=== PATIENT | female | born 1955 | race Caucasian/White ===

== ENCOUNTER → 2018-09-24 09:33 | Outpatient (CLI) | payer OTHER, SELFPAY ==
[2018-09-24 12:47] LABS: Erythrocyte Sedimentation Rate 5 mm/hr (0-30)
[2018-09-24 12:49] LABS: Absolute Lymphocyte Count 2.21 X10^3/ul (0.83-4.51); Absolute Neutrophil Count 3.8 X10^3/uL (2.0-7.7); Basophil# 0.02 X10^3/uL; Basophil% 0.3 % (0-1); Eosinophil# 0.11 X10^3/uL; Eosinophils% 1.7 % (0-5); Hematocrit 45.7 % (37-47); Hemoglobin 14.6 g/dl (12.0-15.0); Lymphocyte # 2.21 X10^3/ul (4.0); Lymphocyte % 33.3 % (19-41); Mean Corp Hgb Conc 31.9 g/gl (32-36); Mean Corpuscular Hgb 29.3 pg (27.0-32.0); Mean Corpuscular Volume 91.8 fL (81-99); Mean Platelet Vol. 10.7 fl (6.2-12.0); Monocyte# 0.47 X10^3/uL; Monocyte% 7.1 % (0-10); Neutrophil % 57.3 % (47-70); Platelet Count 371 K/mm3 (150-450); RBC Distribution Width CV 13.5 % (11.6-14.6); RBC Distribution Width SD 44.6 fl (35.1-43.9); Red Blood Count 4.98 M/mm3 (4.2-5.4); White Blood Count 6.6 K/mm3 (4.4-11.0)
[2018-09-24 12:50] LABS: POSITIVE COUNT NO; POSITIVE DIFFERENTIAL NO; POSITIVE MORPHOLOGY NO
[2018-09-24 13:27] LABS: ALB/GLOB Ratio 1.3 RATIO (0.9-2.4); AST(SGOT) 24 U/L (15-37); Alanine Aminotransfer ALT/SGPT 36 U/L (13-56); Albumin, Serum 4.3 g/dL (3.2-5.0); Alkaline Phosphatase 112 U/L (45-117); Anion Gap 10 (5-15); BUN 17 mg/dL (7-18); BUN/Creat Ratio 25.6 RATIO (10-20); CRP < 2.90 mg/L (0.0-3.0); Calcium,Total 9.1 mg/dL (8.5-10.1); Chloride 106 mmol/L (98-107); Cholesterol 229 mg/dL (200); Creatinine, Serum 0.66 mg/dL (0.55-1.02); EST Glomerular Filtration Rate 96 mL/min (>60); Est Glom Filt Rate - Afr Amer 116 mL/min (>60); Globulin 3.3 g/dL (2.2-4.2); Glucose 77 mg/dL (74-106); High Density Lipoprotein 104 mg/dL; Protein, Total 7.6 g/dL (6.4-8.2); Rheumatoid Factor < 10.0 IU/mL (<15); Sodium Level 143 mmol/L (136-145); Thyroid Stim Hormone (TSH) 2.23 uIU/mL (0.358-3.74); Triglycerides 61 mg/dL; Very Low Density Lipoprotein 12 mg/dL (5-40)
[2018-09-24 13:36] LABS: Vitamin D,25 Hydroxy 12.2 ng/mL (29.95-100.01)
[2018-09-26 08:13] LABS: CCP IgG Antibodies 9 units (0-19)
== END ==
PROVIDERS: Family Provider Nurse Practitioner; PCP Nurse Practitioner; Referring Provider Nurse Practitioner; Visit Provider Nurse Practitioner
DX: M25.549 Pain in joints of unspecified hand (principal); E55.9 Vitamin D deficiency, unspecified; E03.9 Hypothyroidism, unspecified; Z13.220 Encounter for screening for lipoid disorders
CPT/HCPCS: 36415; 80053; 80061; 82306; 84443; 85025; 85652; 86140; 86200; 86431

== ENCOUNTER → 2018-09-29 14:52 | Outpatient (CLI) | payer OTHER, SELFPAY ==
--- NOTE | 2018-09-29 14:54 | RAD_ITS ---
STUDY: X-RAY - LEFT HAND REASON FOR EXAM: Female, 63 years old. Pain. TECHNIQUE: 3 view(s) of the hand. COMPARISON: None. FINDINGS: There is joint space narrowing of the radiocarpal articulation consistent with degenerative arthrosis. Normal distal radioulnar joint. Normal visualized carpal bones. There is degenerative joint disease of the scaphotrapezium / trapezoid articulation. The remainder of the carpal articulations are normal. There is degenerative arthrosis of the carpometacarpal (CMC) articulation of the thumb. Normal second through fifth carpometacarpal joints. Normal metacarpi. Normal metacarpophalangeal joint of the thumb. Normal interphalangeal joint of the thumb. Normal proximal and distal phalanges of the thumb. There is degenerative arthrosis of the metacarpophalangeal (MCP) joints. There is diffuse articular joint space narrowing of the proximal and distal interphalangeal joints of the second through fifth fingers, but without erosive changes or periarticular soft tissue swelling. Normal phalanges of the second through fifth fingers. The soft tissue structures are unremarkable. RAD/Hand Min 3 Views IMPRESSION: Degenerative changes. Electronically Signed: Bryant Acuña, at 10:26 EST , Service support ,
--- NOTE | 2018-09-29 14:54 | RAD_ITS ---
STUDY: X-RAY - RIGHT HAND REASON FOR EXAM: Female, 63 years old. Right hand pain TECHNIQUE: 3 view(s) of the hand. COMPARISON: None. FINDINGS: Degenerative change of the radiocarpal joint. Normal distal radioulnar joint. Normal visualized carpal bones. Normal carpal articulations Moderate degenerative change of the first carpometacarpal and triscaphe the joints. Normal second through fifth carpometacarpal joints. Normal metacarpi. Mild degenerative change of the first metacarpophalangeal joint and interphalangeal joint of the thumb. Normal proximal and distal phalanges of the thumb. Normal metacarpophalangeal joints of the second through fifth fingers. Normal proximal and distal interphalangeal joints of the second through fifth fingers. Normal phalanges of the second through fifth fingers. The soft tissue structures are unremarkable. RAD/Hand Min 3 Views IMPRESSION: Multifocal osteoarthritic change Electronically Signed: Eloy Buckner MD at 0:15 EST Tel , Service support ,
== END ==
PROVIDERS: Family Provider Nurse Practitioner; PCP Nurse Practitioner; Referring Provider Nurse Practitioner; Visit Provider Nurse Practitioner
DX: M25.549 Pain in joints of unspecified hand (principal)
CPT/HCPCS: 73130

== ENCOUNTER → 2018-10-02 13:02 | Outpatient (CLI) | payer OTHER, SELFPAY ==
--- NOTE | 2018-10-02 13:21 | BD_ITS ---
STUDY: DUAL ENERGY X-RAY ABSORPTIOMETRY / DXA REASON FOR EXAM: Female, 63 years old. The patient is postmenopausal. Loss of height. TECHNIQUE: Bone Mineral Density (BMD) measurements of lumbar spine and bilateral hips were obtained. COMPARISON: None. FINDINGS: Lumbar Spine (L1-L4): g/cm2 (0.837) / T-score (-2.9) / Z-score (-1.5) Findings are suggestive of osteoporosis with a high fracture risk. Left Femur Total: g/cm2 (0.773) / T-score (-1.9) / Z-score (-0.8) Left Femoral Neck: g/cm2 (0.776) / T-score (-1.9) / Z-score (-0.5) Right Femur Total: g/cm2 (0.771) / T-score (-1.9) / Z-score (-0.8) Right Femoral Neck: g/cm2 (0.768) / T-score (-1.9) / Z-score (-0.6) BD/Dexa Bone Density Study IMPRESSION: The patient is considered osteoporotic as outlined below according to World Vikram Organization (WHO) criteria with a high fracture risk. Reference Information: The T-score is the number of standard deviations above or below the standard which is normal for young adults at their peak bone mineral density. The World Health Organization (WHO) interprets the T-scores as follows: Above -1 Normal bone density Between -1 and -2.5 Osteopenia Equal to / or below -2.5 Osteoporosis As a practical clinical guideline, osteopenia may be graded as follows: Mild -1 through -1.5 Moderate -1.6 through -2.0 Severe -2.1 through -2.4 The Z-score is the number of standard deviations above or below age-matched controls. A Z-score of less than -1.5 would be considered abnormal. References: 1. NIH Osteoporosis and Related Bone Diseases http://www.osteo.org 2. International Society for Clinical Densitometry http://www.iscd.org 3. National Osteoporosis Foundation http://www.nof.org Electronically Signed: Bryant Acuña, at 11:46 EST , Service support ,
== END ==
PROVIDERS: Family Provider Nurse Practitioner; PCP Nurse Practitioner; Visit Provider Nurse Practitioner
DX: Z13.820 Encounter for screening for osteoporosis (principal)
CPT/HCPCS: 77080

== ENCOUNTER 2018-10-22 23:20 | Emergency (ER) | payer OTHER, SELFPAY ==
[2018-10-22 23:21] VITALS: BP 200/95; PULSE 85; RESP 16; TEMP 37.1; O2SAT 99; BMI 25.7
[2018-10-22 23:33] VITALS: BP 194/85; PULSE 87; RESP 15; O2SAT 97
--- NOTE | 2018-10-22 23:34 | RAD_ITS ---
STUDY: X-RAY CHEST REASON FOR EXAM: Female, 63 years old. Hypertension TECHNIQUE: Frontal and lateral views of the chest. COMPARISON: None. FINDINGS: There is hyperinflation of the lungs consistent with chronic obstructive lung disease (COPD). There is no demonstrated pleural abnormality. Normal size heart. Normal mediastinum and brandt. Normal visualized pulmonary arteries. Normal visualized aortic arch and descending thoracic aorta. There are diffuse degenerative changes of the visualized thoracic spine. Normal visualized ribs, clavicles, and shoulders. There is no demonstrated abnormality of the visualized soft tissue structures of the upper abdomen. RAD/Chest PA and Lateral IMPRESSION: No acute cardiopulmonary disease identified. Findings suggest possible COPD. Electronically Signed: Nathen Borden, at 1:00 EDT Tel , Service support ,
--- NOTE | 2018-10-22 23:34 | EKG12_ITS ---
Test Reason : HYPERTENSION Blood Pressure : / mmHG Vent. Rate : 082 BPM Atrial Rate : 082 BPM P-R Int : 128 ms QRS Dur : 088 ms QT Int : 380 ms P-R-T Axes : 061 026 028 degrees QTc Int : 443 ms Normal sinus rhythm Normal ECG Confirmed by JACI KWONG, SHIRLEY ([id number]), editor in chief newspaper ALBERTO VARNER ([id number]) on 10/23/2018 1:14:39 PM Referred By: Confirmed By:SHIRLEY BEATTY MD
--- NOTE | 2018-10-22 23:39 | ED.DCSUM_ITS ---
- ER Visit Summary Date of Service: 10/22/18 Chief Complaint: Hypertension History of Present Illness: The patient is a 63 F who tells me that 2 weeks ago after a long hiatus she was seen by primary care. Was noted that her blood pressure was around 146 systolic. She is advised to get a blood pressure cuff and monitor her blood pressures at home return in 1 month. She states that tonight she got a blood pressure cuff and took it is in the 176 range. She took it again and it was a little bit more elevated. She states that all day she has felt a little bit off balance. She denies any headache or visual symptoms. No arm or leg weakness or paresthesias. No ringing in the ears or heartbeat in the ear. No neck pain or chest pain. Physical Examination: 194/85 heart rate of 87 respirations are 15 pulse ox 97% room air temperature 97 Gen: Well-nourished well-developed Head: Normocephalic atraumatic Eyes: Perrl EOMI ENT: TMs clear no rhinorrhea moist mucous membranes Neck: Supple no lymphadenopathy no JVD nontender CVS: Regular rate rhythm no murmurs normal S1-S2 Respiratory: No distress clear to auscultation bilaterally chest nontender Abdomen: Soft nontender nondistended normal bowel sounds no masses Back: Nontender Extremity: Nontender no edema Skin: Normal color no rash Neuro: alert orientated ?3 CN II-XII intact normal strength sensation reflexes gait cerebellar (finger to nose and heel to johns normal) NIH 0 Psych: Normal affect normal mood Test Results: BMP shows a normal creatinine. Troponin is negative. EKG is a normal sinus rhythm. Chest x-ray shows a normal mediastinal silhouette. CBC is normal. Head CT is negative. Emergency Department Course and Treatment: Patient's blood pressure has come down on its own to a systolic of 163. I spoke at length with the patient regarding dietary and lifestyle modifications as well as options of beginning treatment versus continued monitoring and following up with primary care. At this point I am going to write 5 mg amlodipine once a day have her continue to monitor pressures and follow-up in the office. Patient and are comfortable with this plan return if worsening or concerns Impression: 1. Primary hypertension This note was generated with FREEjitation software. It may contain incorrect words, spelling, and punctuation that were not noted in review of the chart prior to signing ED Disposition - Plan for ED Patient: Disposition: Home or Assisted Living Instructions: ED Hypertension New Begin Tx Prescriptions: Amlodipine [Norvasc] 5 mg PO DAILY #30 tab Referrals: Connie Billings NP-C [Primary Care Provider] - Keep [facility] appointment
[2018-10-23 00:03] VITALS: BP 170/82
[2018-10-23 00:04] LABS: Absolute Lymphocyte Count 3.11 X10^3/ul (0.83-4.51); Absolute Neutrophil Count 3.5 X10^3/uL (2.0-7.7); Basophil# 0.01 X10^3/uL; Basophil% 0.1 % (0-1); Eosinophils% 1.4 % (0-5); Hematocrit 42.4 % (37-47); Lymphocyte # 3.11 X10^3/ul (4.0); Lymphocyte % 42.2 % (19-41); Mean Corpuscular Hgb 30.2 pg (27.0-32.0); Mean Corpuscular Volume 91.6 fL (81-99); Mean Platelet Vol. 9.8 fl (6.2-12.0); Monocyte# 0.65 X10^3/uL; Monocyte% 8.8 % (0-10); Neutrophil # 3.49 X10^3/uL (2.7-7.7); Neutrophil % 47.4 % (47-70); Platelet Count 357 K/mm3 (150-450); RBC Distribution Width CV 12.9 % (11.6-14.6); RBC Distribution Width SD 42.5 fl (35.1-43.9); Red Blood Count 4.63 M/mm3 (4.2-5.4); White Blood Count 7.4 K/mm3 (4.4-11.0)
[2018-10-23 00:05] LABS: POSITIVE COUNT NO; POSITIVE DIFFERENTIAL NO; POSITIVE MORPHOLOGY NO
[2018-10-23 00:16] LABS: Anion Gap 9 (5-15); BUN 22 mg/dL (7-18); BUN/Creat Ratio 31.3 RATIO (10-20); Calcium,Total 9.1 mg/dL (8.5-10.1); Chloride 106 mmol/L (98-107); EST Glomerular Filtration Rate 90 mL/min (>60); Est Glom Filt Rate - Afr Amer 109 mL/min (>60); Estimated Creatinine Clearance 74.98 ml/min; Glucose 104 mg/dL (74-106); Potassium 3.5 mmol/L (3.5-5.1); Sodium Level 144 mmol/L (136-145)
[2018-10-23 00:56] VITALS: BP 163/86; PULSE 81; RESP 13; O2SAT 96
--- NOTE | 2018-10-23 23:34 | CT_ITS ---
STUDY: CT BRAIN WITHOUT CONTRAST REASON FOR EXAM: Female, 63 years old. Dizziness RADIATION DOSAGE (If Supplied By Facility): CTDIvol = ( 44.99 ) mGy, DLP = ( 762.36 ) mGycm TECHNIQUE: Transaxial CT imaging of the brain was performed without administration of intravenous contrast material. Individualized dose optimization techniques were used for this CT. COMPARISON: No relevant priors. FINDINGS: Normal soft tissue structures. Normal calvarium. Normal size ventricles and extra-axial spaces for the patient's age. Normal white matter tracts of the cerebral hemispheres. Normal basal ganglia and thalami. Normal brainstem. Normal cerebellum. There is no intracranial hemorrhage. There are no findings of an acute ischemic infarction. Normal visualized paranasal sinuses. CT/Brain/Head without Contrast IMPRESSION: Normal unenhanced CT scan of the brain. Electronically Signed: Nathen Borden, at 0:27 EDT Tel , Service support ,
== END 2018-10-23 00:56 | disposition home or self-care (01) ==
PROVIDERS: Emergency Provider Emergency Medicine; Family Provider Nurse Practitioner; PCP Nurse Practitioner
DX: I10 Essential (primary) hypertension (principal); Z79.899 Other long term (current) drug therapy
CPT/HCPCS: 70450; 71046; 80048; 84484; 85025; 93005; 99285

== ENCOUNTER → 2018-10-27 13:31 | Outpatient (CLI) | payer OTHER, SELFPAY ==
[2018-10-22 23:21] VITALS: BMI 25.7
--- NOTE | 2018-10-27 13:32 | BI_ITS ---
MAMMOGRAPHY - BILATERAL SCREENING REASON FOR EXAM: Female, 63 years old. Routine annual screening examination. PERTINENT HISTORY: Non-contributory. Bilateral breast implants. TECHNIQUE: Digital bilateral breast frandy (3D mammographic acquisition) in the CC and MLO projections. 2-D mediolateral oblique (MLO) and craniocaudad (CC) views of both breasts were obtained. CAD: Full Field Digital Mammography with Computer Added Detection was performed. COMPARISON: Comparison is made with prior study dated September 18, 2016 and September 04, 2013. FINDINGS: Breast Composition: The breasts are heterogeneously dense, which may obscure small masses. There are no dominant masses or suspicious calcifications. Stable appearance of the bilateral breast implants. Stable appearance of the bilateral axillary lymph nodes. No other significant abnormalities are identified. There has been no significant change since the prior study. BI/SCREENING MAMM (CAD), BILAT IMPRESSION: Stable bilateral screening mammogram. Yearly follow-up mammogram recommended. (A) ASSESSMENT CATEGORY: BIRADS Category 2: Benign. A letter regarding these results will be sent to the patient by the facility within 30 days. Approximately 10% of breast cancers are not detected by mammography. A normal mammogram should not delay biopsy of a clinically suspicious abnormality. [id number] Electronically Signed: Bryant Acuña, at 15:50 EDT , Service support ,
== END ==
PROVIDERS: Family Provider Nurse Practitioner; PCP Nurse Practitioner; Referring Provider Obstetrics & Gynecology; Visit Provider Obstetrics & Gynecology
DX: Z12.31 Encounter for screening mammogram for malignant neoplasm of breast (principal)
CPT/HCPCS: 77063; 77067

== ENCOUNTER → 2020-02-02 | Outpatient (CLI) | payer OTHER, SELFPAY ==
[2020-02-02 16:44] LABS: Hematocrit 39.8 % (37-47); Hemoglobin 13.3 g/dL (12.0-15.0); Mean Corp Hgb Conc 33.4 g/dL (32-36); Mean Corpuscular Hgb 31.5 pg (27.0-32.0); Mean Corpuscular Volume 94.3 fL (81-99); Mean Platelet Vol. 11.5 fl (6.2-12.0); Platelet Count 215 K/mm3 (150-450); RBC Distribution Width CV 13.9 % (11.6-14.6); RBC Distribution Width SD 47.2 fl (35.1-43.9); Red Blood Count 4.22 M/mm3 (4.2-5.4); White Blood Count 8.1 K/mm3 (4.4-11.0)
[2020-02-02 17:19] LABS: ALB/GLOB Ratio 1.3 RATIO (0.9-2.4); AST(SGOT) 17 U/L (15-37); Alanine Aminotransfer ALT/SGPT 23 U/L (13-56); Albumin, Serum 4.3 g/dL (3.2-5.0); Alkaline Phosphatase 63 U/L (45-117); Anion Gap 7 (5-15); BUN 26 mg/dL (7-18); BUN/Creat Ratio 40.3 RATIO (10-20); Chloride 110 mmol/L (98-107); Creatinine, Serum 0.64 mg/dL (0.55-1.02); EST Glomerular Filtration Rate 99 mL/min (>60); Est Glom Filt Rate - Afr Amer 119 mL/min (>60); Globulin 3.2 g/dL (2.2-4.2); Glucose 107 mg/dL (74-106); Potassium 4.1 mmol/L (3.5-5.1); Protein, Total 7.5 g/dL (6.4-8.2); Sodium Level 146 mmol/L (136-145); Thyroid Stim Hormone (TSH) 0.95 uIU/mL (0.358-3.74)
== END | disposition home or self-care (01) ==
LOC: LABSPEC 15:05
PROVIDERS: PCP Nurse Practitioner; Referring Provider Nurse Practitioner; Visit Provider Nurse Practitioner
DX: E03.9 Hypothyroidism, unspecified (principal); N20.0 Calculus of kidney
CPT/HCPCS: 80053; 84443; 85027

== ENCOUNTER → 2020-11-15 10:13 | Outpatient (CLI) | payer OTHER, SELFPAY ==
--- NOTE | 2020-11-15 10:16 | BI_ITS ---
MAMMOGRAPHY - BILATERAL SCREENING REASON FOR EXAM: Female, 65 years old. Routine annual screening examination. PERTINENT HISTORY: Non-contributory. Bilateral breast implants. TECHNIQUE: Digital bilateral breast mamta (3D mammographic acquisition) in the CC and MLO projections. 2-D mediolateral oblique (MLO) and craniocaudad (CC) views of both breasts were obtained. CAD: Full Field Digital Mammography with Computer Added Detection was performed. COMPARISON: Comparison is made with prior study dated 10/27/2018 and 09/18/2016. FINDINGS: Breast Composition: The breasts are heterogeneously dense, which may obscure small masses. There are no dominant masses or suspicious calcifications. Stable appearance of the bilateral breast implants as well as the benign appearing axillary lymph nodes. No other significant abnormalities are identified. There has been no significant change since the prior study. BI/SCRN MAMM (CAD)W/MAMTA BILAT IMPRESSION: Stable bilateral screening mammogram. Yearly follow-up mammogram recommended. (A) ASSESSMENT CATEGORY: BIRADS Category 2: Benign. A letter regarding these results will be sent to the patient by the facility within 30 days. Approximately 10% of breast cancers are not detected by mammography. A normal mammogram should not delay biopsy of a clinically suspicious abnormality. [id number] Electronically Signed: Bryant Acuña MD at 13:07 EDT , Service support ,
--- NOTE | 2020-11-15 10:18 | BD_ITS ---
STUDY: DUAL ENERGY X-RAY ABSORPTIOMETRY / DXA REASON FOR EXAM: Female, 65 years old. Z780. The patient is postmenopausal. Loss of height. TECHNIQUE: Bone Mineral Density (BMD) measurements of lumbar spine and bilateral hips were obtained. COMPARISON: Comparison is made with prior study dated 10/02/2018. FINDINGS: Lumbar Spine (L1-L4): g/cm2 (0.840) / T-score (-2.8) / Z-score (-1.3) Findings are suggestive of osteoporosis with a high fracture risk. Left Femur Total: g/cm2 (0.770) / T-score (-1.9) / Z-score (-0.7) Left Femoral Neck: g/cm2 (0.761) / T-score (-2.0) / Z-score (-0.6) Right Femur Total: g/cm2 (0.804) / T-score (-1.6) / Z-score (-0.5) Right Femoral Neck: g/cm2 (0.777) / T-score (-1.9) / Z-score (-0.4) The T-Scores on the most recent prior examination were: Lumbar Spine (L1-L4): There has been improvement of bone density since the previous examination. Left Femur Total: which represents a worsening of 0.4%. Right Femur Total: which represents an improvement of 4.3%. BD/Dexa Bone Density Study IMPRESSION: The patient is considered osteoporotic as outlined below according to World Vikram Organization (WHO) criteria with a high fracture risk. There has been improvement of bone density since the previous examination. Reference Information: The T-score is the number of standard deviations above or below the standard which is normal for young adults at their peak bone mineral density. The World Health Organization (WHO) interprets the T-scores as follows: Above -1 Normal bone density Between -1 and -2.5 Osteopenia Equal to / or below -2.5 Osteoporosis As a practical clinical guideline, osteopenia may be graded as follows: Mild -1 through -1.5 Moderate -1.6 through -2.0 Severe -2.1 through -2.4 The Z-score is the number of standard deviations above or below age-matched controls. A Z-score of less than -1.5 would be considered abnormal. References: 1. NIH Osteoporosis and Related Bone Diseases www osteo.org 2. International Society for Clinical Densitometry www iscd.org 3. National Osteoporosis Foundation www nof.org Electronically Signed: Bryant Acuña MD at 14:25 EDT , Service support ,
== END ==
PROVIDERS: PCP Nurse Practitioner; Referring Provider Nurse Practitioner; Visit Provider Nurse Practitioner
DX: Z12.31 Encounter for screening mammogram for malignant neoplasm of breast (principal); Z78.0 Asymptomatic menopausal state
CPT/HCPCS: 77063; 77067; 77080

== ENCOUNTER → 2022-11-20 | Outpatient (CLI) | payer MEDICARE, OTHER, SELFPAY ==
--- NOTE | 2022-11-20 09:11 | BI_ITS ---
MAMMOGRAPHY - BILATERAL SCREENING REASON FOR EXAM: Female, 67 years old. Routine annual screening examination. PERTINENT HISTORY: Non-contributory. Bilateral breast implants. TECHNIQUE: Digital bilateral breast mamta (3D mammographic acquisition) in the CC and MLO projections. 2-D mediolateral oblique (MLO) and craniocaudad (CC) views of both breasts were obtained. CAD: Full Field Digital Mammography with Computer Added Detection was performed. COMPARISON: Comparison is made with prior study November 15, 2020 and October 27, 2018. FINDINGS: Breast Composition: The breasts are heterogeneously dense, which may obscure small masses. There are no dominant masses or suspicious calcifications. Stable appearance of the bilateral breast implants. Stable small benign-appearing bilateral axillary lymph nodes. No other significant abnormalities are identified. There has been no significant change since the prior study. BI/SCRN MAMM (CAD)W/MAMTA BILAT IMPRESSION: Stable bilateral screening mammogram. Yearly follow-up mammogram recommended. (A) ASSESSMENT CATEGORY: BIRADS Category 2: Benign. A letter regarding these results will be sent to the patient by the facility within 30 days. Approximately 10% of breast cancers are not detected by mammography. A normal mammogram should not delay biopsy of a clinically suspicious abnormality. [id number] Electronically Signed: Bryant Acuña MD at 10:32 EDT ,
--- NOTE | 2022-11-20 09:19 | BD_ITS ---
STUDY: DUAL ENERGY X-RAY ABSORPTIOMETRY / DXA REASON FOR EXAM: Female, 67 years old. Z780 TECHNIQUE: Bone Mineral Density (BMD) measurements of lumbar spine and bilateral hips were obtained. COMPARISON: Comparison is made with prior study November 15, 2020. FINDINGS: Lumbar Spine (L1-L4): g/cm2 (0.722) / T-score (-3.0) / Z-score (-1.1) Findings are suggestive of osteoporosis with a high fracture risk. Left Femur Total: g/cm2 (0.735) / T-score (-1.7) / Z-score (-0.4) Left Femoral Neck: g/cm2 (0.637) / T-score (-1.9) / Z-score (-0.3) Right Femur Total: g/cm2 (0.717) / T-score (-1.8) / Z-score (-0.5) Right Femoral Neck: g/cm2 (0.635) / T-score (-1.9) / Z-score (-0.3) The T-Scores on the most recent prior examination were: Lumbar Spine (L1-L4): There has been worsening of bone density since the previous examination. Left Femur Total: which represents an improvement of 3.5%. Right Femur Total: which represents a worsening of 3.7%. BD/Dexa Bone Density Study IMPRESSION: The patient is considered osteoporotic as outlined below according to World Vikram Organization (WHO) criteria with a high fracture risk. There has been worsening of bone density since the previous examination. Reference Information: The T-score is the number of standard deviations above or below the standard which is normal for young adults at their peak bone mineral density. The World Health Organization (WHO) interprets the T-scores as follows: Above -1 Normal bone density Between -1 and -2.5 Osteopenia Equal to / or below -2.5 Osteoporosis As a practical clinical guideline, osteopenia may be graded as follows: Mild -1 through -1.5 Moderate -1.6 through -2.0 Severe -2.1 through -2.4 The Z-score is the number of standard deviations above or below age-matched controls. A Z-score of less than -1.5 would be considered abnormal. References: 1. NIH Osteoporosis and Related Bone Diseases www osteo.org 2. International Society for Clinical Densitometry www iscd.org 3. National Osteoporosis Foundation www nof.org Electronically Signed: Bryant Acuña MD at 9:14 EDT ,
== END | disposition home or self-care (01) ==
LOC: OPBD 09:09
PROVIDERS: PCP Nurse Practitioner; Referring Provider Nurse Practitioner Family; Visit Provider Nurse Practitioner Family
DX: Z12.31 Encounter for screening mammogram for malignant neoplasm of breast (principal); Z78.0 Asymptomatic menopausal state
CPT/HCPCS: 77063; 77067; 77080

== ENCOUNTER → 2023-10-17 | Outpatient (CLI) | payer MEDICARE, OTHER, SELFPAY ==
--- NOTE | 2023-10-17 10:29 | MRI_ITS ---
STUDY: BILATERAL BREAST MR WITHOUT AND WITH CONTRAST REASON FOR EXAM: Female, 68 years old. Right breast pain. Displacement of implant. TECHNIQUE: Multi-sequence multi-echo imaging of both breasts was performed with a dedicated breast coil. T1-weighted and T2-weighted images were performed before the administration of contrast. T1-weighted images were also performed after the intravenous administration of 14 cc of Clariscan contrast. COMPARISON: Mammograms dated 11/20/2022 and 11/15/2020 FINDINGS: RIGHT BREAST: Scattered fibroglandular densities with no significant background enhancement. Subpectoral breast implant in normal position and likely is a dual lumen implant. No complications noted. No abnormal enhancing masses or areas of non-mass enhancement in the right breast. LEFT BREAST: Scattered fibroglandular densities with no significant background enhancement. Left subpectoral silicone implant in normal position without complications. No abnormal enhancing masses or areas of non-mass enhancement in the left breast. No enlarged or abnormal lymph nodes. No abnormality in the visualized regions of the chest or liver. MRI/Breast Bilateral W/O and W IMPRESSION: Right subpectoral implant in normal position and likely a dual lumen implant. No complications noted. Left subpectoral silicone implant in normal position. No other abnormality. CATEGORY: BIRADS Category 2: Benign. A letter regarding these results will be sent to the patient by the facility within 30 days. Electronically Signed: Ran Anderson MD at 12:55 EDT ,
[2023-10-17 10:53] LABS: CREATININE FINGERSTICK < 1.0 mg/dL (0.55-1.02); EGFR FINGERSTICK > 60.0000 mL/min (>60)
== END | disposition home or self-care (01) ==
PROVIDERS: PCP Nurse Practitioner Family; Referring Provider Nurse Practitioner Family; Visit Provider Nurse Practitioner Family
DX: T85.848A Pain due to other internal prosthetic devices, implants and grafts, initial encounter (principal); T85.42XA Displacement of breast prosthesis and implant, initial encounter
CPT/HCPCS: 77049; A9575; A4216; C8908

== ENCOUNTER → 2025-05-11 | Outpatient (CLI) | payer MEDICARE, OTHER, SELFPAY ==
--- NOTE | 2025-05-11 14:46 | ART_ITS ---
Reason For Study Reason For Study: Leg Pain Procedure A bilateral lower extremity continuous wave Doppler with analog waveform analysis and ankle brachial indexes. Left Segmental Pressures Left brachial= 145mmHg. Left posterior tibial artery = 159mmHg. Left dorsalis pedis artery = 148mmHg. Left digit = 103 mmHg. The left dorsalis pedis waveforms are triphasic. The left posterior tibial artery waveforms are triphasic. Right Segmental Pressures Right brachial= 146mmHg. Right posterior tibial artery = 176mmHg. Right dorsalis pedis artery = 160mmHg. Right digit = 123 mmHg. The right dorsalis pedis waveforms are triphasic. The right posterior tibial artery waveforms are triphasic. Indices The right ankle brachial index by the dorsalis pedis is 1.01. The right ankle brachial index by the posterior tibial artery is 1.09. The right digital-brachial index is 0.71. The left ankle brachial index by the dorsalis pedis is 1.10. The left ankle brachial index by the posterior tibial artery is 1.21. The left digital-brachial index is 0.84. VL/Ankle Brachial Index Interpretation Summary Right MIRIAM 1.21, normal. TBI and Doppler/PVR waveforms of the right ankle normal at rest. Left MIRIAM 1.09, normal. Doppler/PVR waveforms of the left ankle normal at rest. TBI diminished, pedal/digit disease vs spasm. Ordering Physician: Peng Campbell Referring Physician: PENG CAMPBELL TILE SETTER APPRENTICE Performed By: GERMAN DEL VALLE RVLewis
== END | disposition home or self-care (01) ==
LOC: CVS 14:42
PROVIDERS: PCP Nurse Practitioner Family; Referring Provider Nurse Practitioner Family; Visit Provider Nurse Practitioner Family
DX: M79.606 Pain in leg, unspecified (principal); I99.9 Unspecified disorder of circulatory system
CPT/HCPCS: 93922

== ENCOUNTER → 2025-05-18 | Outpatient (CLI) | payer MEDICARE, OTHER, SELFPAY ==
--- NOTE | 2025-05-18 07:01 | BI_ITS ---
EXAM: SCRN MAMM (CAD)W/MAMTA BILAT DATE: 05/18/2025 CLINICAL HISTORY: F, Age 70 y/o , SCREENING No family history. Bilateral breast implants. TECHNIQUE: Procedure Code: [id number] Modality: MG Procedure: SCRN MAMM (CAD)W/MAMTA BILAT COMPARISON: Prior exam(s) dated November 20, 2022.. FINDINGS: TISSUE DENSITY: The breasts are heterogeneously dense, which may obscure small masses. Bilateral Breast Mammographic Findings: No significant masses, calcifications or other abnormalities are identified. Stable appearance of the bilateral breast implants. No suspicious masses, areas of developing architectural distortion, or suspicious calcifications. There has been no significant interval change. BI/SCRN MAMM (CAD)W/MAMTA BILAT IMPRESSION: Stable bilateral screening mammogram. OVERALL FINAL ASSESSMENT BI-RADS 2: BENIGN RECOMMENDATION: Routine annual follow-up in 1 Year Additional Recommendation none A letter with findings and recommendations will be mailed to the patient. Reading Location: [place] [id number]
--- NOTE | 2025-05-18 07:04 | BD_ITS ---
PROCEDURE: DEXA BONE DENSITY STUDY 05/18/2025 REASON FOR EXAM: F, age 70 y/o . Postmenopausal. TECHNIQUE: Procedure Code: BDDBD Modality: DX Procedure: DEXA BONE DENSITY STUDY COMPARISON: Prior study dated November 20, 2022. FINDINGS: BMD and T-SCORES Lumbar spine: 0.673 g/cm2, T-score -3.5 Levels: L1 through L4 Change from prior: Loss of 4.7%. Left femoral neck: 0.622 g/cm2, T-score -2.0 Femoral neck comparison data not recommended for monitoring change. Left total hip: 0.731 g/cm2, T-score -1.7 Change from prior: Loss of 0.6%. Right femoral neck: 0.637 g/cm2, T-score -1.9 Femoral neck comparison data not recommended for monitoring change. Right total hip: 0.743 g/cm2, T-score -1.6 Change from prior: Improvement of 3.7%. The World Health Organization has defined the following categories based on bone density: Normal bone density: T-score equal to or greater than -1.0 Osteopenia: T-score between -1.0 and -2.5 Osteoporosis: T-score equal to or less than -2.5 FRAX (or Comparable) Fracture Risk Assessment: 10 Year Probability of Fracture: Major Osteoporotic Fracture: 12th% Hip Fracture: 2.2% (Note: FRAX is not to be reported in setting of normal range bone density, osteoporosis on DEXA, known history of osteoporosis, prior osteoporotic hip or vertebral fracture, or for any patient undergoing pharmacological treatment for bone loss.) The National Osteoporosis Foundation (NOF) recommends pharmacological treatment for patients with a FRAX 10-year risk of 3% or higher for a hip fracture, or 20% or higher for a major osteoporotic fracture, to prevent osteoporosis and reduce fracture risk. The patient does meet the pharmacological treatment recommendations for prevention of osteoporosis. BD/Dexa Bone Density Study IMPRESSION: OSTEOPOROSIS. Recommend follow-up as clinically warranted. Reading Location: [place] [id number]
--- OUTSIDE RECORDS SUMMARY | 2025-05-18 07:04 | XMS RPT_ITS | CCD ---
Author Organization [facility] CliniSywy Care Team Providers Care Street Sweeper Name Role Phone Connie Billings Unavailable Pito Dominguez Unavailable Fast, Maryan A Unavailable Charmaine Enamorado Unavailable Unavailable Unavailable Unavailable Sabrina Luevano Unavailable Unavailable Lu Arvizu Unavailable Jamey Montalvo Unavailable Unavailable Sylvia Montesinos Unavailable Unavailable Abimael Jameson Unavailable Jamey Montalvo Unavailable Unavailable Kathy Go Unavailable Unavailable Unavailable Unavailable Jamey Enamorado Unavailable Unavailable Pito Dominguez Unavailable Connie Billings CNP Unavailable Lu Arvizu Unavailable Pito Dominguez MD Unavailable Fast DO, Maryan A Unavailable Abimael Jameson MD Unavailable Jamey Enamorado LPN Unavailable Unavailable Unavailable Unavailable Connie Billings Unavailable Fast DO, Maryan A Unavailable Slarb Meghan QUIROS Unavailable Unavailable Peng Guzman CNP Attending Unavailable Peng Guzman CNP Referring Unavailable Peng Guzman CNP Consulting Unavailable Peng Guzman CNP Unavailable Peng Guzman CNP Unavailable Marta FLIPPING MACHINE OPERATOR, Kyung Unavailable Unavailable Serenity Camargo MA Unavailable Unavailable Poly DO, Michelle Unavailable CHATA Guzman Primary Care Provider CHATA Guzman Referring Provider Dr. Emilia Concepcion Attending Provider Peng Guzman Primary Care Unavailable Ger Larson Attending Unavailable Peng Guzman Primary Care Unavailable Brennan Robertson Attending Unavailable Peng Guzman Primary Care Unavailable Peng Guzman Attending Unavailable Peng Guzman Referring Unavailable Peng Guzman Attending Unavailable Peng Guzman Referring Unavailable Peng Guzman Primary Care Unavailable Medications Current Medications Medication Drug Class(es) Dates Sig (Normalized) Sig (Original) Black Cohosh (1 source) Start: 10-22-2018 take 540 mg by mouth once daily Black Cohosh Active 540 MG PO DAILY October 22, 2018 12:00am Vitamin D3-Vitamin K2 (Mk4) (K2 Plus D3 Tablet) 1 EACH tablet (1 source) Start: 10-22-2018 Vitamin D3-Vitamin K2 (Mk4) (K2 Plus D3 Tablet) 1 EACH tablet Active 1 EACH PO DAILY October 22, 2018 12:00am Completed/Discontinued Medications Medication Drug Class(es) Dates Sig (Normalized) Sig (Original) alendronic acid 70 mg oral tablet (20 sources) Bisphosphonate Start: 10-06-2019 End: 02-09-2020 Alendronate Sodium 70 MG Oral Tablet 1 (one) Tablet q week for 90 days Quantity: 12 {Tablet} Refills: 3 Ordered: 09-Feb-2020 Connie Billings Start : 09-Feb-2020 End : 09-Feb-2020 Discontinued Comments: Take with wter 30min before first food/drink/med avoid lying down x 30 min Treatment is 3-5 yearswill discontinue on 02-08-due to heartburn Start: 06-09-2019 Alendronate So dium 70 MG Oral Tablet 1 (one) Tablet q week for 0 days Quantity: 4 {Tablet} Refills: 3 Ordered: 09-Jun-2019 Connie Billings CNP, CNP, Mary E Start : 09-Jun-2019 Active Comments: Take with wter 30min before first food/drink/med avoid lying down x 30 min Treatment is 3-5 years Comment on above: Take with wter 30min before first food/drink/med avoid lying down x 30 min Treatment is 3-5 years Take with wter 30min before first food/drink/med avoid lying down x 30 min Treatment is 3-5 yearswill discontinue on 02-08-due to heartburn amLODIPine 10 mg oral tablet (20 sources) Dihydropyridine Calcium Channel Keely Start: 3 take 1 tablet by mouth once daily amLODIPine 10 mg oral tablet 1 (one) Tablet daily for 0 days Quantity: 90 {Tablet} Refills: 3 Ordered: 24-Sep-2022 Peng Guzman CNP Start : 24-Sep-2022 Active Start: 06-29-2022 take 1 tablet by nuha th once daily amLODIPine 10 mg oral tablet 1 (one) Tablet daily for 0 days Quantity: 90 {Tablet} Refills: 3 Ordered: 29-Jun-2022 Peng Guzman CNP Start : 29-Jun-2022 Active Start: 09-06-2021 take 1 tablet by nuha th once daily amLODIPine Besylate 5 MG Oral Tablet 1 (one) Tablet daily for 0 days Quantity: 90 {Tablet} Refills: 3 Ordered: 06-Sep-2021 Poly VERDE Michelle Start : 06-Sep-2021 Active Start: 08-16-2020 take 1 tablet by nuha th once daily amLODIPine Besylate 5 MG Oral Tablet 1 (one) Tablet daily for 0 days Quantity: 90 {Tablet} Refills: 3 Ordered: 16-Aug-2020 Jamey Enamorado LPN Start : 16-Aug-2020 Active Start: 01-26-2019 take 1 tablet by nuha th once daily amLODIPine Besylate 5 MG Oral Tablet 1 (one) Tablet daily for 0 days Quantity: 90 {Tablet} Refills: 3 Ordered: 09-Feb-2020 Connie Billings CNP, CNP, Mary E Start : 09-Feb-2020 Active Start: 11-18-2018 take 1 tablet by nuha th once daily Norvasc 5 MG Oral Tablet 1 (one) Tablet daily for 0 days Quantity: 30 {Tablet} Refills: 3 Ordered: 18-Nov-2018 Connie Billings CNP, CNP, Mary E Start : 18-Nov-2018 Active Start: 10-23-2018 take 1 tablet by nuha th once daily Norvasc 5 MG Oral Tablet 1 (one) Tablet daily for 0 days Quantity: 30 {Tablet} Refills: 3 Ordered: 29-Oct-2018 Awa RACHEL, Huong Awa RACHEL, Connie Hughes Start : 29-Oct-2018 Active amoxicillin 875 mg / clavulanate 125 mg oral tablet (20 sources) Penicillin-class Antibacterial Start: 10-11-2022 End: 12-28-2022 take 1 tablet by mouth twice daily amoxicillin-pot clavulanate 875-125 mg oral tablet 1 (one) Tablet bid for 0 days Quantity: 20 {Tablet} Refills: 0 Ordered: 28-Dec-2022 Meghan Fontaine LPN Start : 11-Oct-2022 End : 28-Dec-2022 Inactive Start: 10-19-2013 End: 02-28-2015 take 1 tablet by mouth twice daily AMOXICILLIN-POT CLAVULANATE, 875-125MG (Oral Tablet) 1 (one) Tablet bid for 0 days Quantity: 28 {Tablet} Refills: 0 Ordered: 28-Feb-2015 Annia Holt Start : 19-Oct-2013 End : 28-Feb-2015 Discontinued aspirin 81 mg delayed release oral tablet (20 sources) Platelet Aggregation Inhibitor, Nonsteroidal Anti-inflammatory Drug take 1 tablet by mouth at bedtime Aspirin 81 MG Oral Tablet Delayed Release one tablet HS (81 MG) Inactive benzonatate 100 mg oral capsule (17 sources) Non-narcotic Antitussive Start: 03-23-20 End: 08-16-19 21 take 1 capsule by mouth three times daily as needed for cough Tessalon Perles 100 MG Oral Capsule 1 (one) Capsule tid prn cough for 0 days Quantity: 30 {Capsule} Refills: 1 Ordered: 16-Aug-2020 Jamey Enamorado LPN Start : 23-Mar-2020 End : 16-Aug-2020 Inactive Calcium Citrate (20 sources) take 2 tablets by mouth once daily Calcium Citrate 2 tablet PO daily Inactive take 2 tablets by mouth once roseanna ly Calcium Citrate 2 tablet PO daily Active cetirizine hydrochloride 10 mg oral capsule (17 sources) Histamine-1 Receptor Antagonist Start: 06-29-2022 take 1 capsule by mouth once daily as needed ZyrTEC 10 mg oral capsule 1 (one) Capsule daily as needed for 0 days Quantity: 30 {Capsule} Refills: 0 Ordered: 29-Jun-2022 Peng Guzman CNP Start : 29-Jun-2022 Active Comments: Medication taken as needed. Start: 08-16-2020 take 1 capsule by mo uth once daily ZyrTEC Allergy 10 MG Oral Capsule 1 (one) Capsule daily for 0 days Quantity: 30 {Capsule} Refills: 0 Ordered: 16-Aug-2020 Connie Billings Mary Start : 16-Aug-2020 Active Start: 03-23-2020 take 1 capsule by mo uth once daily ZyrTEC Allergy 10 MG Oral Capsule 1 (one) Capsule daily for 0 days Quantity: 30 {Capsule} Refills: 0 Ordered: 23-Mar-2020 Connie Billings CNP, CNP, Mary E Start : 23-Mar-2020 Active Comment on above: Medication taken as needed. cholecalciferol 0.125 mg oral capsule (20 sources) Vitamin D Start: take 1 capsule by mouth once daily Vitamin D3 Maximum Strength 5000 UNIT Oral Capsule 1 (one) Capsule Capsule daily for 0 days Quantity: 30 {Capsule} Refills: 0 Ordered: 26-Jan-2019 Connie Billings Start : 26-Jan-2019 Active Start: 10-08-2018 take 1 capsule by mo uth once daily Vitamin D3 Maximum Strength 5000 UNIT Oral Capsule 1 (one) Capsule Capsule daily for 0 days Quantity: 30 {Capsule} Refills: 0 Ordered: 29-Oct-2018 Jamey Montalvo Start : 08-Oct-2018 Active 24 hr clarithromycin 500 mg extended release oral tablet (20 sources) Macrolide Antimicrobial Start: 09-24-2006 End: 02-28-2015 take 2 tablets by mouth every twenty-four hours, then take 1 tablet by mouth every twenty-four hours BIAXIN XL PAC, 500MG (Oral Tablet Extended Release 24 Hour) 2 (two) Tablet ER 24HR Tablet ER 24HR as directed for 0 days Quantity: 1 {Package(s)} Refills: 0 Ordered: 28-Feb-2015 Annia Holt Start : 24-Sep-2006 End : 28-Feb-2015 Discontinued Start: 09-24-2006 End: 02-28-2015 take 2 tablets by mouth every twenty-four hours, then take 1 tablet by mouth every twenty-four hours BIAXIN XL PAC, 500MG (Oral Tablet Extended Release 24 Hour) 2 (two) Tablet ER 24HR Tablet ER 24HR as directed for 0 days Quantity: 1 {Package(s)} Refills: 0 Ordered: 28-Feb-2015 Annia Holt Start : 24-Sep-2006 End : 28-Feb-2015 Discontinued estradiol 0.5 mg oral tablet (20 sources) Estrogen End: 07-05-2017 take 2 tablets by mouth once daily Estradiol 0.5 MG Oral Tablet daily (0.5 MG) End : 05-Jul-2017 Discontinued PREMPRO, 0.3-1.5MG (Oral Tablet) (20 sources) Progestin, Estrogen take 1 tablet by mouth once daily PREMPRO, 0.3-1.5MG (Oral Tablet) 1 tab daily (0.3-1.5 MG) Inactive 12 hr fexofenadine hydrochloride 60 mg / pseudoephedrine hydrochloride 120 mg extended release oral tablet (20 sources) alpha-Adrenergic Agonist, Histamine-1 Receptor Antagonist Start: 09-24-2006 End: 02-28-2015 ELMIRA-D 12 HOUR, 60-120MG (Oral Tablet Extended Release 12 Hour) Tablet ER 12HR Tablet ER 12HR BID for 0 days Quantity: 30 {Tablet_ER_12HR} Refills: 0 Ordered: 24-Sep-2006 Annia Holt Start : 24-Sep-2006 End : 28-Feb-2015 Discontinued Comments: This order discontinued per [facility]. Comment on above: This order discontin ued per [facility]. 12 hr guaiFENesin 600 mg / pseudoephedrine hydrochloride 60 mg extended release oral tablet (17 sources) alpha-Adrenergic Agonist Start: 03-23-2020 End: 08-16-2020 Mucinex D 60-600 MG Oral Tablet Extended Release 12 Hour 1 (one) Tablet bid for 0 days Quantity: 30 {Tablet} Refills: 0 Ordered: 16-Aug-2020 Jamey Enamorado LPN Start : 23-Mar-2020 End : 16-Aug-2020 Inactive levothyroxine sodium 0.05 mg oral tablet (20 sources) l-Thyroxine Start: 09-24-2022 take 1 tablet by mouth once daily Synthroid 50 mcg oral tablet 1 (one) Tablet daily for 0 days Quantity: 90 {Tablet} Refills: 3 Ordered: 24-Sep-2022 Peng Guzman CNP Start : 24-Sep-2022 Active Start: 08-16-2020 take 1 tablet by nuha th once daily Synthroid 50 MCG Oral Tablet 1 (one) Tablet daily for 0 days Quantity: 90 {Tablet} Refills: 3 Ordered: 06-Sep-2021 Connie Billings Start : 06-Sep-2021 Active Start: 09-24-2018 End: 02-09-2020 take 1 tablet by mouth once daily Levothyroxine Sodium 50 MCG Oral Tablet 1 (one) Tablet daily for 90 days Quantity: 90 {Tablet} Refills: 3 Ordered: 09-Feb-2020 Connie Billings Start : 09-Feb-2020 End : 09-Feb-2020 Inactive Start: 07-05-2017 take 1 tablet by nuha th once daily Levothyroxine Sodium 50 MCG Oral Tablet 1 (one) Tablet daily for 30 days Quantity: 30 {Tablet} Refills: 11 Ordered: 05-Jul-2017 Connie Billings CNP, CNP Huong Start : 05-Jul-2017 Active medroxyPROGESTERone acetate 2.5 mg oral tablet (20 sources) Progestin End: 07-05-2017 take 1 mg by mouth once daily MedroxyPROGESTERone Acetate 2.5 MG Oral Tablet daily (2.5 MG) End : 05-Jul-2017 Discontinued meloxicam 15 mg oral tablet (20 sources) Nonsteroidal Anti-inflammator y Drug Start: 10-04-2020 End: 11-20-2021 take 1 tablet by mouth once daily Meloxicam 15 MG Oral Tablet 1 (one) Tablet daily for 0 days Quantity: 30 {Tablet} Refills: 1 Ordered: 20-Nov-2021 Meghan Fontaine LPN Start : 04-Oct-2020 End : 20-Nov-2021 Inactive Meloxicam 15mg d aily Inactive Comments: Rx by Dr. Miller Meloxicam 15mg d aily Active Comments: Rx by Dr. Miller Comment on above: Rx by Dr. Angela BARTON, 80mcg (Subcutaneous Injectable) (Free Text) (3 sources) Start: 9 TYMLOS, 80mcg (Subcutaneous Injectable) (Free Text) as directed for 0 days Quantity: 30 {Pre-filled_Pen_Syringe } Refills: 3 Ordered: 09-Jun-2019 Awa RAMOS HuongSaul Billings CNP Huong Start : 09-Jun-2019 Active vitamin b12 2.5 mg sublingual tablet (14 sources) Vitamin B12 Start: End: 3 take 1 tablet under the tongue once daily cyanocobalamin (vit B-12) 2,500 mcg sublingual tablet 1 (one) Tablet daily for 0 days Quantity: 30 {Tablet} Refills: 0 Ordered: 28-Dec-2022 Meghan Fontaine LPN Start : 18-Aug-2020 End : 28-Dec-2022 Inactive Start: 08-18-2020 take 1 tablet under the tongue once daily Cyanocobalamin 2500 MCG Sublingual Tablet Sublingual 1 (one) Tablet daily for 0 days Quantity: 30 {Tablet} Refills: 0 Ordered: 04-Oct-2020 Jamey Enamorado LPN Start : 18-Aug-2020 Active Problems Active Problems Problem Classification Problem Date Documented Date Episodic/Chronic Calculus of urinary tract (20 sources) Calcium renal calculus ; Translations: [Calcium nephrolithiasis] 07-05-2017 Episodic Complication of device; implant or graft (2 sources) Capsular breast contracture of breast implant; Translations: [Capsular contracture of breast implant, initial encounter] 10-15-2023 Episodic Conditions associated with dizziness or vertigo (17 sources) Benign paroxysmal positional vertigo; Translations: [Benign positional vertigo] 11-27-2021 Episodic Comment on above: gave her vertigo exe rcises to do tid - and gave her stroke warning symptoms to watch for- if not improving let us know send to ent Disorders of lipid metabolism (20 sources) Hyperlipidemia; Translations: [Hyperlipidemia] 06-29-2022 Chronic Comment on above: stable, no meds. enc ouraged ongoing lifestyle modifications. Esophageal disorders (11 sources) Esophageal disorders Essential hypertension (20 sources) Hypertensive disorder; Translations: [Hypertension] 10-29-2018 Chronic Comment on above: controlled on 5mg no rvasc uncontrolled, on 5mg [id number] today was high last visit, increased norvasc to 10mg qd stable, no changes t odaywas high last visit, increased norvasc to 10mg qd Genitourinary symptoms and ill-defined conditions (4 sources) Increased frequency of urination; Translations: [Urinary frequency] 12-28-2022 Episodic Comment on above: she is going to [facility] tablish with CEREAL MILLER as wellurine ok. no infection. send for micro to make sure Influenza (11 sources) Influenza Melanomas of skin (20 sources) Malignant melanoma of skin; Translations: [Malignant melanoma] 10-08-2018 Chronic Comment on above: Has had melanoma, se eing Derm at [facility] Neoplasms of unspecified nature or uncertain behavior (3 sources) Thrombocytosis Chronic Neoplasms of unspecified nature or uncertain behavior (20 sources) Thrombocytosis; Translations: [Thrombocytosis] 07-05-2017 Episodic Comment on above: possibly d/t arthrit is? no prior workup. repeat the cbcd and get peripheral smear, send to hematology remainsintermittent over last several years. plt >500 now. Nonmalignant breast conditions (2 sources) Breasts asymmetrical; Translations: [Other specified disorders of breast] 10-15-2023 Episodic Nutritional deficiencies (20 sources) Vitamin D deficiency; Translations: [Vitamin D deficiency] 09-24-2018 Chronic Comment on above: on 5000units with K from standard process and taking calcium citrate with 500iu bid Total Di is 6000 unitscalcium 800mg Nutritional deficiencies (20 sources) Vitamin B12 deficiency (non anemic); Translations: [Cobalamin deficiency] 08-23-2020 Episodic Comment on above: (start B12 weekly x 2 weeks then start OTC Sublingual B12 daily continue otc B12 Osteoarthritis (20 sources) Primary osteoarthritis, unspecified hand; Translations: [Osteoarthritis] 10-08-2018 Chronic Comment on above: multiple sites Seeing Flaquita wiggins, on meloxicam and helpful Osteoporosis (20 sources) Osteoporosis; Translations: [Osteoporosis] 10-08-2018 Chronic Comment on above: history of kidney st ones and osteoporosis , has low Vit D now supplementing, and adding check parathyroid hormone history of kidney st ones and osteoporosis , has low Vit D now supplementing, and adding check parathyroid [id number] taking 6000 of D3 with K, and 800mg calcitrate with D total D is 6000 dailyHas had normal PTH and TSH within range on thyroid hormone history of kidney st ones and osteoporosis , has low Vit D now supplementing, and adding check parathyroid [id number] taking 6000 of D3 with K, and 800mg calcitrate with D total D is 6000 dailyHas had normal PTH and TSH within range on thyroid hormoneShe will try [facility] for [facility] Other circulatory disease (20 sources) Elevated blood-pressure reading without diagnosis of hypertension; Translations: [Elevated blood pressure (not hypertension)] Resolved: 7 08-26-2018 Episodic Comment on above: reevaluate in 3 jarrett hs Other circulatory disease (1 source) Other specified symptoms and signs involving the circulatory and respiratory systems; Translations: [Other specified symptoms and signs involving the circulatory and respiratory systems] Onset: 5 Episodic Other lower respiratory disease (20 sources) Cough; Translations: [Cough] Resolved: 6 04-05-2016 Episodic Comment on above: no signs and symptom s rightr now of bacterial infection. told could progress to worsen bacterial infection. will call if worsen or fever next week Other nervous system disorders (20 sources) Paresthesia of foot ; Translations: [Paresthesia of foot] 08-16-2020 Episodic Comment on above: both feet, will get labs consider nerve conduction if problem still exists Other non-traumatic joint disorders (3 sources) Inflammation of joint of both hands Chronic Other non-traumatic joint disorders (20 sources) Joint pain; Translations: [Pain in unspecified joint] Resolved: 7 08-26-2018 Episodic Other non-traumatic joint disorders (20 sources) Hand joint pain; Translations: [Hand joint pain] 09-24-2018 Episodic Other nutritional; endocrine; and metabolic disorders (20 sources) Body mass index 25-29 - overweight; Translations: [BMI 27.0-27.9,adult] 09-24-2018 Chronic Other nutritional; endocrine; and metabolic disorders (18 sources) Body mass index 25-29 - overweight; Translations: [BMI 25.0-25.9,adult] 10-04-2020 Episodic Other nutritional; endocrine; and metabolic disorders (20 sources) Overweight in adulthood with body mass index of 25 or more but less than 30; Translations: [BMI 25.0-25.9,adult] 03-23-2020 Episodic Other screening for suspected conditions (not mental disorders or infectious disease) (20 sources) Breast neoplasm screening status; Translations: [Patient encounter status] Onset: 5 10-29-2018 Episodic Other skin disorders (20 sources) Sebaceous cyst; Translations: [Cyst of neck] 07-05-2017 Episodic Other upper respiratory disease (20 sources) Allergic rhinitis; Translations: [Allergic rhinitis] 03-23-2020 Chronic Other upper respiratory infections (10 sources) Bacterial sinusitis; Translations: [Bacterial sinusitis] 10-11-2022 Chronic Other upper respiratory infections (20 sources) Acute sinusitis, unspecified; Translations: [Acute sinusitis] Resolved: 5 05-03-2015 Episodic Residual codes; unclassified (1 source) Breast prosthesis in situ; Translations: [Breast implant status] 10-15-2023 Chronic Residual codes; unclassified (1 source) Breast implant status; Translations: [Breast replacement] 10-15-2023 Chronic Residual codes; unclassified (20 sources) Postmenopausal state; Translations: [Post-menopausal] 07-05-2017 Episodic Comment on above: inquiring about Charmaine Nayely Residual codes; unclassified (20 sources) Body Mass Index between 19-24, adult; Translations: [Finding of body mass index] 07-05-2017 Episodic Residual codes; unclassified (20 sources) Non-smoker; Translations: [Nonsmoker] 10-04-2020 Episodic Residual codes; unclassified (1 source) Asymptomatic menopausal state; Translations: [Asymptomatic menopausal state] Onset: Episodic Thyroid disorders (20 sources) Hypothyroidism; Translations: [Hypothyroidism] 07-05-2017 Chronic Comment on above: controlled at 50mcg stable, continue syn throid 50mcg (as of 11/2022) Unclassified (20 sources) Post-menopausal Unclassified (20 sources) Cyst of neck Unclassified (20 sources) Screening status; Translations: [Encounter for screening for malignant neoplasm of colon (Renamed from Special screening for malignant neoplasms, colon)] 07-05-2017 Unclassified (20 sources) Patient encounter status; Translations: [Encounter for screening mammogram for breast cancer (Renamed from Encounter for screening mammogram for malignant neoplasm of breast)] 07-05-2017 Unclassified (20 sources) Unclassified (20 sources) Non-smoker; Translations: [Nonsmoker] 07-05-2017 Unclassified (20 sources) BMI between 19-24,adult; Translations: [Finding of body mass index] 01-26-2019 Unclassified (20 sources) Calcium nephrolithiasis Unclassified (20 sources) Elevated blood pressure (not hypertension) Unclassified (20 sources) BMI 27.0-27.9,adult Unclassified (20 sources) Encounter for screening for lipid disorder Unclassified (20 sources) BMI 26.0-26.9,adult Unclassified (16 sources) Arthritis of both hands Unclassified (20 sources) BMI 25.0-25.9,adult Past or Other Problems Problem Classification Problem Date Documented Date Episodic/Chronic Conditions associated with dizziness or vertigo (1 source) Conditions associated with dizziness or vertigo Osteoarthritis (20 sources) Degenerative joint disease of thumb; Translations: [Osteoarthritis, hand] 01-26-2019 Comment on above: multiple sites Other non-traumatic joint disorders (16 sources) Inflammation of joint of both hands; Translations: [Arthritis of both hands] 06-09-2019 Other skin disorders (20 sources) Cyst of neck; Translations: [Cyst of neck] 01-26-2019 Unclassified (20 sources) Deliveries (Parity); Translations: [Deliveries (Parity)] 07-05-2017 Comment on above: 2. Unclassified (20 sources) Pregnancies (); Translations: [Pregnancies ()] 07-05-2017 Comment on above: 2. Unclassified (20 sources) ARTHRALGIAS 719.40 Unclassified (20 sources) screening Resolved: 03-15-2015 03-15-2015 Unclassified (20 sources) Nephrolithiasis (274.11) Unclassified (20 sources) Osteoarthritis, hand NEGATED: Highlighted row has been ruled out!Unclassified (20 sources) Problem Onset: 02-28-2015 05-05-2015 Results Test Name Value Interpretation Reference Range Facility Ankle Brachial Indexon 05-11 Ankle Brachial Index [facility] [address] [place] [address] Ankle Brachial Index 05/11/25 1453 MR#: [id number] Acct: [id number] Name: MANAS LYNN Rep #: [id number] : [id number] From: Brennan Robertson MD Attending Dr: Peng Guzman ROLL LINE OPERATOR-C Status: REG CLI Ordering Dr: Peng Guzman ROLL LINE OPERATOR-C Date: 05/11/25 Location: [facility] Sex: F C Admitted: Reason For Study Reason For Study: Leg Pain Procedure A bilateral lower extremity continuous wave Doppler with analog waveform analysis and ankle brachial indexes. Left Segmental Pressures Left brachial= 145mmHg. Left posterior tibial artery = 159mmHg. Left dorsalis pedis artery = 148mmHg. Left digit = 103 mmHg. The left dorsalis pedis waveforms are triphasic. The left posterior tibial artery waveforms are triphasic. Right Segmental Pressures Right brachial= 146mmHg. Right posterior tibial artery = 176mmHg. Right dorsalis pedis artery = 160mmHg. Right digit = 123 mmHg. The right dorsalis pedis waveforms are triphasic. The right posterior tibial artery waveforms are triphasic. Indices The right ankle brachial index by the dorsalis pedis is 1.01. The right ankle brachial index by the posterior tibial artery is 1.09. The right digital-brachial index is 0.71. The left ankle brachial index by the dorsalis pedis is 1.10. The left ankle brachial index by the posterior tibial artery is 1.21. The left digital-brachial index is 0.84. VL/Ankle Brachial Index Interpretation Summary Right MIRIAM 1.21, normal. TBI and Doppler/PVR waveforms of the right ankle normal at rest. Left MIRIAM 1.09, normal. Doppler/PVR waveforms of the left ankle normal at rest. TBI diminished, pedal/digit disease vs spasm. Ordering Physician: Peng Guzman Referring Physician: PENG GUZMAN ROLL LINE OPERATOR Performed By: GERMAN DEL VALLE RVT 05/12/25 1022 Date Brennan Robertson MD CC: CHATA Guzman Date Dictated: 05/11/25 1453 Date Transcribed: 05/12/25 1022 Supervisor Reclamation: Signed Normal [facility] Ankle min 3 Viewson 06-16-20 Ankle min [address] [facility] Radiology [address] [place] [address] Ankle min 3 Views MR#: [id number] Acct: [id number] Name: MANAS LYNN Rep #: [id number] : [id number] F [id number] From: Manjinder Morillo MD PCP: CHATA Mcwilliams Status: DEP AMB Study: Ankle min 3 Views Date of Exam: 06/16/24 Exam# [id number] Ordering Dr: Peng Guzman [id number] STUDY: X-RAY - LEFT ANKLE REASON FOR EXAM: Female, 69 years old. ANKLE PAIN TECHNIQUE: 3 views of the left ankle. COMPARISON: None. FINDINGS: Normal visualized distal tibia and fibula. Normal medial and lateral malleoli. Normal tibiotalar articulation and ankle mortise. Normal visualized talus and calcaneus. The visualized subtalar, talonavicular, calcaneocuboid and tarsal articulations are normal. There is no demonstrated fracture. There is mild soft tissue swelling overlying the lateral malleolus. RAD/Ankle min 3 Views IMPRESSION: Mild soft tissue swelling overlying the lateral malleolus. No demonstrated fracture. Electronically Signed: Manjinder Morillo MD at 9:55 EST , CC: CHATA Gumzan Supervisor Reclamation: Signed Normal [facility] Basophil percentageOrdered B y: Peng Guzman on 10-17-2023 Basophil percentage < 1.0 mg/dL 0.55-1.02 [facility] No Panel InformationOrdered By: Peng Guzman on 10-17-2023 Bedside Estimated GFR (eGFR) > 60.0000 mL/min >60 [facility] Urinalysis, Office ([id number])Or dered By: Meghan Fontaine on 12-28-2022 Bilirubin Ql (U) Negative Normal Comprehe nsive Internal Medicine; [facility] Work Phone: Glucose Test strip (U) [Mass/Vol] Negative Normal [facility]; [facility] Work Phone: Hemoglobin Ql (U) Negative Normal Compreh ensive Internal Medicine; [facility] Work Phone: Ketones Ql (U) Negative Normal Comprehens arlyn Internal Medicine; [facility] Work Phone: Leukocyte esterase Test strip Ql (U) Trace Normal [facility]; [facility] Work Phone: Nitrite Ql (U) Negative Normal Comprehens arlyn [facility]; [facility] Work Phone: pH (U) 6.0 [pH] Normal [facility]; [facility] Work Phone: Protein Ql (U) Negative Normal Comprehens arlyn [facility]; [facility] Work Phone: Specific gravity (U) [Rel density] 1.025 1 Normal [facility]; [facility] Work Phone: Urobilinogen (24H U) [Mass/Time] Normal Normal [facility]; [facility] Work Phone: CBC, PLATELETS & AUT DIFF (3 1473)Ordered By: Rail Walker on 12-25-2022 Basophils (Bld) [#/Vol] 0.0 10*3/uL Normal 0.0-0.2 [facility]; [facility] Work Phone: Comment on above: PATIENT WAS FASTINGP ERFORMED BY: LUIS DANIEL [employer]70 ResearchGateUNC Health Nash [id number] Basophils/100 WBC (Bld) 0 % Normal [facility]; [facility] Work Phone: Comment on above: PATIENT WAS FASTINGP ERFORMED BY: LUIS DANIEL Mirna TherapeuticsUNC Health Nash [id number] Eosinophils (Bld) [#/Vol] 0.2 10*3/uL Normal 0.0-0.4 [facility]; [facility] Work Phone: Comment on above: PATIENT WAS FASTINGP ERFORMED BY: LUIS DANIEL Catalinanova Sxcyhh1324 Mag[address]on RoadCarteret Health Carein [place] [id number] Eosinophils/100 WBC (Bld) 2 % Normal [facility]; [facility] Work Phone: Comment on above: PATIENT WAS FASTINGP ERFORMED BY: LUIS DANIEL Catalinacox south Vfewhi5434 [address] [facility] [id number] Erythrocyte distribution width (RBC) [Ratio] 13.1 % Normal 11.7-15.4 [facility]; [facility] Work Phone: Comment on above: PATIENT WAS FASTINGP ERFORMED BY: LUIS DANIEL [place] Xghmew2378 [facility] [id number] Hematocrit (Bld) [Volume fraction] 42.5 % Normal 34.0-46.6 [facility]; [facility] Work Phone: Comment on above: PATIENT WAS FASTINGP ERFORMED BY: LUIS DANIEL Catalinac[address] south Pxtvha6435 [address] [facility] [id number] Hemoglobin (Bld) [Mass/Vol] 13.8 g/dL Normal 11.1-15.9 [facility]; [facility] Work Phone: Comment on above: PATIENT WAS FASTINGP ERFORMED BY: LabHarbor Oaks Hospital6370 [address] [facility] [id number] Immature granulocytes (Bld) [#/Vol] 0.0 10*3/uL Normal 0.0-0.1 [facility]; [facility] Work Phone: Comment on above: PATIENT WAS FASTINGP ERFORMED BY: LUIS DANIEL Labcox south Bvmhik2146 [address] [facility] [id number] Immature granulocytes/100 WBC (Bld) 0 % Normal [facility]; [facility] Work Phone: Comment on above: PATIENT WAS FASTINGP ERFORMED BY: [facility] [facility] [place] [id number] Lymphocytes (Bld) [#/Vol] 2.5 10*3/uL Normal 0.7-3.1 [facility]; [facility] Work Phone: Comment on above: PATIENT WAS FASTINGP ERFORMED BY: LabHarbor Oaks Hospital6370 [address] [facility] [id number] Lymphocytes/100 WBC (Bld) 30 % Normal [facility]; [facility] Work Phone: Comment on above: PATIENT WAS FASTINGP ERFORMED BY: LabHarbor Oaks Hospital6[address] [facility] [id number] MCH (RBC) [Entitic mass] 28.9 pg Normal 26.6-33.0 [facility]; [facility] Work Phone: Comment on above: PATIENT WAS FASTINGP ERFORMED BY: [place] 1897970 [facility] [id number] MCHC (RBC) [Mass/Vol] 32.5 g/dL Normal 31.5-35.7 [facility] prehensive Internal Medicine; [facility] Work Phone: Comment on above: PATIENT WAS FASTINGP ERFORMED BY: CatalinaHarbor Oaks Hospital6370 [facility] [id number] MCV (RBC) [Entitic vol] 89 fL Normal 79-97 [facility]; [facility] Work Phone: Comment on above: PATIENT WAS FASTINGP ERFORMED BY: [facility]6370 [facility] [id number] Monocytes (Bld) [#/Vol] 0.7 10*3/uL Normal 0.1-0.9 [facility]; [facility] Work Phone: Comment on above: PATIENT WAS FASTINGP ERFORMED BY: LabHarbor [facility]aks Hospital[address] [facility] [place] [id number] Monocytes/100 WBC (Bld) 8 % Normal [facility]; [facility] Work Phone: Comment on above: PATIENT WAS FASTINGP ERFORMED BY: CB [facility] Jimaus9447 Mag[address]on RoadDublin [place] [id number] Neutrophils (Bld) [#/Vol] 4.9 10*3/uL Normal 1.4-7.0 [facility]; [facility] Internal Medicine Work Phone: Comment on above: PATIENT WAS FASTINGP ERFORMED BY: CB [facility] Wndulw6239 [address] RoadDublin [place] [id number] Neutrophils/100 WBC (Bld) 60 % Normal [facility]; [facility] Internal Medicine Work Phone: Comment on above: PATIENT WAS FASTINGP ERFORMED BY: CB [facility] Xirgya8810 [address] RoadDublin [place] [id number] Platelets (Bld) [#/Vol] 508 10*3/uL Abnormal 150-450 [facility]; [facility] Internal Medicine Work Phone: Comment on above: PATIENT WAS FASTINGP ERFORMED BY: CB [facility] Cpvvhj4096 [address] RoadDublin [place] [id number] RBC (Bld) [#/Vol] 4.77 10*6/uL Normal 3.77-5.28 [facility] Internal Medicine; [facility] Internal Medicine Work Phone: Comment on above: PATIENT WAS FASTINGP ERFORMED BY: CB [facility] Gdrxbp3632 [address] RoadDublin [place] [id number] WBC (Bld) [#/Vol] 8.3 10*3/uL Normal 3.4-10.[address] [facility] Internal Medicine; [facility] Internal Medicine Work Phone: Comment on above: PATIENT WAS FASTINGP ERFORMED BY: CB [facility] Hwtlpz8506 [address] RoadDublin [place] [id number] METABOLIC PANEL, COMPREHENSI VE (51124)Ordered By: Rail Walker on 12-25-2022 Albumin [Mass/Vol] 4.7 g/dL Normal 3.8-4.[address] [facility] Internal Medicine; [facility] Work Phone: Comment on above: PATIENT WAS FASTINGP ERFORMED BY: CB [facility] Tmwhnu0918 [address] RoadDublin [place] [id number] Albumin/Globulin [Mass ratio] 1.8 {ratio} Normal 1.2-2.2 [facility]; [facility] Work Phone: Comment on above: PATIENT WAS FASTINGP ERFORMED BY: LUIS DANIEL Estrella6370 [address] RoadDublin [place] [id number] ALP [Catalytic activity/Vol] 118 U/L Normal 44-121 [facility]; [facility] Work Phone: Comment on above: PATIENT WAS FASTINGP ERFORMED BY: [facility] Dtoxqa8213 [address] RoadDublin [place] [id number] ALT [Catalytic activity/Vol] 17 U/L Normal 0-32 [facility]; [facility] Work Phone: Comment on above: PATIENT WAS FASTINGP ERFORMED BY: Labcox south Ytiubo3451 [address] RoadDublin [place] [id number] AST [Catalytic activity/Vol] 20 U/L Normal 0-40 [facility]; [facility] Work Phone: Comment on above: PATIENT WAS FASTINGP ERFORMED BY: LabMissouri Southern HealthcareAtqhsp1567 Magallon RoadDublin [place] [id number] Bilirubin [Mass/Vol] 0.6 mg/dL Normal 0.0-1.2 [facility] Centerensive Internal [facility]; [facility] Work Phone: Comment on above: PATIENT WAS FASTINGP ERFORMED BY: Labcox south Pbnebh7730 [address] RoadDublin [place] [id number] Calcium [Mass/Vol] 9.6 mg/dL Normal 8.7-10.[address] [facility] Internal Medicine; [facility] Work Phone: Comment on above: PATIENT WAS FASTINGP ERFORMED BY: [facility] Jwinfq1475 [address] RoadDublin [place] [id number] Chloride [Moles/Vol] 103 mmol/L Normal 96-106 [facility] Centerensive Internal Medicine; [facility] Work Phone: Comment on above: PATIENT WAS FASTINGP ERFORMED BY: Labcox south Ufivgj4834 [address] RoadDublin [place] [id number] CO2 [Moles/Vol] 25 mmol/L Normal 20-29 Comprehen sive Internal Medicine; [facility] Work Phone: Comment on above: PATIENT WAS FASTINGP ERFORMED BY: LUIS DANIEL Estrella6370 [facility] [id number] Creatinine [Mass/Vol] 0.61 mg/dL Normal 0.57-1.00 [facility] prehensive Internal Medicine; [facility] Work Phone: Comment on above: PATIENT WAS FASTINGP ERFORMED BY: Labcox south Zhktow3296 [facility] [id number] GFR/1.73 sq M.predicted among non-blacks MDRD (S/P/Bld) [Vol rate/Area] 99 mL/min/{1.73_m2} Normal Comprehensiv e Internal Medicine; [facility] Work Phone: Comment on above: PATIENT WAS FASTINGP ERFORMED BY: Catalinacox south Uombkg5979 [facility] [id number] Globulin (S) [Mass/Vol] 2.6 g/dL Normal 1.5-4.5 [facility]; [facility] Work Phone: Comment on above: PATIENT WAS FASTINGP ERFORMED BY: Helen Kicxqu9615 [facility] [id number] Glucose [Mass/Vol] 86 mg/dL Normal 70-99 [facility]ale dorothea dix hospitalive [facility]; [facility] Work Phone: Comment on above: PATIENT WAS FASTINGP ERFORMED BY: Labcox south Plbefu0555 [facility] [id number] Potassium [Moles/Vol] 4.4 mmol/L Normal 3.5-5.2 [facility] prehensive Internal Medicine; [facility] Work Phone: Comment on above: PATIENT WAS FASTINGP ERFORMED BY: Labco Ngewxw7228 [facility] [id number] Protein [Mass/Vol] 7.3 g/dL Normal 6.0-8.5 [facility] Hospitale hensive Internal Medicine; [facility] Work Phone: Comment on above: PATIENT WAS FASTINGP ERFORMED BY: LUIS DANIEL [facility] Qcofoz[address] [facility]in [place] [id number] Sodium [Moles/Vol] 143 mmol/L Normal 134-[address] [facility] Internal Medicine; [facility] Work Phone: Comment on above: PATIENT WAS FASTINGP ERFORMED BY: [facility] Tdppta3321 [address] [facility] [id number] Urea nitrogen [Mass/Vol] 13 mg/dL Normal 8-27 [facility]; [facility] Work Phone: Comment on above: PATIENT WAS FASTINGP ERFORMED BY: [facility] Puqayf5167 [address] [facility] [id number] Urea nitrogen/Creatinine [Mass ratio] 21 mg/mg Normal 12-28 [facility]; [facility] Work Phone: Comment on above: PATIENT WAS FASTINGP ERFORMED BY: [facility] Hklmvl2825 [facility] [id number] TSH (THYROID STIMULATING HOR JONAH) ([id number])Ordered By: Rail Walker on 12-25-2022 TSH Qn 2.260 {uIU/mL} Normal 0.450-4.500 [facility] Internal Medicine; [facility] Work Phone: Comment on above: PATIENT WAS FASTINGP ERFORMED BY: [facility] Iyqpwy1797 [address] [facility] [id number] VITAMIN B12 AND FOLATES (826 07)Ordered By: Rail Walker on 12-25-2022 Cobalamin (Vitamin B12) [Mass/Vol] 635 pg/mL Normal 232-1245 [facility]; [facility] Work Phone: Comment on above: PATIENT WAS FASTINGP ERFORMED BY: [facility] Uibeis[address] [facility]bl[facility] [place] [id number] Folate [Mass/Vol] 10.9 ng/mL Normal Compreh ensive Internal Medicine; [facility] Work Phone: Comment on above: A serum folate jay ntration of less than 3.1 ng/mL isconsidered to represent clinical deficiency. PATIENT WAS FASTINGP ERFORMED BY: Labcox south Eupjfl0427 [facility] [id number] CBC, PLATELETS & AUT DIFF ([id number])Ordered By: Rail Walker on 06-29-2022 Basophils (Bld) [#/Vol] 0.0 10*3/uL Normal 0.0-0.2 [facility]; [facility] Work Phone: Comment on above: PATIENT WAS FASTINGP ERFORMED BY: LabOcular TherapeutixRobert Wood Johnson [facility] Hospital SomersetRbvdsu7995 [facility] [id number] BY: [address] [id number] Basophils/100 WBC (Bld) 0 % Normal [facility]; [facility] Work Phone: Comment on above: PATIENT WAS FASTINGP ERFORMED BY: RevenewRobert Wood Johnson [facility] Hospital SomersetZmicvb8331 [facility] [id number] BY: [address] [id number] Eosinophils (Bld) [#/Vol] 0.1 10*3/uL Normal 0.0-0.4 [facility]; [facility] Work Phone: Comment on above: PATIENT WAS FASTINGP ERFORMED BY: RevenewRobert Wood Johnson [facility] Hospital SomersetAwtzqv1558 [facility] [id number] BY: [address] [id number] Eosinophils/100 WBC (Bld) 1 % Normal [facility]; [facility] Work Phone: Comment on above: PATIENT WAS FASTINGP ERFORMED BY: LabOcular TherapeutixRobert Wood [facility] SomersetUvilaq8282 [facility] [id number] BY: [address] [id number] Erythrocyte distribution width (RBC) [Ratio] 12.8 % Normal 11.7-15.4 [facility]; [facility] Work Phone: Comment on above: PATIENT WAS FASTINGP ERFORMED BY: Lab[facility] Qljili4807 [facility] [id number] BY: [address] [id number] Hematocrit (Bld) [Volume fraction] 42.6 % Normal 34.0-46.6 [facility]; [facility] Work Phone: Comment on above: PATIENT WAS FASTINGP ERFORMED BY: [facility] Uzqbfw2421 [facility] [id number] BY: [address] [id number] Hemoglobin (Bld) [Mass/Vol] 14.3 g/dL Normal 11.1-15.9 [facility]; [facility] Work Phone: Comment on above: PATIENT WAS FASTINGP ERFORMED BY: [facility] Syqlmb6565 [facility] [id number] BY: [address] [id number] Immature granulocytes (Bld) [#/Vol] 0.0 10*3/uL Normal 0.0-0.1 [facility]; [facility] Work Phone: Comment on above: PATIENT WAS FASTINGP ERFORMED BY: [facility] Xikead0972 [facility] [id number] BY: [address] [id number] Immature granulocytes/100 WBC (Bld) 0 % Normal [facility]; [facility] Work Phone: Comment on above: PATIENT WAS FASTINGP ERFORMED BY: [facility] Jtllxy6526 [facility] [id number] BY: [address] [id number] Lymphocytes (Bld) [#/Vol] 1.0 10*3/uL Normal 0.7-3.1 [facility]; [facility] Work Phone: Comment on above: PATIENT WAS FASTINGP ERFORMED BY: [facility] Fjeikz1881 [facility] [id number] BY: [address] [id number] Lymphocytes/100 WBC (Bld) 15 % Normal [facility]; [facility] Work Phone: Comment on above: PATIENT WAS FASTINGP ERFORMED BY: [facility] Astsgw3818 [facility] [id number] BY: [address] [id number] MCH (RBC) [Entitic mass] 30.3 pg Normal 26.6-33.0 [facility]; [facility] Work Phone: Comment on above: PATIENT WAS FASTINGP ERFORMED BY: [facility] Xqjcbg3954 [facility] [id number] BY: Lab[address] [id number] MCHC (RBC) [Mass/Vol] 33.6 g/dL Normal 31.5-35.7 [facility] prehensive Internal Medicine; [facility] Work Phone: Comment on above: PATIENT WAS FASTINGP ERFORMED BY: [facility] Eiqywk7199 [facility] [id number] BY: [address] [id number] MCV (RBC) [Entitic vol] 90 fL Normal 79-97 [facility]; [facility] Work Phone: Comment on above: PATIENT WAS FASTINGP ERFORMED BY: [facility] Vkjtmc2586 [facility] [id number] BY: [address] [id number] Monocytes (Bld) [#/Vol] 0.9 10*3/uL Normal 0.1-0.9 [facility]; [facility] Work Phone: Comment on above: PATIENT WAS FASTINGP ERFORMED BY: LUIS DANIEL [facility] Wmgowh4248 [address] [facility] [id number] BY: BN [facility] [address] [id number] Monocytes/100 WBC (Bld) 15 % Normal [facility]; [facility] Work Phone: Comment on above: PATIENT WAS FASTINGP ERFORMED BY: LUIS DANIEL [facility] Hscxce5690 [address] [facility] [id number] BY: BN [facility] [address] [id number] Neutrophils (Bld) [#/Vol] 4.3 10*3/uL Normal 1.4-7.0 [facility]; [facility] Work Phone: Comment on above: PATIENT WAS FASTINGP ERFORMED BY: LUIS DANIEL [facility] Qqgnvm6410 [address] [facility] [id number] BY: [facility] [address] [id number] Neutrophils/100 WBC (Bld) 69 % Normal [facility]; [facility] Work Phone: Comment on above: PATIENT WAS FASTINGP ERFORMED BY: LUIS DANIEL Labalexarp Ohbimz0474 [address] [facility] [id number] BY: TEDDY [facility] [address] [id number] Platelets (Bld) [#/Vol] 334 10*3/uL Normal 150-450 [facility]; [facility] Work Phone: Comment on above: PATIENT WAS FASTINGP ERFORMED BY: LUIS DANIEL [facility] Bqkhph2142 [address] [facility] [id number] BY: [facility] [address] [id number] RBC (Bld) [#/Vol] 4.72 10*6/uL Normal 3.77-5.28 [facility] Internal Medicine; [facility] Work Phone: Comment on above: PATIENT WAS FASTINGP ERFORMED BY: LUIS DANIEL [facility] Avimwu5983 [facility] [id number] BY: [address] [id number] WBC (Bld) [#/Vol] 6.3 10*3/uL Normal 3.4-10.8 [facility] Internal Medicine; [facility] Work Phone: Comment on above: PATIENT WAS FASTINGP ERFORMED BY: LUIS DANIEL [facility] Drbbms4152 [facility] [id number] BY: Lab[address] [id number] LIPID PANEL (43058)Ordered B y: Rail Walker on 06-29-2022 Cholesterol [Mass/Vol] 203 mg/dL Abnormal 100-199 [facility]; [facility] Work Phone: Comment on above: fasting; PATIENT WAS FASTINGPERFORMED BY: LUIS DANIEL LabOcular TherapeutixRobert Wood [facility] Hospital SomersetMperxf2812 [facility] [id number] BY: Lab[address] [id number] Cholesterol in HDL [Mass/Vol] 82 mg/dL Normal [facility]; [facility] Work Phone: Comment on above: fasting; PATIENT WAS FASTINGPERFORMED BY: LUIS DANIEL [facility] Rrkigr0462 [facility] [id number] BY: Lab[address] [id number] Triglyceride [Mass/Vol] 63 mg/dL Normal 0-149 [facility]; [facility] Work Phone: Comment on above: fasting; PATIENT WAS FASTINGPERFORMED BY: LUIS DANIEL [facility] Typaaj2473 [facility] [id number] BY: Lab[address] [id number] LIPID PANEL (87837) 11 mg/dL Normal 5-40 [facility]; [facility] Work Phone: Comment on above: fasting; PATIENT WAS FASTINGPERFORMED BY: [facility] Ddvsoy3106 [facility] [id number] BY: [employer] [id number] LIPID PANEL (75578) 110 mg/dL Abnormal 0-99 [facility]; [facility] Work Phone: Comment on above: fasting; PATIENT WAS FASTINGPERFORMED BY: [facility] Bzisok5351 [facility] [id number] BY: Lab[address] [id number] LIPID PANEL (66054) 1.3 {ratio} Normal 0.0-3.2 [facility] Internal Medicine; [facility] Work Phone: Comment on above: LDL/HDL Ratio Men Wo men 1/2 Avg.Risk 1.0 1.5 Avg.Risk 3.6 3.2 2X Avg.Risk 6.2 5.0 3X Avg.Risk 8.0 6.1 fasting; PATIENT WAS FASTINGPERFORMED BY: [employer] [employer] Opxrlv0237 [facility] [id number] BY: [employer] [id number] METABOLIC PANEL, COMPREHENSI VE (86041)Ordered By: Rail Walker on 06-29-2022 Albumin [Mass/Vol] 4.8 g/dL Normal 3.8-4.[address] [facility] Internal Medicine; [facility] Work Phone: Comment on above: PATIENT WAS FASTINGP ERFORMED BY: [facility] Efxhwd0998 [facility] [id number] BY: [employer] [id number] Albumin/Globulin [Mass ratio] 1.8 {ratio} Normal 1.2-2.2 [facility]; [facility] Work Phone: Comment on above: PATIENT WAS FASTINGP ERFORMED BY: [facility] Igfefp3062 [facility] [id number] BY: Labco05 [address] [id number] ALP [Catalytic activity/Vol] 115 U/L Normal 44-121 [facility]; [facility] Work Phone: Comment on above: PATIENT WAS FASTINGP ERFORMED BY: LUIS DANIEL [facility] Rlamhu0834 [place] [facility] [id number] BY: Lab[address] [id number] ALT [Catalytic activity/Vol] 14 U/L Normal 0-32 [facility]; [facility] Work Phone: Comment on above: PATIENT WAS FASTINGP ERFORMED BY: LUIS DANIEL [facility] Wkavmz4969 [address] [facility] [id number] BY: [address] [id number] AST [Catalytic activity/Vol] 26 U/L Normal 0-40 [facility]; [facility] Work Phone: Comment on above: PATIENT WAS FASTINGP ERFORMED BY: [facility] Amcbvb8396 [address] [facility] [id number] BY: [address] [id number] Bilirubin [Mass/Vol] 0.4 mg/dL Normal 0.0-1.2 [facility]; [facility] Work Phone: Comment on above: PATIENT WAS FASTINGP ERFORMED BY: CB [facility] Jwqglt1910 [place] [facility] [id number] BY: [address] [id number] Calcium [Mass/Vol] 9.5 mg/dL Normal 8.7-10.3 [facility]; [facility] Work Phone: Comment on above: PATIENT WAS FASTINGP ERFORMED BY: CB [facility] Uhqiha2855 [address] [facility] [id number] BY: [address]co[address] [id number] Chloride [Moles/Vol] 101 mmol/L Normal 96-106 [facility] rehensive Internal Medicine; [facility] Work Phone: Comment on above: PATIENT WAS FASTINGP ERFORMED BY: [facility] Akeccs2221 [place] [facility] [place] [id number] BY: [address] [id number] CO2 [Moles/Vol] 24 mmol/L Normal 20-29 [facility]hen [facility]; [facility] Work Phone: Comment on above: PATIENT WAS FASTINGP ERFORMED BY: CB [facility] Xeqeiy7841 [address] [facility] [id number] BY: [address] [id number] Creatinine [Mass/Vol] 0.72 mg/dL Normal 0.57-1.00 [facility]; [facility] Work Phone: Comment on above: PATIENT WAS FASTINGP ERFORMED BY: [facility] Wuyrsu2553 [facility] [id number] BY: [address] [id number] GFR/1.73 sq M.predicted among non-blacks MDRD (S/P/Bld) [Vol rate/Area] 92 mL/min/{1.73_m2} Normal Comprehensiv e Internal Medicine; [facility] Work Phone: Comment on above: PATIENT WAS FASTINGP ERFORMED BY: CB [facility] Xfbapy3862 [facility] [id number] BY: [address] [id number] Globulin (S) [Mass/Vol] 2.7 g/dL Normal 1.5-4.5 [facility]; [facility] Work Phone: Comment on above: PATIENT WAS FASTINGP ERFORMED BY: CB [facility] Ieqbgk8768 [address] [facility] [id number] BY: [address] [id number] Glucose [Mass/Vol] 84 mg/dL Normal 70-[address] [facility] Internal Medicine; [facility] Work Phone: Comment on above: PATIENT WAS FASTINGP ERFORMED BY: LUIS DANIEL [facility] Lvztnt6105 [address] [facility] [id number] BY: [address] [id number] Potassium [Moles/Vol] 4.2 mmol/L Normal 3.5-5.2 [facility] prehensive Internal Medicine; [facility] Work Phone: Comment on above: PATIENT WAS FASTINGP ERFORMED BY: LUIS DANIEL [facility] Ndzaaq2210 [facility] [id number] BY: [address]co[address] [id number] Protein [Mass/Vol] 7.5 g/dL Normal 6.0-8.[address] [facility] Internal Medicine; [facility] Work Phone: Comment on above: PATIENT WAS FASTINGP ERFORMED BY: LUIS DANIEL [facility] Xrunqc5785 [facility] [id number] BY: [address] [id number] Sodium [Moles/Vol] 141 mmol/L Normal 134-[address] [facility] Internal Medicine; [facility] Work Phone: Comment on above: PATIENT WAS FASTINGP ERFORMED BY: LUIS DANIEL [facility] Dsdnfu3702 [facility] [id number] BY: [address] [id number] Urea nitrogen [Mass/Vol] 13 mg/dL Normal 8-27 [facility]; [facility] Work Phone: Comment on above: PATIENT WAS FASTINGP ERFORMED BY: LUIS DANIEL [facility] Wtbdss4377 [facility] [id number] BY: [employer] [address] [id number] Urea nitrogen/Creatinine [Mass ratio] 18 mg/mg Normal - [facility]; [facility] Work Phone: Comment on above: PATIENT WAS FASTINGP ERFORMED BY: Proximus70 [facility] [id number] BY: [employer] [address] [id number] TSH (THYROID STIMULATING HOR JONAH) (19158)Ordered By: Rail Walker on 06-29-2022 TSH Qn 0.545 {uIU/mL} Normal 0.450-4.500 [facility] Internal [facility]; [facility] Work Phone: Comment on above: PATIENT WAS FASTINGP ERFORMED BY: Proximus70 [facility] [id number] BY: [employer] [address] [id number] VITAMIN B12 AND FOLATES (826 07)Ordered By: Rail Walker on 06-29-2022 Cobalamin (Vitamin B12) [Mass/Vol] 1268 pg/mL Abnormal 232-1245 [facility]; [facility] Work Phone: Comment on above: PATIENT WAS FASTINGP ERFORMED BY: Proximus70 [facility] [id number] BY: Cloud[employer] [address] [id number] Folate [Mass/Vol] 14.5 ng/mL Normal Compreh ensive Internal Medicine; [facility] Work Phone: Comment on above: A serum folate jay ntration of less than 3.1 ng/mL isconsidered to represent clinical deficiency. PATIENT WAS FASTINGP ERFORMED BY: Proximus70 [facility] [id number] BY: Revenew[address] [id number] VITAMIN D, 1, 25-DIHYDROXY ( 25800)Ordered By: Rail Walker on 06-29-2022 1,25-dihydroxyvitamin D3 [Mass/Vol] 71.2 pg/mL Normal 24.8-81.5 [facility]; [facility] Work Phone: Comment on above: PATIENT WAS FASTINGP ERFORMED BY: Proximus70 [facility] hospital [id number] BY: [employer] [address] [id number] PHYLLIS (ANTINUCLEAR ANTIBODY) ( 25832)Ordered By: Rail Walker on 08-16-2020 Nuclear Ab Ql (S) Negative Normal Compreh ensive Internal Medicine; [facility] Work Phone: Comment on above: Test(s) 655183-Lfnri ic, Blood; 451036-Znzqooo, Blood; 568388-Evfpsbi, Bloodwas developed and its performance characteristics determinedby ethology. It has not been cleared or approved by the Foodand Drug Administration.PATIENT WAS FASTINGPERFORMED BY: Playblazer[address] [id number] BY: Remitly70 [facility] [id number] Nuclear Ab Ql (S) Negative Normal Compreh ensive Internal Medicine; [facility] Work Phone: Comment on above: Test(s) 446725-Cohmm ic, Blood; 551512-Jrtpaon, Blood; 285564-Azjykag, Bloodwas developed and its performance characteristics determinedby ethology. It has not been cleared or approved by the Foodand Drug Administration.PATIENT WAS FASTINGPERFORMED BY: LYYN [address] [id number] BY: Remitly70 [facility] [id number] HEAVY METAL SCREEN (40463)Or dered By: Rail Walker on 08-16-2020 Arsenic (Bld) [Mass/Vol] 5 ug/L Normal 2-23 [facility]; [facility] Work Phone: Comment on above: Detection Limit = 1 Test(s) 413677-Cklta ic, Blood; 355788-Ngbhjud, Blood; 489784-Jtknjrc, Bloodwas developed and its performance characteristics determinedby ethology. It has not been cleared or approved by the Foodand Drug Administration.PATIENT WAS FASTINGPERFORMED BY: WellApps[address] [id number] BY: [address] [id number] Cadmium (Bld) [Mass/Vol] <0.5 Normal 0.0-1.2 [facility]; [facility] Work Phone: Comment on above: Environmental Exposu re: Nonsmokers 0.3 - 1.2 Smokers 0.6 - 3.9 Occupational Exposure: OSHA Cadmium Std 5.0 PIPER 5.0 . Detection Limit = 0.5 Test(s) 612406-Virvc ic, Blood; 397313-Gyelfac, Blood; 225484-Heydlfu, Bloodwas developed and its performance characteristics determinedby ethology. It has not been cleared or approved by the Foodand Drug Administration.PATIENT WAS FASTINGPERFORMED BY: ethology [address] [id number] BY: WellApps[address] [id number] Lead (Bld) [Mass/Vol] ug/dL Normal 0-4 [facility] prehensive Internal Medicine; [facility] Work Phone: Comment on above: Testing performed by Inductively coupled plasma/Mass Spectrometry. Environmental Exposure: WHO Recommendation <20 Occupational Exposure: OSHA Lead Std 40 PIPER 30 . Detection Limit = 1 . This test was developed and its performance characteristics determined by ethology. It has not been cleared or approved by the Food and Drug Administration. Test(s) 787289-Odzbj ic, Blood; 570231-Zobuoto, Blood; 116552-Vaaudcu, Bloodwas developed and its performance characteristics determinedby ethology. It has not been cleared or approved by the Foodand Drug Administration.PATIENT WAS FASTINGPERFORMED BY: WellApps[address] [id number] BY: Lab77 [address] StreetDublin [place] [id number] Lead (Bld) [Mass/Vol] ug/dL Normal 0-4 Com prehensive Internal Medicine; [facility] Work Phone: Comment on above: Testing performed by Inductively coupled plasma/Mass Spectrometry. Environmental Exposure: WHO Recommendation <20 Occupational Exposure: OSHA Lead Std 40 PIPER 30 . Detection Limit = 1 . This test was developed and its performance characteristics determined by ethology. It has not been cleared or approved by the Food and Drug Administration. Test(s) 714107-Rhtpw ic, Blood; 565319-Ngjmmzt, Blood; 691792-Wbqmquk, Bloodwas developed and its performance characteristics determinedby ethology. It has not been cleared or approved by the Foodand Drug Administration.PATIENT WAS FASTINGPERFORMED BY: LYYN [address] [id number] BY: Spectrum Bridge6370 [facility]panelCritical access hospital [id number] Mercury (Bld) [Mass/Vol] <1.0 Normal 0.0-14.9 [facility]; [facility] Work Phone: Comment on above: Environmental Exposu re: <15.0 Occupational Exposure: PIPER - Inorganic Mercury: 15.0 . Detection Limit = 1.0 Test(s) 295462-Mjbmu ic, Blood; 314143-Ntexqzp, Blood; 582204-Hocgbjz, Bloodwas developed and its performance characteristics determinedby ethology. It has not been cleared or approved by the Foodand Drug Administration.PATIENT WAS FASTINGPERFORMED BY: ethology [address] [id number] BY: WellAppsRobert Wood Johnson University Hospital SomersetFutujh4950 [facility] [id number] HGB A1C (39029)Ordered By: Scarlett ystem Field Sales Specialist on 08-16-2020 HbA1c (Bld) [Mass fraction] 5.6 % Normal 4.8-5.6 [facility]; [facility] Work Phone: Comment on above: . Prediabetes: 5.7 - 6.4 Diabetes: >6.4 Glycemic control for adults with diabetes: <7.0 Test(s) 157938-Akmlv ic, Blood; 311894-Ymrrvqt, Blood; 554462-Rmurxrk, Bloodwas developed and its performance characteristics determinedby ethology. It has not been cleared or approved by the Foodand Drug Administration.PATIENT WAS FASTINGPERFORMED BY: LYYN [address] [id number] BY: Remitly70 [facility]panelCritical access hospital [id number] HIV-1 ANTIBODY (43888)Ordere d By: Rail Walker on 08-16-2020 HIV 1+2 Ab+HIV1 p24 Ag IA Ql Non Reactive Normal [facility]; [facility] Work Phone: Comment on above: Test(s) 688103-Jgkll ic, Blood; 493190-Gwpfswb, Blood; 685782-Mqkkrqm, Bloodwas developed and its performance characteristics determinedby ethology. It has not been cleared or approved by the Foodand Drug Administration.PATIENT WAS FASTINGPERFORMED BY: LYYN [address] [id number] BY: Remitly70 [facility]panelCritical access hospital [id number] HIV 1+2 Ab+HIV1 p24 Ag IA Ql Non-Reactive Normal [facility]; [facility] Work Phone: Comment on above: Test(s) 212569-Japdt ic, Blood; 610815-Xqxruui, Blood; 804938-Kzdqswy, Bloodwas developed and its performance characteristics determinedby ethology. It has not been cleared or approved by the Foodand Drug Administration.PATIENT WAS FASTINGPERFORMED BY: LYYN [address] [id number] BY: Remitly70 [facility]GateUNC Health Nash [id number] Serum Protein Electrophoresi s (SPEP) (04077)Ordered By: Rail Walker on 08-16-2020 Albumin [Mass/Vol] 4.0 g/dL Normal 2.9-4.4 [facility] Internal Medicine; [facility] Work Phone: Comment on above: Test(s) 858500-Pqqlq ic, Blood; 141552-Zbsweae, Blood; 605497-Ergirjr, Bloodwas developed and its performance characteristics determinedby ethology. It has not been cleared or approved by the Foodand Drug Administration.PATIENT WAS FASTINGPERFORMED BY: ethology [address] [id number] BY: Zouxiu70 [facility]panelCritical access hospital [id number] Albumin/Globulin [Mass ratio] 1.3 {ratio} Normal 0.7-1.7 [facility]; [facility] Work Phone: Comment on above: Test(s) 810925-Wocgw ic, Blood; 141696-Ixhjugd, Blood; 394162-Nvqlptx, Bloodwas developed and its performance characteristics determinedby ethology. It has not been cleared or approved by the Foodand Drug Administration.PATIENT WAS FASTINGPERFORMED BY: LYYN [address] [id number] BY: Zouxiu70 [facility]panelCritical access hospital [id number] Alpha 1 globulin Elph [Mass/Vol] 0.2 g/dL Normal 0.0-0.4 [facility]; [facility] Work Phone: Comment on above: Test(s) 563639-Jtfko ic, Blood; 071311-Qfhpeqi, Blood; 814899-Camicyh, Bloodwas developed and its performance characteristics determinedby ethology. It has not been cleared or approved by the Foodand Drug Administration.PATIENT WAS FASTINGPERFORMED BY: LYYN [address] [id number] BY: WellApps Blhyhy2919 [address] [facility]UNC [facility] Nash [id number] Alpha 2 globulin Elph [Mass/Vol] 0.7 g/dL Normal 0.4-1.0 [facility]; [facility] Work Phone: Comment on above: Test(s) 863409-Iszxq ic, Blood; 122295-Oldsajs, Blood; 966724-Cloaluq, Bloodwas developed and its performance characteristics determinedby [employer] It has not been cleared or approved by the Foodand Drug Administration.PATIENT WAS FASTINGPERFORMED BY: WellApps[address] [id number] BY: WellAppsRobert Wood Johnson University Hospital SomersetHqpehq4013 [facility] [id number] Beta globulin Elph [Mass/Vol] 1.2 g/dL Normal 0.7-1.3 [facility]; [facility] Work Phone: Comment on above: Test(s) 035151-Acqaf ic, Blood; 954420-Fquxnqm, Blood; 418743-Ubeanbo, Bloodwas developed and its performance characteristics determinedby ethology. It has not been cleared or approved by the Foodand Drug Administration.PATIENT WAS FASTINGPERFORMED BY: WellApps[address] [id number] BY: WellAppsJeff [place] 4115070 [facility] [id number] Gamma globulin Elph [Mass/Vol] 1.1 g/dL Normal 0.4-1.8 [facility]; [facility] Work Phone: Comment on above: Test(s) 913724-Badgb ic, Blood; 558100-Tyygpaa, Blood; 528522-Aldufxt, Bloodwas developed and its performance characteristics determinedby ethology. It has not been cleared or approved by the Foodand Drug Administration.PATIENT WAS FASTINGPERFORMED BY: WellApps[address] [id number] BY: WellAppsRobert Wood Johnson University Hospital SomersetUsowfk6138 [facility] [id number] Globulin (S) [Mass/Vol] 3.1 g/dL Normal 2.2-3.9 [facility]; [facility] Work Phone: Comment on above: Test(s) 551215-Tsnud ic, Blood; 332115-Tgxigfj, Blood; 008654-Sxrdoqq, Bloodwas developed and its performance characteristics determinedby [employer] It has not been cleared or approved by the Foodand Drug Administration.PATIENT WAS FASTINGPERFORMED BY: Digerati[address] [id number] BY: LabCo Cpedyi3773 [address] VivakorCritical access hospital [id number] Laboratory comment Román (Report) RUST Normal [facility]; [facility] Work Phone: Comment on above: Protein electrophore sis scan will follow via computer, mail, orcourier delivery. Test(s) 647748-Wyzuv ic, Blood; 140101-Rvvhxry, Blood; 307641-Uuqpdmy, Bloodwas developed and its performance characteristics determinedby [employer] It has not been cleared or approved by the Foodand Drug Administration.PATIENT WAS FASTINGPERFORMED BY: LYYN [address] [id number] BY: WellApp[employer] Uipcpk0980 [place] VivakorCritical access hospital [id number] Laboratory report . Normal Compreh [facility] center[facility] Internal [facility]; [facility] Work Phone: Comment on above: Test(s) 436245-Tgncb ic, Blood; 349454-Bzalrdp, Blood; 513822-Xspmbxy, Bloodwas developed and its performance characteristics determinedby ethology. It has not been cleared or approved by the Foodand Drug Administration.PATIENT WAS FASTINGPERFORMED BY: LYYN [address] [id number] BY: LabReferMe Bryfxo6844 [place] VivakorCritical access hospital [id number] Protein [Mass/Vol] 7.1 g/dL Normal 6.0-8.5 Compre [facility] Internal Medicine; [facility] Work Phone: Comment on above: Test(s) 561963-Gbckj ic, Blood; 507603-Mplfusr, Blood; 833967-Honefqy, Bloodwas developed and its performance characteristics determinedby ethology. It has not been cleared or approved by the Foodand Drug Administration.PATIENT WAS FASTINGPERFORMED BY: Digerati[address] [id number] BY: Well[employer] Lvesgw5943 [facility] [id number] Protein.monoclonal Elph [Mass/Vol] Not Observed Normal [facility]; [facility] Work Phone: Comment on above: Test(s) 589400-Smpjn ic, Blood; 523248-Ouezjmn, Blood; 041843-Elitzdj, Bloodwas developed and its performance characteristics determinedby ethology. It has not been cleared or approved by the Foodand Drug Administration.PATIENT WAS FASTINGPERFORMED BY: Playblazer[address] [id number] BY: Kuaiyonglin6370 [facility] InstituteNumberPictureCritical access hospital [id number] VITAMIN B-12 (CYANOCOBALAMIN ) (22847)Ordered By: Rail Walker on 08-16-2020 Cobalamin (Vitamin B12) [Mass/Vol] 318 pg/mL Normal 232-1245 [facility]; [facility] Work Phone: Comment on above: Test(s) 402467-Yblqd ic, Blood; 644233-Xdulfli, Blood; 592496-Xgoyjmg, Bloodwas developed and its performance characteristics determinedby ethology. It has not been cleared or approved by the Foodand Drug Administration.PATIENT WAS FASTINGPERFORMED BY: LYYN [address] [id number] BY: BagThat Edxslo1245 [facility] [id number] CALCIFEDIOL (07221)Ordered B y: Rail Walker on 08-09-2020 25-Hydroxyvitamin D2+25-Hydroxyvitamin D3 [Mass/Vol] 43.7 ng/mL Normal 30.0-100.0 [facility]; [facility] Work Phone: Comment on above: Vitamin D deficiency has been defined by the [place] ofMedicine and an Endocrine Society practice guideline as alevel of serum 25-OH vitamin D less than 20 ng/mL (1,2).The Endocrine Society went on to further define vitamin Dinsufficiency as a level between 21 and 29 ng/mL (2).1. IOM ([place] of Medicine). 2010. Dietary reference intakes for calcium and D. [place]: The National Academies Press.2. Trina MF, Toshia NC, Mony CAMPBELL, et al. Evaluation, treatment, and prevention of vitamin D deficiency: an Endocrine Society clinical practice guideline. JCEM. 2010; 96(7):1911-30. 07-17; PATIENT WAS F ASTINGPERFORMED BY: CB [facility] Irisgt8477 [address]on RoadDublin [place] [id number] Metabolic Panel, Comprehensi ve (15945)Ordered By: Rail Walker on 08-09-2020 Albumin [Mass/Vol] 4.6 g/dL Normal 3.8-4.[address] [facility] Internal Medicine; [facility] Work Phone: Comment on above: ; PATIENT WAS FASTINGPERFORMED BY: CB [facility] Gdubqa3348 [address] RoadDublin [place] [id number] Albumin/Globulin [Mass ratio] 1.8 {ratio} Normal 1.2-2.2 [facility]; [facility] Work Phone: Comment on above: ; PATIENT WAS FASTINGPERFORMED BY: CB [facility] Thwccn8490 [address] RoadDublin [place] [id number] ALP [Catalytic activity/Vol] 83 [iU]/L Normal 39-117 [facility]; [facility] Work Phone: Comment on above: ; PATIENT WAS FASTINGPERFORMED BY: CB [facility] Czyeae0303 [address] RoadDublin [place] [id number] ALP [Catalytic activity/Vol] 83 U/L Normal 39-117 [facility]; [facility] Work Phone: Comment on above: ; PATIENT WAS FASTINGPERFORMED BY: CB [facility] Rdhuzx7993 [address] RoadDublin [place] [id number] ALT [Catalytic activity/Vol] 20 [iU]/L Normal 0-32 [facility]; [facility] Work Phone: Comment on above: ; PATIENT WAS FASTINGPERFORMED BY: CB [facility] Rxkkjp8044 [address] RoadDublin [place] [id number] ALT [Catalytic activity/Vol] 20 U/L Normal 0-32 [facility]; [facility] Work Phone: Comment on above: ; PATIENT WAS FASTINGPERFORMED BY: CB [facility] Ubuqja2581 [address] RoadDublin [place] [id number] AST [Catalytic activity/Vol] 18 [iU]/L Normal 0-40 [facility]; [facility] Work Phone: Comment on above: ; PATIENT WAS FASTINGPERFORMED BY: CB [facility] Wvkmnx0297 [address] RoadDublin [place] [id number] AST [Catalytic activity/Vol] 18 U/L Normal 0-40 [facility]; [facility] Work Phone: Comment on above: ; PATIENT WAS FASTINGPERFORMED BY: CB [facility] Qqjllw5519 [address] RoadDublin [place] [id number] Bilirubin [Mass/Vol] 0.4 mg/dL Normal 0.0-1.2 Comp rehensive Internal Medicine; [facility] Work Phone: Comment on above: ; PATIENT WAS FASTINGPERFORMED BY: CB [facility] Ucavwb3595 [address] RoadDublin [place] [id number] Calcium [Mass/Vol] 9.5 mg/dL Normal 8.7-10.[address] [facility] Internal Medicine; [facility] Work Phone: Comment on above: ; PATIENT WAS FASTINGPERFORMED BY: CB [facility] Cmrocy0521 [address] RoadDublin [place] [id number] Chloride [Moles/Vol] 103 mmol/L Normal 96-106 Comp rehensive Internal Medicine; [facility] Work Phone: Comment on above: ; PATIENT WAS FASTINGPERFORMED BY: CB [facility] Licoiu5853 [address] RoadDublin [place] [id number] CO2 [Moles/Vol] 26 mmol/L Normal 20-29 [facility] Internal Medicine; [facility] Work Phone: Comment on above: ; PATIENT WAS FASTINGPERFORMED BY: CB [facility] Roqwsf6246 [address] RoadDublin [place] [id number] Creatinine [Mass/Vol] 0.68 mg/dL Normal 0.57-1.00 [facility] prehensive Internal Medicine; [facility] Work Phone: Comment on above: ; PATIENT WAS FASTINGPERFORMED BY: CB [facility] Qjfoyu1131 [address] RoadDublin [place] [id number] GFR/1.73 sq M predicted among blacks CKD-EPI (S/P/Bld) [Vol rate/Area] 107 mL/min/1.73 Normal [facility]; [facility] Work Phone: Comment on above: ; PATIENT WAS FASTINGPERFORMED BY: CB [facility] Qissur6892 [address] RoadDublin [place] [id number] GFR/1.73 sq M predicted among non-blacks CKD-EPI (S/P/Bld) [Vol rate/Area] 93 mL/min/1.73 Normal [facility]; [facility] Work Phone: Comment on above: ; PATIENT WAS FASTINGPERFORMED BY: CB [facility] Cwgdzz4343 [address] RoadDublin [place] [id number] Globulin (S) [Mass/Vol] 2.6 g/dL Normal 1.5-4.5 [facility] Internal Medicine; [facility] Work Phone: Comment on above: ; PATIENT WAS FASTINGPERFORMED BY: CB [facility] Nontzn7423 [address] RoadDublin [place] [id number] Glucose [Mass/Vol] 88 mg/dL Normal 65-[address] [facility] Internal Medicine; [facility] Work Phone: Comment on above: ; PATIENT WAS FASTINGPERFORMED BY: CB [facility] Fhsift5983 [address] RoadDublin [place] [id number] Potassium [Moles/Vol] 4.4 mmol/L Normal 3.5-5.2 [facility] Internal Medicine; [facility] Work Phone: Comment on above: ; PATIENT WAS FASTINGPERFORMED BY: CB [facility] Gaaxga0479 [address] RoadDublin [place] [id number] Protein [Mass/Vol] 7.2 g/dL Normal 6.0-8.[address] [facility] Internal Medicine; [facility] Work Phone: Comment on above: ; PATIENT WAS FASTINGPERFORMED BY: LUIS DANIEL [facility] Jcbiii0917 [address] RoadDublin [place] [id number] Sodium [Moles/Vol] 144 mmol/L Normal 134-[address] [facility] Internal Medicine; [facility] Work Phone: Comment on above: ; PATIENT WAS FASTINGPERFORMED BY: CB [facility] Fscsyx6330 [address] RoadDublin [place] [id number] Urea nitrogen [Mass/Vol] 18 mg/dL Normal 8- [facility]; [facility] Work Phone: Comment on above: ; PATIENT WAS FASTINGPERFORMED BY: LUIS DANIEL [facility] Kwqovo8108 [address] RoadDublin [place] [id number] Urea nitrogen/Creatinine [Mass ratio] 26 mg/mg Normal 12- [facility]; [facility] Work Phone: Comment on above: ; PATIENT WAS FASTINGPERFORMED BY: LUIS DANIEL [facility] Tuwggv4162 [address] RoadDublin [place] [id number] TSH ([id number])Ordered By: [place] Illuminatione m Field Sales Specialist on 08-09-2020 TSH Qn 1.420 {uIU/mL} Normal 0.450-4.500 [facility] Internal Medicine; [facility] Work Phone: Comment on above: ; PATIENT WAS FASTINGPERFORMED BY: CB [facility] Qfmxvu6804 [address] RoadDublin [place] [id number] CBC, Platelets & Auto Diff ( [id number])Ordered By: Rail Walker on 06-02-2019 Basophils (Bld) [#/Vol] 0.0 {x10E3/uL} Normal 0.0-0.2 [facility] Work Phone: Comment on above: PATIENT WAS FASTINGP ERFORMED BY: LUIS DANIEL [facility] Mznbhm9583 [address] RoadDublin [place] [id number] Basophils (Bld) [#/Vol] 0.0 10*3/uL Normal 0.0-0.2 [facility]; [facility] Work Phone: Comment on above: PATIENT WAS FASTINGP ERFORMED BY: [facility] Krtswh5127 [address] RoadDublin [place] [id number] Basophils/100 WBC (Bld) 0 % Normal [facility] Work Phone: Comment on above: PATIENT WAS FASTINGP ERFORMED BY: [facility] Jvvijn4569 [address] RoadDublin [place] [id number] Eosinophils (Bld) [#/Vol] 0.1 {x10E3/uL} Normal 0.0-0.4 [facility] Work Phone: Comment on above: PATIENT WAS FASTINGP ERFORMED BY: LabSaint [facility] CenterAhyvbc[address] [facility] [id number] Eosinophils (Bld) [#/Vol] 0.1 10*3/uL Normal 0.0-0.4 [facility]; [facility] Work Phone: Comment on above: PATIENT WAS FASTINGP ERFORMED BY: [facility] [facility]in [place] [id number] Eosinophils/100 WBC (Bld) 2 % Normal [facility] Work Phone: Comment on above: PATIENT WAS FASTINGP ERFORMED BY: LabSaint Francis [facility] CenterBqkljm[address] [facility] [id number] Erythrocyte distribution width (RBC) [Ratio] 13.8 % Normal 12.3-15.4 [facility] Work Phone: Comment on above: PATIENT WAS FASTINGP ERFORMED BY: [facility] Uxilod[address] [facility]blin [place] [id number] Hematocrit (Bld) [Volume fraction] 40.8 % Normal 34.0-46.6 [facility] Work Phone: Comment on above: PATIENT WAS FASTINGP ERFORMED BY: [facility] Jkrkny[address] [facility]in [place] [id number] Hemoglobin (Bld) [Mass/Vol] 13.6 g/dL Normal 11.1-15.9 [facility] Work Phone: Comment on above: PATIENT WAS FASTINGP ERFORMED BY: LUIS DANIEL LabAlexa Cqmefr1390 [address] RoadDublin [place] [id number] Immature granulocytes (Bld) [#/Vol] 0.0 {x10E3/uL} Normal 0.0-0.1 [facility] Work Phone: Comment on above: PATIENT WAS FASTINGP ERFORMED BY: LabSaint [facility] Medical CenterNuianf3194 [address] RoadDublin [place] [id number] Immature granulocytes (Bld) [#/Vol] 0.0 10*3/uL Normal 0.0-0.1 [facility]; [facility] Work Phone: Comment on above: PATIENT WAS FASTINGP ERFORMED BY: LUIS DANIEL [facility] Eswjpk7657 [address] RoadCarteret Health Carein [place] [id number] Immature granulocytes/100 WBC (Bld) 0 % Normal [facility] Work Phone: Comment on above: PATIENT WAS FASTINGP ERFORMED BY: LUIS DANIEL [facility] Yilycb[address] [facility]in [place] [id number] Lymphocytes (Bld) [#/Vol] 2.7 {x10E3/uL} Normal 0.7-3.1 [facility] Work Phone: Comment on above: PATIENT WAS FASTINGP ERFORMED BY: Lab[facility] [facility] Hospitalblin [place] [id number] Lymphocytes (Bld) [#/Vol] 2.7 10*3/uL Normal 0.7-3.1 [facility]; [facility] Work Phone: Comment on above: PATIENT WAS FASTINGP ERFORMED BY: [facility] Xcwydx[address] [facility] RegionDublin [place] [id number] Lymphocytes/100 WBC (Bld) 42 % Normal [facility] Work Phone: Comment on above: PATIENT WAS FASTINGP ERFORMED BY: [facility] Iauxiy[address] [facility] RegionDublin [place] [id number] MCH (RBC) [Entitic mass] 30.4 pg Normal 26.6-33.0 [facility] Work Phone: Comment on above: PATIENT WAS FASTINGP ERFORMED BY: LUIS DANIEL LabCojose RussXerrwk0054 [address] RoadDublin [place] [id number] MCHC (RBC) [Mass/Vol] 33.3 g/dL Normal 31.5-35.7 [facility] prehensive Internal Medicine Work Phone: Comment on above: PATIENT WAS FASTINGP ERFORMED BY: LUIS DANIEL [facility] [address]zuynd[address] [facility] Hospitalblin [place] [id number] MCV (RBC) [Entitic vol] 91 fL Normal 79-97 [facility] Work Phone: Comment on above: PATIENT WAS FASTINGP ERFORMED BY: LUIS DANIEL LabNova RussHxhqdr9995 [address] RoadUNC Health Nash [id number] Monocytes (Bld) [#/Vol] 0.5 {x10E3/uL} Normal 0.1-0.9 [facility] Work Phone: Comment on above: PATIENT WAS FASTINGP ERFORMED BY: LUSI DANIEL [facility] Uyttkz5565 [address] RoadDublin [place] [id number] Monocytes (Bld) [#/Vol] 0.5 10*3/uL Normal 0.1-0.9 [facility] Internal Medicine; [facility] Work Phone: Comment on above: PATIENT WAS FASTINGP ERFORMED BY: LUIS DANIEL [facility] Wyrpik9[address] RoadUNC Health Nash [id number] Monocytes/100 WBC (Bld) 8 % Normal [facility] Work Phone: Comment on above: PATIENT WAS FASTINGP ERFORMED BY: LUIS DANIEL [facility] Bzbdej4320 [address] RoadDublin [place] [id number] Neutrophils (Bld) [#/Vol] 3.0 {x10E3/uL} Normal 1.4-7.0 [facility] Work Phone: Comment on above: PATIENT WAS FASTINGP ERFORMED BY: [facility] Gmkrla3698 [address] RoadDublin [place] [id number] Neutrophils (Bld) [#/Vol] 3.0 10*3/uL Normal 1.4-7.0 [facility]; [facility] Work Phone: Comment on above: PATIENT WAS FASTINGP ERFORMED BY: LUIS DANIEL LabCojose Avufti2727 [address] RoadDublin [place] [id number] Neutrophils/100 WBC (Bld) 48 % Normal [facility] Work Phone: Comment on above: PATIENT WAS FASTINGP ERFORMED BY: CB [facility] Rovqqt0116 [address] RoadDublin [place] [id number] Platelets (Bld) [#/Vol] 364 {x10E3/uL} Normal 150-450 [facility] Work Phone: Comment on above: PATIENT WAS FASTINGP ERFORMED BY: LUIS DANIEL [facility] Vqnbxj3880 [address] RoadDublin [place] [id number] Platelets (Bld) [#/Vol] 364 10*3/uL Normal 150-450 [facility]; [facility] Work Phone: Comment on above: PATIENT WAS FASTINGP ERFORMED BY: LUIS DANIEL [facility] Kffdhc6671 [address] RoadDublin [place] [id number] RBC (Bld) [#/Vol] 4.47 {x10E6/uL} Normal 3.77-5.28 [facility] Internal Medicine Work Phone: Comment on above: PATIENT WAS FASTINGP ERFORMED BY: CB [facility] Ypzgue6547 [address] RoadDublin [place] [id number] RBC (Bld) [#/Vol] 4.47 10*6/uL Normal 3.77-5.28 [facility] Internal Medicine; [facility] Work Phone: Comment on above: PATIENT WAS FASTINGP ERFORMED BY: CB [facility] Nkhnky80[address] RoadDublin [place] [id number] WBC (Bld) [#/Vol] 6.4 {x10E3/uL} Normal 3.4-10.8 [facility] Internal Medicine Work Phone: Comment on above: PATIENT WAS FASTINGP ERFORMED BY: [facility] Zcvpjo9365 [address] RoadDublin [place] [id number] WBC (Bld) [#/Vol] 6.4 10*3/uL Normal 3.4-10.[address] [facility] Internal Medicine; [facility] Internal Medicine Work Phone: Comment on above: PATIENT WAS FASTINGP ERFORMED BY: [facility] Fkcplk5420 [address] RoadDublin [place] [id number] Metabolic Panel, Comprehensi ve ([id number])Ordered By: Rail Walker on 06-02-2019 Albumin [Mass/Vol] 4.6 g/dL Normal 3.6-4.[address] [facility] Internal Medicine Work Phone: Comment on above: PATIENT WAS FASTINGP ERFORMED BY: [facility] Iojmfu5860 [address] RoadDublin [place] [id number] Albumin/Globulin [Mass ratio] 2.1 {ratio} Normal 1.2-2.2 [facility] Work Phone: Comment on above: PATIENT WAS FASTINGP ERFORMED BY: [facility] Ovegur8501 [address] RoadDublin [place] [id number] ALP [Catalytic activity/Vol] 103 [iU]/L Normal 39-117 [facility] Work Phone: Comment on above: PATIENT WAS FASTINGP ERFORMED BY: [facility] Johfmb8338 [address] RoadDublin [place] [id number] ALP [Catalytic activity/Vol] 103 U/L Normal 39-117 [facility]; [facility] Internal Medicine Work Phone: Comment on above: PATIENT WAS FASTINGP ERFORMED BY: [facility] Mmdmhd1931 [address] RoadDublin [place] [id number] ALT [Catalytic activity/Vol] 15 [iU]/L Normal 0-32 [facility] Work Phone: Comment on above: PATIENT WAS FASTINGP ERFORMED BY: [facility] Lmhbip4202 [address] RoadDublin [place] [id number] ALT [Catalytic activity/Vol] 15 U/L Normal 0-32 [facility]; [facility] Work Phone: Comment on above: PATIENT WAS FASTINGP ERFORMED BY: LUIS DANIEL [facility] Twyqfs1044 [address] RoadDublin [place] [id number] AST [Catalytic activity/Vol] 15 [iU]/L Normal 0-40 [facility] Internal Medicine Work Phone: Comment on above: PATIENT WAS FASTINGP ERFORMED BY: LUIS DANIEL [facility] Gdkmbc1745 [address] RoadDublin [place] [id number] AST [Catalytic activity/Vol] 15 U/L Normal 0-40 [facility]; [facility] Internal Medicine Work Phone: Comment on above: PATIENT WAS FASTINGP ERFORMED BY: LUIS DANIEL [facility] Mrotqr0946 [address] RoadDublin [place] [id number] Bilirubin [Mass/Vol] 0.6 mg/dL Normal 0.0-1.2 [facility] Work Phone: Comment on above: PATIENT WAS FASTINGP ERFORMED BY: LUIS DANIEL [facility] Xvaett5642 [address] RoadDuin [place] [id number] Calcium [Mass/Vol] 9.7 mg/dL Normal 8.7-10.[address] [facility] Internal Medicine Work Phone: Comment on above: PATIENT WAS FASTINGP ERFORMED BY: LUIS DANIEL [facility] Xtfmwe9882 [address] Roadblin [place] [id number] Chloride [Moles/Vol] 105 mmol/L Normal 96-106 [facility]erens[facility] Internal Medicine Work Phone: Comment on above: PATIENT WAS FASTINGP ERFORMED BY: [facility] Ujqiri7834 [address] RoadDublin [place] [id number] CO2 [Moles/Vol] 24 mmol/L Normal 20-29 [facility] Internal Medicine Work Phone: Comment on above: PATIENT WAS FASTINGP ERFORMED BY: LUIS DANIEL [facility] Djxgee1850 [address] RoadDublin [place] [id number] Creatinine [Mass/Vol] 0.67 mg/dL Normal 0.57-1.00 [facility] Internal Medicine Work Phone: Comment on above: PATIENT WAS FASTINGP ERFORMED BY: [facility] Yehjhh4477 [address] RoadDublin [place] [id number] GFR/1.73 sq M predicted among blacks CKD-EPI (S/P/Bld) [Vol rate/Area] 108 mL/min/1.73 Normal [facility] Work Phone: Comment on above: PATIENT WAS FASTINGP ERFORMED BY: [facility] Lkxlaa2530 [address] RoadDublin [place] [id number] GFR/1.73 sq M predicted among non-blacks CKD-EPI (S/P/Bld) [Vol rate/Area] 94 mL/min/1.73 Normal [facility] Work Phone: Comment on above: PATIENT WAS FASTINGP ERFORMED BY: LabSaint Francis Medical CenterWwbcbj2455 [address] RoadCarteret Health Carein [place] [id number] Globulin (S) [Mass/Vol] 2.2 g/dL Normal 1.5-4.5 [facility] Internal Medicine Work Phone: Comment on above: PATIENT WAS FASTINGP ERFORMED BY: LabSaint Francis Medical CenterLkboqu5[address] [facility]in [place] [id number] Glucose [Mass/Vol] 83 mg/dL Normal 65-[address] [facility] Internal Medicine Work Phone: Comment on above: PATIENT WAS FASTINGP ERFORMED BY: LabCoAdvanced Care Hospital of Southern New MexicoCnjkgw5842 [address] [facility]in [place] [id number] Potassium [Moles/Vol] 4.6 mmol/L Normal 3.5-5.2 [facility]ensive Internal [facility] Work Phone: Comment on above: PATIENT WAS FASTINGP ERFORMED BY: [facility] Wtbqqo[address] [facility] Hospitalblin [place] [id number] Protein [Mass/Vol] 6.8 g/dL Normal 6.0-8.[address] [facility] Internal Medicine Work Phone: Comment on above: PATIENT WAS FASTINGP ERFORMED BY: [facility] Eeygar8565 [address] RoadDublin [place] [id number] Sodium [Moles/Vol] 146 mmol/L Abnormal 134-[address] [facility] Internal Medicine Work Phone: Comment on above: PATIENT WAS FASTINGP ERFORMED BY: LUIS DANIEL [facility] Houokh0992 [address] RoadDublin [place] [id number] Urea nitrogen [Mass/Vol] 17 mg/dL Normal 8-27 [facility] Work Phone: Comment on above: PATIENT WAS FASTINGP ERFORMED BY: LUIS DANIEL [facility] Pnwvbn5175 [address] RoadDublin [place] [id number] Urea nitrogen/Creatinine [Mass ratio] 25 mg/mg Normal 12- [facility] Work Phone: Comment on above: PATIENT WAS FASTINGP ERFORMED BY: LUIS DANIEL [facility] Xsysas8289 [address] Roadblin [place] [id number] TSH ([id number])Ordered By: Ora wiggins Field Sales Specialist on 06-02-2019 TSH Qn 1.380 {uIU/mL} Normal 0.450-4.500 [facility] Internal Medicine Work Phone: Comment on above: PATIENT WAS FASTINGP ERFORMED BY: LUIS DANIEL [facility] Bvjbym1517 [address] Roadblin [place] [id number] URINE CALCIUM HIPOLITO TIMED 24 Hour ([id number])Ordered By: Rail Walker on 01-27-2019 Calcium (24H U) [Mass/Time] 195.5 {mg/24_hr} Normal 100.0-300.0 [facility] Work Phone: Comment on above: PATIENT NOT FASTINGP ERFORMED BY: LUIS DANIEL [facility] Wcdhun[address] [facility]in [place] [id number] Information: START 01/27/19@630AM Calcium (24H U) [Mass/Vol] 23.0 mg/dL Normal [facility] Work Phone: Comment on above: PATIENT NOT FASTINGP ERFORMED BY: [facility] Lovtuj[address] [facility] Hospitalblin [place] [id number] Information: START 01/27/19@630AM CALCIFEDIOL ([id number])Ordered B y: Rail Walker on 01-26-2019 25-Hydroxyvitamin D2+25-Hydroxyvitamin D3 [Mass/Vol] 56.4 ng/mL Normal 30.0-100.0 [facility] Work Phone: Comment on above: Vitamin D deficiency has been defined by the [place] ofMedicine and an Endocrine Society practice guideline as alevel of serum 25-OH vitamin D less than 20 ng/mL (1,2).The Endocrine Society went on to further define vitamin Dinsufficiency as a level between 21 and 29 ng/mL (2).1. IOM ([place] of Medicine). 2010. Dietary reference intakes for calcium and D. [place]: The National Academies Press.2. Trina MF, Toshia SOUZA, Mony CAMPBELL, et al. Evaluation, treatment, and prevention of vitamin D deficiency: an Endocrine Society clinical practice guideline. JCEM. 2010; 96(7):1911-30. PATIENT NOT FASTINGP ERFORMED BY: CB [facility] Bnbclb6807 [address] RoadDublin [place] [id number] Metabolic Panel, Willii jeannette ([id number])Ordered By: Rail Walker on 01-26-2019 Albumin [Mass/Vol] 4.6 g/dL Normal 3.6-4.[address] [facility] Internal Medicine Work Phone: Comment on above: PATIENT NOT FASTINGP ERFORMED BY: CB [facility] Amiqpa3387 [address] RoadDublin [place] [id number] Albumin/Globulin [Mass ratio] 1.8 {ratio} Normal 1.2-2.2 [facility] Work Phone: Comment on above: PATIENT NOT FASTINGP ERFORMED BY: CB [facility] Ebglqu8721 [address] RoadDublin [place] [id number] ALP [Catalytic activity/Vol] 95 [iU]/L Normal 39-117 [facility] Work Phone: Comment on above: PATIENT NOT FASTINGP ERFORMED BY: CB [facility] Rikewy6042 [address] RoadDublin [place] [id number] ALP [Catalytic activity/Vol] 95 U/L Normal 39-117 [facility]; [facility] Work Phone: Comment on above: PATIENT NOT FASTINGP ERFORMED BY: CB [facility] Kiuozs4489 [address] RoadDublin [place] [id number] ALT [Catalytic activity/Vol] 13 [iU]/L Normal 0-32 [facility] Work Phone: Comment on above: PATIENT NOT FASTINGP ERFORMED BY: CB [facility] Zmrxfy8063 [address] RoadDublin [place] [id number] ALT [Catalytic activity/Vol] 13 U/L Normal 0-32 [facility]; [facility] Work Phone: Comment on above: PATIENT NOT FASTINGP ERFORMED BY: CB [facility] Sslazv5288 [address] RoadDublin [place] [id number] AST [Catalytic activity/Vol] 15 [iU]/L Normal 0-40 [facility] Work Phone: Comment on above: PATIENT NOT FASTINGP ERFORMED BY: CB [facility] Cstfoy5244 [address] RoadDublin [place] [id number] AST [Catalytic activity/Vol] 15 U/L Normal 0-40 [facility]; [facility] Work Phone: Comment on above: PATIENT NOT FASTINGP ERFORMED BY: CB [facility] Hmsigw4368 [address] RoadDublin [place] [id number] Bilirubin [Mass/Vol] 0.5 mg/dL Normal 0.0-1.2 Comp [facility]ensive Internal [facility] Work Phone: Comment on above: PATIENT NOT FASTINGP ERFORMED BY: CB [facility] Evxgrk1057 [address] RoadDublin [place] [id number] Calcium [Mass/Vol] 9.6 mg/dL Normal 8.7-10.[address] [facility] Internal Medicine Work Phone: Comment on above: PATIENT NOT FASTINGP ERFORMED BY: CB [facility] Lwcpeb8757 [address] RoadDublin [place] [id number] Chloride [Moles/Vol] 102 mmol/L Normal 96-106 Comp [facility]ensive Internal Medicine Work Phone: Comment on above: PATIENT NOT FASTINGP ERFORMED BY: CB [facility] Wydino0730 [address] RoadDublin [place] [id number] CO2 [Moles/Vol] 25 mmol/L Normal 20-29 Comprehen [facility] Internal Medicine Work Phone: Comment on above: PATIENT NOT FASTINGP ERFORMED BY: CB [facility] Cyhswd1021 [address] RoadDublin [place] [id number] Creatinine [Mass/Vol] 0.66 mg/dL Normal 0.57-1.00 [facility] Internal Medicine Work Phone: Comment on above: PATIENT NOT FASTINGP ERFORMED BY: CB [facility] Psgdyb8198 [address] RoadDublin [place] [id number] GFR/1.73 sq M predicted among blacks CKD-EPI (S/P/Bld) [Vol rate/Area] 109 mL/min/1.73 Normal [facility] Work Phone: Comment on above: PATIENT NOT FASTINGP ERFORMED BY: CB [facility] Cffyrm5746 [address] RoadDublin [place] [id number] GFR/1.73 sq M predicted among non-blacks CKD-EPI (S/P/Bld) [Vol rate/Area] 95 mL/min/1.73 Normal [facility] Internal Medicine Work Phone: Comment on above: PATIENT NOT FASTINGP ERFORMED BY: CB [facility] Dxrojt2780 [address] RoadDublin [place] [id number] Globulin (S) [Mass/Vol] 2.5 g/dL Normal 1.5-4.5 [facility] Internal Medicine Work Phone: Comment on above: PATIENT NOT FASTINGP ERFORMED BY: CB [facility] Jwttzx6604 [address] RoadDublin [place] [id number] Glucose [Mass/Vol] 82 mg/dL Normal 65-[address] [facility] Internal Medicine Work Phone: Comment on above: PATIENT NOT FASTINGP ERFORMED BY: CB [facility] Vnydco2153 [address] RoadDublin [place] [id number] Potassium [Moles/Vol] 4.1 mmol/L Normal 3.5-5.2 [facility] Internal Medicine Work Phone: Comment on above: PATIENT NOT FASTINGP ERFORMED BY: CB [facility] Jwbkbj1947 [address] RoadDublin [place] [id number] Protein [Mass/Vol] 7.1 g/dL Normal 6.0-8.[address] [facility] Internal Medicine Work Phone: Comment on above: PATIENT NOT FASTINGP ERFORMED BY: LUIS DANIEL LabNova RussBxrmva[address] [facility]in [place] [id number] Sodium [Moles/Vol] 145 mmol/L Abnormal 134-[address] [facility] Internal Medicine Work Phone: Comment on above: PATIENT NOT FASTINGP ERFORMED BY: LUIS DANIEL [facility] Qgfawo[address] [facility] [id number] Urea nitrogen [Mass/Vol] 11 mg/dL Normal 8-27 [facility] Work Phone: Comment on above: PATIENT NOT FASTINGP ERFORMED BY: LUIS DANIEL Russlin[address] [facility] [id number] Urea nitrogen/Creatinine [Mass ratio] 17 mg/mg Normal 12-28 [facility] Work Phone: Comment on above: PATIENT NOT FASTINGP ERFORMED BY: LUIS DANIEL LabAlexa Wfepcl[address] [facility]in [place] [id number] PHOSPHORUS ([id number])Ordered By : Rail Walker on 01-26-2019 Phosphate [Mass/Vol] 4.0 mg/dL Normal 2.5-4.5 [facility] Internal Medicine Work Phone: Comment on above: PATIENT NOT FASTINGP ERFORMED BY: [facility] Wytwps[address] [facility]in [place] [id number] SED RATE ERYTHROCYTE ([id number]) Ordered By: Rail Walker on 01-26-2019 ESR (Bld) [Velocity] 4 mm/h Normal 0-40 [facility] Work Phone: Comment on above: PATIENT NOT FASTINGP ERFORMED BY: [facility] Fznzst[address] [facility]bl[facility] [place] [id number] SPEP ([id number])Ordered By: Syst em Field Sales Specialist on 01-26-2019 Albumin [Mass/Vol] 4.3 g/dL Normal 2.9-4.[address] [facility] Internal Medicine Work Phone: Comment on above: PATIENT NOT FASTINGP ERFORMED BY: CB [facility] Etkdmk9566 Magallon RoadCarteret Health Carein [place] [id number] Albumin/Globulin [Mass ratio] 1.5 {ratio} Normal 0.7-1.7 [facility] Work Phone: Comment on above: PATIENT NOT FASTINGP ERFORMED BY: CB [facility] Bfccop6321 Magallon RoadCarteret Health Carein [place] [id number] Alpha 1 globulin Elph [Mass/Vol] 0.1 g/dL Normal 0.0-0.4 [facility] Work Phone: Comment on above: PATIENT NOT FASTINGP ERFORMED BY: CB [facility] Xvzcgf5121 [address]on RoadCarteret Health Carein [place] [id number] Alpha 2 globulin Elph [Mass/Vol] 0.6 g/dL Normal 0.4-1.0 [facility] Work Phone: Comment on above: PATIENT NOT FASTINGP ERFORMED BY: CB [facility] [id number] [address] [facility] [id number] Beta globulin Elph [Mass/Vol] 1.1 g/dL Normal 0.7-1.3 [facility] Work Phone: Comment on above: PATIENT NOT FASTINGP ERFORMED BY: CB [facility] Nulify2020 [address] [facility] [place] [id number] Gamma globulin Elph [Mass/Vol] 1.0 g/dL Normal 0.4-1.8 [facility] Work Phone: Comment on above: PATIENT NOT FASTINGP ERFORMED BY: CB [facility] Glmckl4366 [address] [facility] [place] [id number] Globulin (S) [Mass/Vol] 2.8 g/dL Normal 2.2-3.9 [facility] Work Phone: Comment on above: PATIENT NOT FASTINGP ERFORMED BY: CB [facility] Y[address]agr[address] [facility] [place] [id number] Laboratory comment Román (Report) SPRCS Normal [facility] Work Phone: Comment on above: Protein electrophore sis scan will follow via computer, mail, orcourier delivery. PATIENT NOT FASTINGP ERFORMED BY: LUIS DANIEL [facility] Lhzuor7299 Mag[address]on RoadDublin [place] [id number] Laboratory report . Normal Compreh ensive Internal Medicine Work Phone: Comment on above: PATIENT NOT FASTINGP ERFORMED BY: LUIS DANIEL [facility] Hwfwff[address] [facility] [place] [id number] Protein.monoclonal Elph [Mass/Vol] Not Observed Normal [facility] Work Phone: Comment on above: PATIENT NOT FASTINGP ERFORMED BY: LUIS DANIEL [facility] Qxbylg1635 [address] [facility] [place] [id number] UPEP ([id number])Ordered By: Syst em Field Sales Specialist on 01-26-2019 Albumin Elph (U) [Mass fraction] 30.5 % Normal [facility] Work Phone: Comment on above: PATIENT NOT FASTINGP ERFORMED BY: LUIS DANIEL [facility] Wraqdc0436 [address] [facility] [id number] Alpha 1 globulin Elph (U) [Mass fraction] 1.9 % Normal Comprehensiv e Internal Medicine Work Phone: Comment on above: PATIENT NOT FASTINGP ERFORMED BY: [facility] Venwhf7715 [address] [facility] [id number] Alpha 2 globulin Elph (U) [Mass fraction] 15.6 % Normal Comprehensiv e [facility] Work Phone: Comment on above: PATIENT NOT FASTINGP ERFORMED BY: [facility] Dsgqts3686 [address] RoadCarteret Health Carein [place] [id number] Beta globulin Elph (U) [Mass fraction] 32.0 % Normal Comprehensiv e [facility] Work Phone: Comment on above: PATIENT NOT FASTINGP ERFORMED BY: [facility] Sshqjy9066 [address] [facility] [id number] Gamma globulin Elph (U) [Mass fraction] 20.0 % Normal Comprehensiv e [facility] Work Phone: Comment on above: PATIENT NOT FASTINGP ERFORMED BY: [facility] Gdezxe2902 [facility] [id number] Protein (U) [Mass/Vol] 19.5 mg/dL Normal [facility] Work Phone: Comment on above: PATIENT NOT FASTINGP ERFORMED BY: [facility] Hkohex5974 [facility] [id number] Protein.monoclonal Elph (U) [Mass fraction] Not Observed Normal [facility] Work Phone: Comment on above: PATIENT NOT FASTINGP ERFORMED BY: [facility] Adhwic6964 [facility] [id number] PARATHORMONE ([id number])Ordered By: Rail Walker on 10-29-2018 Parathyrin.intact [Mass/Vol] 34 pg/mL Normal 15-65 [facility] Work Phone: Comment on above: PATIENT NOT FASTINGP ERFORMED BY: [facility] MexicoJrchct4655 [facility] [id number] Basic Metabolic Profile (BMP )Ordered By: Rail Walker on 10-22-2018 Basic metabolic 2000 panel 109 mL/min Normal [facility] Work Phone: Comment on above: GFR Calc [facility] [address] [place], [address] Basic metabolic 2000 panel 90 mL/min Normal [facility] Work Phone: Comment on above: Non- GFR Calc [facility] [address] [place], [place], [address] Basic metabolic 2000 panel 0.70 mg/dL Normal 0.55-1.02 [facility] Work Phone: Comment on above: The validity of the calculated GFR AND GFRAA in patients over70 years has not been determined. Clinical correlation isessential. [facility] [address] [place], [place], [address] Basic metabolic 2000 panel 22 mg/dL Abnormal 7-18 [facility] Work Phone: Comment on above: [facility] [address] [place], [place], [address] Basic metabolic 2000 panel 104 mg/dL Normal 74-106 [facility] Work Phone: Comment on above: Fasting Glucose resu lt from 100 to 125 mg/dLsuggests IMPAIRED HOMEOSTASIS per A.D.A. criteria.Please note revised GLUCOSE reference range [id number]/02/2018. [facility] [address] [place], [place], [address] Basic metabolic 2000 panel 29.0 mmol/L Normal 21.0-32.0 [facility] Work Phone: Comment on above: [facility] [address] [place], [place], [address] Basic metabolic 2000 panel 9 1 Normal 5-15 [facility] Work Phone: Comment on above: [facility] [address] [place], [address] Basic metabolic 2000 panel 106 mmol/L Normal 98-107 [facility] Work Phone: Comment on above: [facility] [address] [place], [place], [address] Basic metabolic 2000 panel 3.5 mmol/L Normal 3.5-5.1 [facility] Work Phone: Comment on above: [facility] [address] [place], [address] Basic metabolic 2000 panel 144 mmol/L Normal 136-145 [facility] Work Phone: Comment on above: [facility] [address] [place], [place], [address] Basic metabolic 2000 panel 9.1 mg/dL Normal 8.5-10.1 [facility] Work Phone: Comment on above: [facility] [address] [place], [place], [address] Basic metabolic 2000 panel 31.3 {RATIO} Abnormal 10-20 [facility] Work Phone: Comment on above: [facility] [address] [place], [place], [address] Basic metabolic 2000 panel 74.98 ml/min Normal [facility] Work Phone: Comment on above: [facility] [address] [place], [place], [address] CBC W/Diff, AutomatedOrdered By: Rail Walker on 10-22-2018 Absolute Neut 3.5 {X10_3/uL} Normal 2.0-7.7 Compreh ensive Internal Medicine Work Phone: Comment on above: [facility] [address] [place], [place], [address] Basophils/100 WBC (Bld) 0.1 % Normal 0-1 [facility] Work Phone: Comment on above: [facility] [address] [place], [place], [address] Eosinophils/100 WBC (Bld) 1.4 % Normal 0-5 [facility] Work Phone: Comment on above: [facility] [address] [place], [place], [address] Erythrocyte distribution width Ratio (RBC) 12.9 % Normal 11.6-14.6 [facility] Work Phone: Comment on above: [facility] [address] [place], [place], [address] Hematocrit Volume Fraction (Bld) 42.4 % Normal 37-47 [facility] Work Phone: Comment on above: [facility] [address] [place], [place], [address] Hemoglobin mass conc (Bld) 14.0 g/dL Normal 12.0-15.0 [facility] Work Phone: Comment on above: [facility] [address] [place], [address] IM GRAN % 0.100 % Normal 0.0-0.9 [facility] Work Phone: Comment on above: IG% - Immature Granu locytes (promyelocytes, myelocytes andmetamyelocytes) > 1% indicates that a LEFT SHIFT is Present. [facility] [address] [place], [place], [phone] Lymphocytes #/vol (Bld) 3.11 {X10_3/ul} Normal 0.83-4.51 [facility] Work Phone: Comment on above: [facility] [address] [place], [address] Lymphocytes/100 WBC (Bld) 42.2 % Abnormal 19-41 [facility] Work Phone: Comment on above: [facility] [address] [place], [address] MCH Entitic mass (RBC) 30.2 pg Normal 27.0-32.0 [facility] Work Phone: Comment on above: [facility] [address] [place], [address] MCHC mass conc (RBC) 33.0 {g/gl} Normal 32-36 Com prehensive Internal Medicine Work Phone: Comment on above: [facility] [address] [place], [address] MCV Entitic volume (RBC) 91.6 fL Normal 81-99 [facility] Work Phone: Comment on above: [facility] [address] [place], [address] Monocytes/100 WBC (Bld) 8.8 % Normal 0-10 [facility] Work Phone: Comment on above: [facility] [address] [place], [address] Neutrophils/100 WBC (Bld) 47.4 % Normal 47-70 [facility] Work Phone: Comment on above: [facility] [address] [place], [address] Platelet mean volume Entitic volume (Bld) 9.8 fL Normal 6.2-12.0 Comprehensi ve Internal Medicine Work Phone: Comment on above: [facility] [address] [place], [place], [address] Platelets #/vol (Bld) 357 10*3/uL Normal 150-450 Co mprehensive [facility] Work Phone: Comment on above: [facility] [address] [place], [place], [address] RBC #/vol (Bld) 4.63 {M/mm3} Normal 4.2-5.4 Compreh ensive Internal Medicine Work Phone: Comment on above: [facility] [address] [place], [place], [address] RDW SD 42.5 fL Normal 35.1-43.9 [facility] Work Phone: Comment on above: [facility] [address] [place], [address] WBC #/vol (Bld) 7.4 10*3/uL Normal 4.4-11.0 Comprehe nsive Internal Medicine Work Phone: Comment on above: [facility] [address] [place], [address] Troponin-IOrdered By: Rail Walker on 10-22-2018 Troponin I.cardiac mass conc ng/mL Normal [facility] Work Phone: Comment on above: TROPONIN-I EXPECTED VALUES <0.045 Negative 0.045 - 0.590 Consistent with Cardiac Damage > OR = 0.600 Critical Value Not every elevated troponin is indicative of TN. Thesevalues should be used with clinical judgement in examiningthe patient's clinical picture for diagnosis. To establisha diagnosis of TN versus myocardial injury, there must be ademonstrated rise and/or fall in the troponin values, inaddition to ischemic symptoms, EKG changes, new regionalwall motion abnormality, and/or angiographical evidence. PLEASE NOTE: REFERENCE RANGES EDITED 17 [facility] [address] [place], [place], [phone] CBC W/Diff, AutomatedOrdered By: Rail Walker on 09-24-2018 Absolute Neut 3.8 {X10_3/uL} Normal 2.0-7.7 Compreh ensive Internal Medicine Work Phone: Comment on above: [facility] [address] [place], [place], [phone] Basophils/100 WBC (Bld) 0.3 % Normal 0-1 [facility] Work Phone: Comment on above: [facility] [address] [place], [place], [phone] Eosinophils/100 WBC (Bld) 1.7 % Normal 0-5 [facility] Work Phone: Comment on above: [facility] [address] [place], [place], [phone] Erythrocyte distribution width Ratio (RBC) 13.5 % Normal 11.6-14.6 [facility] Work Phone: Comment on above: [facility] [address] [place], [place], [address] Hematocrit Volume Fraction (Bld) 45.7 % Normal 37-47 [facility] Work Phone: Comment on above: [facility] [address] [place], [place], [address] Hemoglobin mass conc (Bld) 14.6 g/dL Normal 12.0-15.0 [facility] Work Phone: Comment on above: [facility] [address] [place], [address] IM GRAN % 0.300 % Normal 0.0-0.9 [facility] Work Phone: Comment on above: IG% - Immature Granu locytes (promyelocytes, myelocytes andmetamyelocytes) > 1% indicates that a LEFT SHIFT is Present. [facility] [address] [place], [address] Lymphocytes #/vol (Bld) 2.21 {X10_3/ul} Normal 0.83-4.51 [facility] Work Phone: Comment on above: [facility] [address] [place], [address] Lymphocytes/100 WBC (Bld) 33.3 % Normal 19-41 [facility] Work Phone: Comment on above: [facility] [address] [place], [address] MCH Entitic mass (RBC) 29.3 pg Normal 27.0-32.0 [facility] Work Phone: Comment on above: [facility] [address] [place], [address] MCHC mass conc (RBC) 31.9 {g/gl} Abnormal 32-36 Com prehensive Internal Medicine Work Phone: Comment on above: [facility] [address] [place], [address] MCV Entitic volume (RBC) 91.8 fL Normal 81-99 [facility] Work Phone: Comment on above: [facility] [address] [place], [address] Monocytes/100 WBC (Bld) 7.1 % Normal 0-10 [facility] Work Phone: Comment on above: [facility] [address] [place], [address] Neutrophils/100 WBC (Bld) 57.3 % Normal 47-70 [facility] Work Phone: Comment on above: [facility] [address] [place], [address] Platelet mean volume Entitic volume (Bld) 10.7 fL Normal 6.2-12.0 Comprehensi ve Internal Medicine Work Phone: Comment on above: [facility] [address] [place], [address] Platelets #/vol (Bld) 371 10*3/uL Normal 150-450 Co mprehensive [facility] Work Phone: Comment on above: [facility] [address] [place], [address] RBC #/vol (Bld) 4.98 {M/mm3} Normal 4.2-5.4 Compreh ensive Internal Medicine Work Phone: Comment on above: [facility] [address] [place], [address] RDW SD 44.6 fL Abnormal 35.1-43.9 [facility] Work Phone: Comment on above: [facility] [address] [place], [address] WBC #/vol (Bld) 6.6 10*3/uL Normal 4.4-11.0 Comprehe nsive Internal Medicine Work Phone: Comment on above: [facility] [address] [place], [address] CCP IgG AntibodiesOrdered By : Rail Walker on 09-24-2018 Cyclic citrullinated peptide IgG Qn 9 {units} Normal 0-19 [facility] Work Phone: Comment on above: Negative <20 Weak po sitive 20 - 39 Moderate positive 40 - 59 Strong positive >59Performed at: - [facility] [address] [place] [id number] Director: Zan Vasquez MD, Phone: [phone] [facility] (refer to re port for specific site)refer to report for address and phone number CRPOrdered By: System Manage r on 09-24-2018 CRP High sensitivity method mass conc mg/L Normal 0.0-3.0 [facility] Work Phone: Comment on above: C-Reactive Protein ( CRP) provides useful information for thediagnosis, therapy and monitoring of inflammatory processesand associated diseases. For the evaluation of Relative Riskfor Cardiovascular Disease, a High Sensitivity CRP (HSCRP)should be ordered. [facility] [address] [place], [place], [phone] Comprehensive Metabolic Prof ilOrdered By: Rail Walker on 09-24-2018 Comprehensive metabolic 2000 panel 0.66 mg/dL Normal 0.55-1.02 Comprehensi ve Internal Medicine Work Phone: Comment on above: The validity of the calculated GFR AND GFRAA in patients over70 years has not been determined. Clinical correlation isessential. [facility] [address] [place], [place], [address] Comprehensive metabolic 2000 panel 96 mL/min Normal Comprehensi ve Internal Medicine Work Phone: Comment on above: Non- GFR Calc [facility] [address] [place], [place], [address] Comprehensive metabolic 2000 panel 116 mL/min Normal Comprehensi ve Internal Medicine Work Phone: Comment on above: GFR Calc [facility] [address] [place], [place], [address] Comprehensive metabolic 2000 panel 25.6 {RATIO} Abnormal 10-20 Comprehensi ve Internal Medicine Work Phone: Comment on above: [facility] [address] [place], [place], [address] Comprehensive metabolic 2000 panel 10 1 Normal 5-15 Comprehensi ve Internal Medicine Work Phone: Comment on above: [facility] [address] [place], [place], [address] Comprehensive metabolic 2000 panel 27.0 mmol/L Normal 21.0-32.0 Comprehensi ve Internal Medicine Work Phone: Comment on above: [facility] [address] [place], [place], [address] Comprehensive metabolic 2000 panel 7.6 g/dL Normal 6.4-8.2 Comprehensi ve Internal Medicine Work Phone: Comment on above: [facility] [address] [place], [place], [address] Comprehensive metabolic 2000 panel 4.3 g/dL Normal 3.2-5.0 Comprehensi ve Internal Medicine Work Phone: Comment on above: [facility] [address] [place], [place], [address] Comprehensive metabolic 2000 panel 3.3 g/dL Normal 2.2-4.2 Comprehensi ve Internal Medicine Work Phone: Comment on above: [facility] [address] [place], [place], [address] Comprehensive metabolic 2000 panel 0.70 mg/dL Normal 0.20-1.00 Comprehensi ve Internal Medicine Work Phone: Comment on above: [facility] [address] [place], [place], [address] Comprehensive metabolic 2000 panel 77 mg/dL Normal 74-106 Comprehensi ve Internal Medicine Work Phone: Comment on above: Please note revised GLUCOSE reference range loehaswzc95/02/2018. [facility] [address] [place], [place], [address] Comprehensive metabolic 2000 panel 17 mg/dL Normal 7-18 Comprehensi ve Internal Medicine Work Phone: Comment on above: [facility] [address] [place], [address] Comprehensive metabolic 2000 panel 1.3 {RATIO} Normal 0.9-2.4 Comprehensi ve Internal Medicine Work Phone: Comment on above: [facility] [address] [place], [address] Comprehensive metabolic 2000 panel 106 mmol/L Normal 98-107 Comprehensi ve Internal Medicine Work Phone: Comment on above: [facility] [address] [place], [address] Comprehensive metabolic 2000 panel 4.0 mmol/L Normal 3.5-5.1 Comprehensi ve Internal Medicine Work Phone: Comment on above: [facility] [address] [place], [place], [address] Comprehensive metabolic 2000 panel 143 mmol/L Normal 136-145 Comprehensi ve Internal Medicine Work Phone: Comment on above: [facility] [address] [place], [address] Comprehensive metabolic 2000 panel 36 U/L Normal 13-56 Comprehensi ve Internal Medicine Work Phone: Comment on above: [facility] [address] [place], [address] Comprehensive metabolic 2000 panel 9.1 mg/dL Normal 8.5-10.1 Comprehensi ve Internal Medicine Work Phone: Comment on above: [facility] [address] [place], [address] Comprehensive metabolic 2000 panel 112 U/L Normal 45-117 Comprehensi ve Internal Medicine Work Phone: Comment on above: [facility] [address] [place], [address] Comprehensive metabolic 2000 panel 24 U/L Normal 15-37 Comprehensi ve Internal Medicine Work Phone: Comment on above: [facility] [address] [place], [place], [address] Erythrocyte Sed RateOrdered By: Rail Walker on 09-24-2018 Erythrocyte Sed Rate 5 mm/h Normal 0-30 Comp [facility] Work Phone: Comment on above: [facility] [address] [place], [place], [address] Lipid ProfileOrdered By: Sys tem Field Sales Specialist on 09-24-2018 Cholesterol in HDL mass conc 104 mg/dL Normal [facility] Work Phone: Comment on above: The drugs N-Acetylcy steine and Metamizole may falselydepress this assay. Reference Range HDL <40 mg/dL Low HDL Cholesterol HDL >or= 60 mg/dL High HDL Cholesterol [facility] [address] [place], [place], [address] Cholesterol in LDL mass conc 113 mg/dL Normal 0-130 [facility] Work Phone: Comment on above: [facility] [address] [place], [place], [address] Cholesterol in VLDL mass conc 12 mg/dL Normal 5-40 [facility] Work Phone: Comment on above: [facility] [address] [place], [place], [address] Cholesterol mass conc 229 mg/dL Abnormal Com prehensive Internal Medicine Work Phone: Comment on above: <200 mg/dL Desirable 200-240 mg/dL Borderline >240 mg/dL High Risk [facility] [address] [place], [place], [address] Triglyceride mass conc 61 mg/dL Normal [facility] Work Phone: Comment on above: The drugs N-Acetylcy steine and Metamizole may falselydepress this assay.Serum Triglycerides Reference Interval Normal <150 mg/dL Borderline high 150 - 199 mg/dL High 200 - 499 mg/dL Very High > or = 500 mg/dL [facility] [address] [place], [address] Rheumatoid FactorOrdered By: Rail Walker on 09-24-2018 Rheumatoid factor Qn [IU]/mL Normal Comp [facility] Work Phone: Comment on above: [facility] [address] [place], [address] Thyroid Stim Hormone (TSH)Or dered By: Rail Walker on 09-24-2018 Thyrotropin Qn 2.23 {uIU/mL} Normal 0.358-3.[address] [facility] Work Phone: Comment on above: [facility] [address] [place], [address] Vitamin D,25 HydroxyOrdered By: Rail Walker on 09-24-2018 Vitamin D,25 Hydroxy 12.2 ng/mL Abnormal 29.95-100.01 Co [facility] Work Phone: Comment on above: Vitamin D 25(OH) Sta tus Range Deficiency <20 ng/mL (50nmol/L) Insufficiency 20 - 30 ng/mL (50 - 75 nmol/L) Sufficiency 30 - 100 ng/mL (75 - 250 nmol/L) Toxicity >100 ng/mL (>250 nmol/L) [facility] [address] [place] [place], [id number] CBC, Platelets & Auto Diff ( [id number])Ordered By: Rail Walker on 07-05-2017 Basophils #/vol (Bld) 0.0 {x10E3/uL} Normal 0.0-0.2 [facility] Work Phone: Comment on above: PATIENT NOT FASTINGP ERFORMED BY: LUIS DANIEL [facility] Ssumcq8519 Secpanelin [place] [id number] Basophils (Bld) [#/Vol] 0.0 10*3/uL Normal 0.0-0.2 [facility]; [facility] Work Phone: Comment on above: PATIENT NOT FASTINGP ERFORMED BY: CB [facility] Qlzvjs5651 [address] RoadDublin [place] [id number] Basophils/100 WBC (Bld) 0 % Normal [facility] Work Phone: Comment on above: PATIENT NOT FASTINGP ERFORMED BY: LUIS DANIEL [facility] Brkzyi2761 [address] RoadDublin [place] [id number] Eosinophils #/vol (Bld) 0.1 {x10E3/uL} Normal 0.0-0.4 [facility] Work Phone: Comment on above: PATIENT NOT FASTINGP ERFORMED BY: CB [facility] Qgoxzt1521 [address] RoadCarteret Health Carein [place] [id number] Eosinophils (Bld) [#/Vol] 0.1 10*3/uL Normal 0.0-0.4 [facility]; [facility] Work Phone: Comment on above: PATIENT NOT FASTINGP ERFORMED BY: [facility] Bkfsby[address] [facility] [id number] Eosinophils/100 WBC (Bld) 1 % Normal [facility] Work Phone: Comment on above: PATIENT NOT FASTINGP ERFORMED BY: [facility] Vfktea2495 [address] [facility] [place] [id number] Erythrocyte distribution width Ratio (RBC) 14.1 % Normal 12.3-15.4 [facility] Work Phone: Comment on above: PATIENT NOT FASTINGP ERFORMED BY: [facility] Hnitjo5475 [address] [facility] [place] [id number] Hematocrit Volume Fraction (Bld) 43.4 % Normal 34.0-46.6 [facility] Work Phone: Comment on above: PATIENT NOT FASTINGP ERFORMED BY: CB [facility] Ehzlno[address] [facility]bl[facility] [place] [id number] Hemoglobin mass conc (Bld) 14.7 g/dL Normal 11.1-15.9 [facility] Work Phone: Comment on above: Please note refere nce interval change PATIENT NOT FASTINGP ERFORMED BY: CB [facility] Uikmvq5768 [address] RoadDublin [place] [id number] Immature granulocytes #/vol (Bld) 0.0 {x10E3/uL} Normal 0.0-0.1 [facility] Work Phone: Comment on above: PATIENT NOT FASTINGP ERFORMED BY: LUIS DANIEL [facility] Eputts9784 [address] RoadDublin [place] [id number] Immature granulocytes (Bld) [#/Vol] 0.0 10*3/uL Normal 0.0-0.1 [facility]; [facility] Work Phone: Comment on above: PATIENT NOT FASTINGP ERFORMED BY: LUIS DANIEL [facility] Ymharj2855 [address] RoadDublin [place] [id number] Immature granulocytes/100 WBC (Bld) 0 % Normal [facility] Work Phone: Comment on above: PATIENT NOT FASTINGP ERFORMED BY: LUIS DANIEL [facility] Tyiswh5752 [address] RoadDublin [place] [id number] Lymphocytes #/vol (Bld) 2.3 {x10E3/uL} Normal 0.7-3.1 [facility] Work Phone: Comment on above: PATIENT NOT FASTINGP ERFORMED BY: LUIS DANIEL [facility] Edmcbn1489 [address] RoadDublin [place] [id number] Lymphocytes (Bld) [#/Vol] 2.3 10*3/uL Normal 0.7-3.1 [facility]; [facility] Work Phone: Comment on above: PATIENT NOT FASTINGP ERFORMED BY: LUIS DANIEL [facility] Lnjvyv7063 [address] RoadDublin [place] [id number] Lymphocytes/100 WBC (Bld) 41 % Normal [facility] Work Phone: Comment on above: PATIENT NOT FASTINGP ERFORMED BY: LUIS DANIEL [facility] Rwvhle9935 [address] RoadDublin [place] [id number] MCH Entitic mass (RBC) 30.8 pg Normal 26.6-33.0 [facility] Work Phone: Comment on above: PATIENT NOT FASTINGP ERFORMED BY: LUIS DANIEL [facility] Cvnpgx7817 [address] RoadDublin [place] [id number] MCHC mass conc (RBC) 33.9 g/dL Normal 31.5-35.7 Comp [facility] Internal Medicine Work Phone: Comment on above: PATIENT NOT FASTINGP ERFORMED BY: CB [facility] Ofqhjj5271 [address] Roadblin [place] [id number] MCV Entitic volume (RBC) 91 fL Normal 79-97 [facility] Work Phone: Comment on above: PATIENT NOT FASTINGP ERFORMED BY: CB [facility] Dexejr0302 [address] RoadDublin [place] [id number] Monocytes #/vol (Bld) 0.3 {x10E3/uL} Normal 0.1-0.9 [facility] Work Phone: Comment on above: PATIENT NOT FASTINGP ERFORMED BY: CB [facility] Cwsmoi8965 [address] RoadDublin [place] [id number] Monocytes (Bld) [#/Vol] 0.3 10*3/uL Normal 0.1-0.9 [facility]; [facility] Work Phone: Comment on above: PATIENT NOT FASTINGP ERFORMED BY: CB [facility] Hsxixe6924 [address] RoadCarteret Health Carein [place] [id number] Monocytes/100 WBC (Bld) 5 % Normal [facility] Work Phone: Comment on above: PATIENT NOT FASTINGP ERFORMED BY: CB [facility] Lnlnol7209 [address] RoadCarteret Health Carein [place] [id number] Neutrophils #/vol (Bld) 2.9 {x10E3/uL} Normal 1.4-7.0 [facility] Work Phone: Comment on above: PATIENT NOT FASTINGP ERFORMED BY: CB [facility] Bitaoi8585 [address] RoadDublin [place] [id number] Neutrophils (Bld) [#/Vol] 2.9 10*3/uL Normal 1.4-7.0 [facility]; [facility] Work Phone: Comment on above: PATIENT NOT FASTINGP ERFORMED BY: CB [facility] Fouyrr6985 [address] RoadDublin [place] [id number] Neutrophils/100 WBC (Bld) 53 % Normal [facility] Work Phone: Comment on above: PATIENT NOT FASTINGP ERFORMED BY: LUIS DANIEL Estrella6370 [address] RoadDublin [place] [id number] Platelets #/vol (Bld) 401 {x10E3/uL} Abnormal 150-379 [facility] Work Phone: Comment on above: PATIENT NOT FASTINGP ERFORMED BY: LUIS DANIEL Estrella6370 [address] Roadblin [place] [id number] Platelets (Bld) [#/Vol] 401 10*3/uL Abnormal 150-379 [facility]; [facility] Work Phone: Comment on above: PATIENT NOT FASTINGP ERFORMED BY: LUIS DANIEL Estrella6370 [address] RoadCarteret Health Carein [place] [id number] RBC #/vol (Bld) 4.78 {x10E6/uL} Normal 3.77-5.28 [facility] Work Phone: Comment on above: PATIENT NOT FASTINGP ERFORMED BY: LUIS DANIEL Estrella6370 [address] RoadCarteret Health Carein [place] [id number] RBC (Bld) [#/Vol] 4.78 10*6/uL Normal 3.77-5.28 Compr ensive [facility] Medicine; [facility] Work Phone: Comment on above: PATIENT NOT FASTINGP ERFORMED BY: LUIS DANIEL Estrella[address] [facility] [place] [id number] WBC #/vol (Bld) 5.5 {x10E3/uL} Normal 3.4-10.8 Compr ensive Internal Medicine Work Phone: Comment on above: PATIENT NOT FASTINGP ERFORMED BY: LUIS DANIEL Estrella[address] [facility] RegionDublin [place] [id number] WBC (Bld) [#/Vol] 5.5 10*3/uL Normal 3.4-10.8 Compre [facility] Internal Medicine; [facility] Work Phone: Comment on above: PATIENT NOT FASTINGP ERFORMED BY: LUIS DANIEL Estrella6[address] RoadDublin [place] [id number] Metabolic Panel, Comprehensi ve (07669)Ordered By: Rail Walker on 07-05-2017 Albumin mass conc 4.8 g/dL Normal 3.6-4.8 Compreh [facility] Internal Medicine Work Phone: Comment on above: PATIENT NOT FASTINGP ERFORMED BY: CB [facility] Ztpmkh9895 [address] RoadDublin [place] [id number] Albumin/Globulin mass ratio 1.8 {ratio} Normal 1.2-2.2 [facility] Work Phone: Comment on above: PATIENT NOT FASTINGP ERFORMED BY: CB [facility] Smrwsu2718 [address] RoadDublin [place] [id number] ALP [Catalytic activity/Vol] 91 U/L Normal 39-117 [facility]; [facility] Work Phone: Comment on above: PATIENT NOT FASTINGP ERFORMED BY: CB [facility] Oxfqlp4248 [address] RoadDublin [place] [id number] ALP enzyme act/vol 91 [iU]/L Normal 39-117 [facility] Work Phone: Comment on above: PATIENT NOT FASTINGP ERFORMED BY: CB [facility] Eekdwi1310 [address] RoadDublin [place] [id number] ALT [Catalytic activity/Vol] 14 U/L Normal 0-32 [facility]; [facility] Work Phone: Comment on above: PATIENT NOT FASTINGP ERFORMED BY: CB [facility] Jquijl5496 [address] RoadDublin [place] [id number] ALT enzyme act/vol 14 [iU]/L Normal 0-32 [facility] Internal Medicine Work Phone: Comment on above: PATIENT NOT FASTINGP ERFORMED BY: CB [facility] Pkmyjf2268 [address] RoadDublin [place] [id number] AST [Catalytic activity/Vol] 21 U/L Normal 0-40 [facility]; [facility] Work Phone: Comment on above: PATIENT NOT FASTINGP ERFORMED BY: CB [facility] Aotaxg9105 [address] RoadDublin [place] [id number] AST enzyme act/vol 21 [iU]/L Normal 0-40 Compre [facility]ive Internal [facility] Work Phone: Comment on above: PATIENT NOT FASTINGP ERFORMED BY: LUIS DANIEL LabNova RussAorlnq2835 [address] RoadDublin [place] [id number] Bilirubin mass conc 0.5 mg/dL Normal 0.0-1.2 Compr ensive Internal Medicine Work Phone: Comment on above: PATIENT NOT FASTINGP ERFORMED BY: LUIS DANIEL [facility] Vrzuyl2390 [address] RoadDublin [place] [id number] Calcium mass conc 9.7 mg/dL Normal 8.7-10.3 Compreh ensive Internal Medicine Work Phone: Comment on above: PATIENT NOT FASTINGP ERFORMED BY: LUIS DANIEL LabNova RussKryqgk2175 [address] RoadCarteret Health Carein [place] [id number] Chloride molar conc 100 mmol/L Normal 96-106 Compr ensive Internal Medicine Work Phone: Comment on above: PATIENT NOT FASTINGP ERFORMED BY: LUIS DANIEL LabCojose RussYetiwt9291 [address] Roadblin [place] [id number] CO2 molar conc 27 mmol/L Normal 18-29 Comprehens arlyn Internal Medicine Work Phone: Comment on above: PATIENT NOT FASTINGP ERFORMED BY: LUIS DANIEL LabNova RussXrmcdt5640 [address] RoadCarteret Health Carein [place] [id number] Creatinine mass conc 0.79 mg/dL Normal 0.57-1.00 Comp [facility] Work Phone: Comment on above: PATIENT NOT FASTINGP ERFORMED BY: LUIS DANIEL [facility] Sijsto9292 [address] RoadDublin [place] [id number] GFR/1.73 sq M predicted among blacks CKD-EPI vol rate/area (S/P/Bld) 93 mL/min/1.73 Normal Comprehensiv e Internal Medicine Work Phone: Comment on above: PATIENT NOT FASTINGP ERFORMED BY: LUIS DANIEL [facility] Lemnhx1240 [address] RoadDublin [place] [id number] GFR/1.73 sq M predicted among non-blacks CKD-EPI vol rate/area (S/P/Bld) 81 mL/min/1.73 Normal [facility] Work Phone: Comment on above: PATIENT NOT FASTINGP ERFORMED BY: CB [facility] Jojpnd8961 [address] RoadDublin [place] [id number] Globulin mass conc (S) 2.6 g/dL Normal 1.5-4.5 [facility] Work Phone: Comment on above: PATIENT NOT FASTINGP ERFORMED BY: CB [facility] Aamkyl5519 [address] RoadDublin [place] [id number] Glucose mass conc 77 mg/dL Normal 65-99 Compreh ensive Internal Medicine Work Phone: Comment on above: PATIENT NOT FASTINGP ERFORMED BY: CB [facility] Gzixro0002 [address] RoadDublin [place] [id number] Potassium molar conc 4.4 mmol/L Normal 3.5-5.2 Comp rehensive Internal Medicine Work Phone: Comment on above: PATIENT NOT FASTINGP ERFORMED BY: CB [facility] Awexys8336 [address] RoadDublin [place] [id number] Protein mass conc 7.4 g/dL Normal 6.0-8.5 Compreh ensive Internal Medicine Work Phone: Comment on above: PATIENT NOT FASTINGP ERFORMED BY: CB [facility] Bivndp0599 [address] RoadDublin [place] [id number] Sodium molar conc 143 mmol/L Normal 134-144 Compreh ensive Internal Medicine Work Phone: Comment on above: PATIENT NOT FASTINGP ERFORMED BY: CB [facility] Eyfduj6322 [address] RoadDublin [place] [id number] Urea nitrogen mass conc 15 mg/dL Normal 8-27 [facility] Work Phone: Comment on above: PATIENT NOT FASTINGP ERFORMED BY: CB [facility] Dzwssd6650 [address] RoadDublin [place] [id number] Urea nitrogen/Creatinine mass ratio 19 mg/mg Normal 12-28 [facility] Work Phone: Comment on above: PATIENT NOT FASTINGP ERFORMED BY: LUIS DANIEL [facility] Purznd7716 [address] RoadDublin [place] [id number] T3, FREE (TRIDOTHYRONINE) (5 4034)Ordered By: Rail Walker on 07-05-2017 T3 free mass conc 3.0 pg/mL Normal 2.0-4.4 Compreh ensive Internal Medicine Work Phone: Comment on above: PATIENT NOT FASTINGP ERFORMED BY: CB [facility] Laugjr1869 [address] RoadDublin [place] [id number] T4, FREE (THYROXINE) ([id number]) Ordered By: Rail Walker on 07-05-2017 T4 free mass conc 1.30 ng/dL Normal 0.82-1.77 Compreh ensive [facility] Medicine Work Phone: Comment on above: PATIENT NOT FASTINGP ERFORMED BY: LUIS DANIEL [facility] Tgdoii9428 [address] RoadDublin [place] [id number] TSH (THYROID STIMULATING HOR JONAH) (44886)Ordered By: Rail Walker on 07-05-2017 Thyrotropin Qn 2.160 {uIU/mL} Normal 0.450-4.500 Compr ehensive Internal Medicine Work Phone: Comment on above: PATIENT NOT FASTINGP ERFORMED BY: LUIS DANIEL LabAlexarp Acnjrf4529 [address] RoadDublin [place] [id number] T3, FREE (TRIDOTHYRONINE) (8 4028)Ordered By: Rail Walker on 04-05-2016 T3 free mass conc 3.1 pg/mL Normal 2.0-4.4 Compreh ensive Internal Medicine Work Phone: Comment on above: PATIENT NOT FASTINGP ERFORMED BY: CB [facility] Fceqlh9990 [address] RoadDublin [place] [id number] T4, FREE (THYROXINE) (07238) Ordered By: Rail Walker on 04-05-2016 T4 free mass conc 1.18 ng/dL Normal 0.82-1.77 Compreh ensive Internal Medicine Work Phone: Comment on above: PATIENT NOT FASTINGP ERFORMED BY: CB [facility] Cxwvoa3927 [address] RoadDublin [place] [id number] TSH ([id number])Ordered By: Ora m Field Sales Specialist on 04-05-2016 Thyrotropin Qn 2.080 {uIU/mL} Normal 0.450-4.500 [facility] Internal Medicine Work Phone: Comment on above: PATIENT NOT FASTINGP ERFORMED BY: [facility]6370 [facility] [id number] CBC with auto diff ([id number])Or dered By: Rail Walker on 05-05-2015 Basophils #/vol (Bld) 0.0 {x10E3/uL} Normal 0.0-0.2 [facility] Work Phone: Comment on above: PATIENT NOT FASTINGP ERFORMED BY: [facility]6370 [facility] [id number] Information: [id number] Basophils (Bld) [#/Vol] 0.0 10*3/uL Normal 0.0-0.2 [facility]; [facility] Work Phone: Comment on above: PATIENT NOT FASTINGP ERFORMED BY: [facility]6370 [facility] [id number] Information: [id number] Basophils/100 WBC (Bld) 0 % Normal [facility] Work Phone: Comment on above: PATIENT NOT FASTINGP ERFORMED BY: [facility]6370 [facility] [id number] Information: [id number] Eosinophils #/vol (Bld) 0.1 {x10E3/uL} Normal 0.0-0.4 [facility] Work Phone: Comment on above: PATIENT NOT FASTINGP ERFORMED BY: [facility]6370 [facility] [id number] Information: [id number] Eosinophils (Bld) [#/Vol] 0.1 10*3/uL Normal 0.0-0.4 [facility]; [facility] Work Phone: Comment on above: PATIENT NOT FASTINGP ERFORMED BY: LUIS DANIEL [facility]University [facility]6370 [facility] [id number] Information: [id number] Eosinophils/100 WBC (Bld) 2 % Normal [facility] Work Phone: Comment on above: PATIENT NOT FASTINGP ERFORMED BY: [address] [id number] Information: [id number] Erythrocyte distribution width Ratio (RBC) 14.0 % Normal 12.3-15.4 [facility] Work Phone: Comment on above: PATIENT NOT FASTINGP ERFORMED BY: LUIS DANIEL [address] [id number] Information: [id number] Hematocrit Volume Fraction (Bld) 40.0 % Normal 34.0-46.6 [facility] Work Phone: Comment on above: PATIENT NOT FASTINGP ERFORMED BY: Catalina[address] [id number] Information: [id number] Hemoglobin mass conc (Bld) 13.6 g/dL Normal 11.1-15.9 [facility] Work Phone: Comment on above: PATIENT NOT FASTINGP ERFORMED BY: [address] [id number] Information: [id number] Immature granulocytes #/vol (Bld) 0.0 {x10E3/uL} Normal 0.0-0.1 [facility] Work Phone: Comment on above: PATIENT NOT FASTINGP ERFORMED BY: Lab[address] [id number] Information: [id number] Immature granulocytes (Bld) [#/Vol] 0.0 10*3/uL Normal 0.0-0.1 [facility]; [facility] Work Phone: Comment on above: PATIENT NOT FASTINGP ERFORMED BY: LUIS DANIEL LabCojose Wkfyvb3853 [address] [facility] [id number] Information: [id number] Immature granulocytes/100 WBC (Bld) 0 % Normal [facility] Work Phone: Comment on above: PATIENT NOT FASTINGP ERFORMED BY: [facility] Yspxfh1746 [facility] [id number] Information: [id number] Lymphocytes #/vol (Bld) 2.8 {x10E3/uL} Normal 0.7-3.1 [facility] Work Phone: Comment on above: PATIENT NOT FASTINGP ERFORMED BY: LUIS DANIEL [facility] Vjfcce7492 [facility] [id number] Information: [id number] Lymphocytes (Bld) [#/Vol] 2.8 10*3/uL Normal 0.7-3.1 [facility]; [facility] Work Phone: Comment on above: PATIENT NOT FASTINGP ERFORMED BY: LUIS DANIEL CatalinaCo Lauvvf5501 [facility] [id number] Information: [id number] Lymphocytes/100 WBC (Bld) 35 % Normal [facility] Work Phone: Comment on above: PATIENT NOT FASTINGP ERFORMED BY: LUIS DANIEL LabCoRobert [facility] SomersetBrnpsv5015 [facility] [id number] Information: [id number] MCH Entitic mass (RBC) 30.3 pg Normal 26.6-33.0 [facility] Work Phone: Comment on above: PATIENT NOT FASTINGP ERFORMED BY: LUIS DANIEL [facility] Fzdzji9970 [facility] [id number] Information: [id number] MCHC mass conc (RBC) 34.0 g/dL Normal 31.5-35.7 Comp [facility] Internal Medicine Work Phone: Comment on above: PATIENT NOT FASTINGP ERFORMED BY: LabUniversity [facility]6370 [facility] [id number] Information: [id number] MCV Entitic volume (RBC) 89 fL Normal 79-97 [facility] Work Phone: Comment on above: PATIENT NOT FASTINGP ERFORMED BY: LUIS DANIEL Quintana Tqjios7343 [facility] [id number] Information: [id number] Monocytes #/vol (Bld) 0.7 {x10E3/uL} Normal 0.1-0.9 [facility] Work Phone: Comment on above: PATIENT NOT FASTINGP ERFORMED BY: [address] [id number] Information: [id number] Monocytes (Bld) [#/Vol] 0.7 10*3/uL Normal 0.1-0.9 [facility]; [facility] Work Phone: Comment on above: PATIENT NOT FASTINGP ERFORMED BY: [place] 1487870 [facility] [id number] Information: [id number] Monocytes/100 WBC (Bld) 8 % Normal [facility] Work Phone: Comment on above: PATIENT NOT FASTINGP ERFORMED BY: LUIS DANIEL [address] [id number] Information: [id number] Neutrophils #/vol (Bld) 4.4 {x10E3/uL} Normal 1.4-7.0 [facility] Work Phone: Comment on above: PATIENT NOT FASTINGP ERFORMED BY: [address] [id number] Information: [id number] Neutrophils (Bld) [#/Vol] 4.4 10*3/uL Normal 1.4-7.0 [facility]; [facility] Work Phone: Comment on above: PATIENT NOT FASTINGP ERFORMED BY: LUIS DANIEL Estrella6370 [facility] [id number] Information: [id number] Neutrophils/100 WBC (Bld) 55 % Normal [facility] Work Phone: Comment on above: PATIENT NOT FASTINGP ERFORMED BY: LUIS DANIEL Vang [facility] [id number] Information: [id number] Platelets #/vol (Bld) 337 {x10E3/uL} Normal 150-379 [facility] Work Phone: Comment on above: PATIENT NOT FASTINGP ERFORMED BY: LUIS DANIEL Russlin6370 [facility] [id number] Information: [id number] Platelets (Bld) [#/Vol] 337 10*3/uL Normal 150-379 [facility]; [facility] Work Phone: Comment on above: PATIENT NOT FASTINGP ERFORMED BY: LUIS DANIEL Schuler70 [facility] [id number] Information: [id number] RBC #/vol (Bld) 4.49 {x10E6/uL} Normal 3.77-5.28 Comp [facility] Work Phone: Comment on above: PATIENT NOT FASTINGP ERFORMED BY: LUIS DANIEL Russlin6370 [facility] [id number] Information: [id number] RBC (Bld) [#/Vol] 4.49 10*6/uL Normal 3.77-5.28 Compr ensive Internal Medicine; [facility] Work Phone: Comment on above: PATIENT NOT FASTINGP ERFORMED BY: LUIS DANIEL Russlin6370 [facility] [id number] Information: [id number] WBC #/vol (Bld) 8.1 {x10E3/uL} Normal 3.4-10.8 Compr ensive Internal Medicine Work Phone: Comment on above: PATIENT NOT FASTINGP ERFORMED BY: LabCo Mwbvhl9[address] [facility] [id number] Information: [id number] WBC (Bld) [#/Vol] 8.1 10*3/uL Normal 3.4-10.8 Compre hensive Internal Medicine; [facility] Work Phone: Comment on above: PATIENT NOT FASTINGP ERFORMED BY: LabUniversity [facility]6[address] [facility] [id number] Information: [id number] PHYLLIS (ANTINUCLEAR ANTIBODY) ( 31354)Ordered By: Rail Walker on 02-28-2015 Nuclear Ab Ql (S) Negative Normal Compreh ensive Internal Medicine Work Phone: Comment on above: PATIENT WAS FASTINGP ERFORMED BY: LUIS DANIEL LabUniversity [facility]6370 [facility] [id number] Nuclear Ab Ql (S) Negative Normal Compreh ensive Internal Medicine; [facility] Work Phone: Comment on above: PATIENT WAS FASTINGP ERFORMED BY: LabUniversity [facility]6370 [facility] [id number] C-REACTIVE PROTEIN ([id number])Or dered By: Rail Walker on 02-28-2015 CRP mass conc 0.4 mg/L Normal 0.0-4.9 Comprehensi ve Internal Medicine Work Phone: Comment on above: PATIENT WAS FASTINGP ERFORMED BY: LabCo Ngmavt2686 [facility] [id number] CBC with auto diff ([id number])Or dered By: Rail Walker on 02-28-2015 Basophils #/vol (Bld) 0.0 {x10E3/uL} Normal 0.0-0.2 [facility] Work Phone: Comment on above: PATIENT WAS FASTINGP ERFORMED BY: Lab[facility] Vtqidj4869 [facility] [id number] Information: [id number] Basophils (Bld) [#/Vol] 0.0 10*3/uL Normal 0.0-0.2 [facility]; [facility] Work Phone: Comment on above: PATIENT WAS FASTINGP ERFORMED BY: LUIS DANIEL Vang [facility] [id number] Information: [id number] Basophils/100 WBC (Bld) 0 % Normal [facility] Work Phone: Comment on above: PATIENT WAS FASTINGP ERFORMED BY: LUIS DANIEL Quintana Osyzka[address] [id number] Information: [id number] Eosinophils #/vol (Bld) 0.1 {x10E3/uL} Normal 0.0-0.4 [facility] Work Phone: Comment on above: PATIENT WAS FASTINGP ERFORMED BY: LUIS DANIEL Quintana Yccgkt[address] [id number] Information: [id number] Eosinophils (Bld) [#/Vol] 0.1 10*3/uL Normal 0.0-0.4 [facility]; [facility] Work Phone: Comment on above: PATIENT WAS FASTINGP ERFORMED BY: LUIS DANIEL Russlin6370 [facility] [id number] Information: [id number] Eosinophils/100 WBC (Bld) 1 % Normal [facility] Work Phone: Comment on above: PATIENT WAS FASTINGP ERFORMED BY: LUIS DANIEL [facility] Syoxjr[address] [id number] Information: [id number] Erythrocyte distribution width Ratio (RBC) 14.2 % Normal 12.3-15.4 [facility] Work Phone: Comment on above: PATIENT WAS FASTINGP ERFORMED BY: LUIS DANIEL Quintana [id number] [id number] Information: [id number] Hematocrit Volume Fraction (Bld) 43.5 % Normal 34.0-46.6 [facility] Work Phone: Comment on above: PATIENT WAS FASTINGP ERFORMED BY: LUIS DANIEL [place] [id number] [facility] [id number] Information: [id number] Hemoglobin mass conc (Bld) 14.6 g/dL Normal 11.1-15.9 [facility] Work Phone: Comment on above: PATIENT WAS FASTINGP ERFORMED BY: [address] [id number] Information: [id number] Immature granulocytes #/vol (Bld) 0.0 {x10E3/uL} Normal 0.0-0.1 [facility] Work Phone: Comment on above: PATIENT WAS FASTINGP ERFORMED BY: [address] [id number] Information: [id number] Immature granulocytes (Bld) [#/Vol] 0.0 10*3/uL Normal 0.0-0.1 [facility]; [facility] Work Phone: Comment on above: PATIENT WAS FASTINGP ERFORMED BY: [address] [id number] Information: [id number] Immature granulocytes/100 WBC (Bld) 0 % Normal [facility] Work Phone: Comment on above: PATIENT WAS FASTINGP ERFORMED BY: [address] [id number] Information: [id number] Lymphocytes #/vol (Bld) 2.8 {x10E3/uL} Normal 0.7-3.1 [facility] Work Phone: Comment on above: PATIENT WAS FASTINGP ERFORMED BY: [place] 1487870 [facility] [id number] Information: [id number] Lymphocytes (Bld) [#/Vol] 2.8 10*3/uL Normal 0.7-3.1 [facility]; [facility] Work Phone: Comment on above: PATIENT WAS FASTINGP ERFORMED BY: [facility]6370 [facility] [id number] Information: [id number] Lymphocytes/100 WBC (Bld) 34 % Normal [facility] Work Phone: Comment on above: PATIENT WAS FASTINGP ERFORMED BY: [address] [id number] Information: [id number] MCH Entitic mass (RBC) 30.1 pg Normal 26.6-33.0 [facility] Work Phone: Comment on above: PATIENT WAS FASTINGP ERFORMED BY: LUIS DANIEL [address] [id number] Information: [id number] MCHC mass conc (RBC) 33.6 g/dL Normal 31.5-35.7 [facility] Internal Medicine Work Phone: Comment on above: PATIENT WAS FASTINGP ERFORMED BY: [address] [id number] Information: [id number] MCV Entitic volume (RBC) 90 fL Normal 79-97 [facility] Work Phone: Comment on above: PATIENT WAS FASTINGP ERFORMED BY: [address] [id number] Information: [id number] Monocytes #/vol (Bld) 0.6 {x10E3/uL} Normal 0.1-0.9 [facility] Work Phone: Comment on above: PATIENT WAS FASTINGP ERFORMED BY: [facility]6370 [facility] [id number] Information: [id number] Monocytes (Bld) [#/Vol] 0.6 10*3/uL Normal 0.1-0.9 [facility]; [facility] Work Phone: Comment on above: PATIENT WAS FASTINGP ERFORMED BY: LUIS DANIEL [place] Aigxgl2475 [facility] [id number] Information: [id number] Monocytes/100 WBC (Bld) 8 % Normal [facility] Work Phone: Comment on above: PATIENT WAS FASTINGP ERFORMED BY: LUIS DANIEL [facility] Qncrzb9361 [facility] [id number] Information: [id number] Neutrophils #/vol (Bld) 4.7 {x10E3/uL} Normal 1.4-7.0 [facility] Work Phone: Comment on above: PATIENT WAS FASTINGP ERFORMED BY: LUIS DANIEL [place] Oolzph5701 [facility] [id number] Information: [id number] Neutrophils (Bld) [#/Vol] 4.7 10*3/uL Normal 1.4-7.0 [facility]; [facility] Work Phone: Comment on above: PATIENT WAS FASTINGP ERFORMED BY: LUIS DANIEL [facility] Uuasmc2427 [facility] [id number] Information: [id number] Neutrophils/100 WBC (Bld) 57 % Normal [facility] Work Phone: Comment on above: PATIENT WAS FASTINGP ERFORMED BY: [facility]CoRobert [facility] SomersetQtdeft0787 [facility] [id number] Information: [id number] Platelets #/vol (Bld) 382 {x10E3/uL} Abnormal 150-379 [facility] Work Phone: Comment on above: PATIENT WAS FASTINGP ERFORMED BY: LUIS DANIEL [facility] Rvbasw1039 [facility] [id number] Information: [id number] Platelets (Bld) [#/Vol] 382 10*3/uL Abnormal 150-379 [facility]; [facility] Work Phone: Comment on above: PATIENT WAS FASTINGP ERFORMED BY: [facility] Mfiqvv3208 [facility] [id number] Information: [id number] RBC #/vol (Bld) 4.85 {x10E6/uL} Normal 3.77-5.28 [facility] Work Phone: Comment on above: PATIENT WAS FASTINGP ERFORMED BY: [place] 1487870 [facility] [id number] Information: [id number] RBC (Bld) [#/Vol] 4.85 10*6/uL Normal 3.77-5.28 Com[facility] Internal Medicine; [facility] Work Phone: Comment on above: PATIENT WAS FASTINGP ERFORMED BY: [place] 1487870 [facility] [id number] Information: [id number] WBC #/vol (Bld) 8.2 {x10E3/uL} Normal 3.4-10.8 [facility] Internal Medicine Work Phone: Comment on above: PATIENT WAS FASTINGP ERFORMED BY: [facility]6370 [facility] [id number] Information: [id number] WBC (Bld) [#/Vol] 8.2 10*3/uL Normal 3.4-10.8 [facility]; [facility] Work Phone: Comment on above: PATIENT WAS FASTINGP ERFORMED BY: [place] 1487870 [facility] [id number] Information: [id number] LIPID PANEL ([id number])Ordered B y: Rail Walker on 02-28-2015 Cholesterol in HDL mass conc 100 mg/dL Normal [facility] Work Phone: Comment on above: According to ATP-III Guidelines, HDL-C >59 mg/dL is considered anegative risk factor for CHD. PATIENT WAS FASTINGP ERFORMED BY: [place] 1487870 [facility] [id number] Cholesterol in LDL mass conc 110 mg/dL Abnormal 0-99 [facility] Work Phone: Comment on above: PATIENT WAS FASTINGP ERFORMED BY: LUIS DANIEL Russlin6370 [facility] [id number] Cholesterol in LDL/Cholesterol in HDL mass ratio 1.1 {ratio_units} Normal 0.0-3.2 [facility] Work Phone: Comment on above: LDL/HDL Ratio Men Wo men 1/2 Avg.Risk 1.0 1.5 Avg.Risk 3.6 3.2 2X Avg.Risk 6.2 5.0 3X Avg.Risk 8.0 6.1 PATIENT WAS FASTINGP ERFORMED BY: LUIS DANIEL Russlin6370 [facility] [id number] Cholesterol in VLDL mass conc 12 mg/dL Normal 5-40 [facility] Work Phone: Comment on above: PATIENT WAS FASTINGP ERFORMED BY: LUIS DANIEL Russlin6370 [facility] [id number] Cholesterol mass conc 222 mg/dL Abnormal 100-199 Com prehensive Internal Medicine Work Phone: Comment on above: PATIENT WAS FASTINGP ERFORMED BY: LUIS DANIEL Russlin6370 [facility] [id number] Triglyceride mass conc 58 mg/dL Normal 0-149 [facility] Work Phone: Comment on above: PATIENT WAS FASTINGP ERFORMED BY: LUIS DANIEL Russlin6370 [facility] [id number] METABOLIC PANEL, COMPREHENSI VE ([id number])Ordered By: Rail Walker on 02-28-2015 Albumin mass conc 5.0 g/dL Normal 3.5-5.5 Compreh ensive Internal Medicine Work Phone: Comment on above: PATIENT WAS FASTINGP ERFORMED BY: LUIS DANIEL Russlin6370 [facility] [id number] Albumin/Globulin mass ratio 2.3 {ratio} Normal 1.1-2.5 [facility] Work Phone: Comment on above: PATIENT WAS FASTINGP ERFORMED BY: LUIS DANIEL [facility] Gfkdwp9100 [address] RoadDublin [place] [id number] ALP [Catalytic activity/Vol] 100 U/L Normal 39-117 [facility]; [facility] Internal Medicine Work Phone: Comment on above: PATIENT WAS FASTINGP ERFORMED BY: LUIS DANIEL [facility] Jholvw1976 [address] RoadDublin [place] [id number] ALP enzyme act/vol 100 [iU]/L Normal 39-[address] [facility] Internal Medicine Work Phone: Comment on above: PATIENT WAS FASTINGP ERFORMED BY: LUIS DANIEL [facility] Kmcldm3668 [address] RoadDublin [place] [id number] ALT [Catalytic activity/Vol] 12 U/L Normal 0-32 [facility] Internal Medicine; [facility] Internal Medicine Work Phone: Comment on above: PATIENT WAS FASTINGP ERFORMED BY: LUIS DANIEL [facility] Ltsuhg0119 [address] RoadDublin [place] [id number] ALT enzyme act/vol 12 [iU]/L Normal 0-[address] [facility] Internal Medicine Work Phone: Comment on above: PATIENT WAS FASTINGP ERFORMED BY: LUIS DANIEL [facility] Toftgk8150 [address] RoadDublin [place] [id number] AST [Catalytic activity/Vol] 17 U/L Normal 0-40 [facility] Internal Medicine; [facility] Internal Medicine Work Phone: Comment on above: PATIENT WAS FASTINGP ERFORMED BY: LUIS DANIEL [facility] Psghtt9519 [address] RoadDublin [place] [id number] AST enzyme act/vol 17 [iU]/L Normal 0-[address] [facility] Internal Medicine Work Phone: Comment on above: PATIENT WAS FASTINGP ERFORMED BY: LUIS DANIEL [facility] Ljbsqr0937 [address] RoadDublin [place] [id number] Bilirubin mass conc 0.7 mg/dL Normal 0.0-1.2 [facility] Internal Medicine Work Phone: Comment on above: PATIENT WAS FASTINGP ERFORMED BY: LUIS DANIEL [facility] Vicizw0808 [address] RoadDublin [place] [id number] Calcium mass conc 9.8 mg/dL Normal 8.7-10.2 Compreh ensive Internal Medicine Work Phone: Comment on above: PATIENT WAS FASTINGP ERFORMED BY: LUIS DANIEL LabCojose RussOhbdag[address] [facility]bl[facility] [place] [id number] Chloride molar conc 99 mmol/L Normal 97-108 Compr ehensive Internal Medicine Work Phone: Comment on above: PATIENT WAS FASTINGP ERFORMED BY: LUIS DANIEL [facility] Pussri[address] [facility] [id number] CO2 molar conc 26 mmol/L Normal 18-29 Comprehens arlyn Internal Medicine Work Phone: Comment on above: PATIENT WAS FASTINGP ERFORMED BY: LUIS DANIEL [facility] Ngmscm7347 [facility] [id number] Creatinine mass conc 0.62 mg/dL Normal 0.57-1.00 Comp rehensive Internal Medicine Work Phone: Comment on above: PATIENT WAS FASTINGP ERFORMED BY: LUIS DANIEL [facility] Qbiugp[address] [facility] [id number] GFR/1.73 sq M predicted among blacks CKD-EPI vol rate/area (S/P/Bld) 115 mL/min/1.73 Normal Comprehensiv e Internal Medicine Work Phone: Comment on above: PATIENT WAS FASTINGP ERFORMED BY: LUIS DANIEL [facility] Zsiagz50[address] [facility] [id number] GFR/1.73 sq M predicted among non-blacks CKD-EPI vol rate/area (S/P/Bld) 100 mL/min/1.73 Normal [facility] Work Phone: Comment on above: PATIENT WAS FASTINGP ERFORMED BY: LUIS DANIEL [facility] Tirqsi40[address] [facility] [id number] Globulin mass conc (S) 2.2 g/dL Normal 1.5-4.5 [facility] Work Phone: Comment on above: PATIENT WAS FASTINGP ERFORMED BY: LUIS DANIEL [facility] Rmkqhg[address] [facility] [id number] Glucose mass conc 72 mg/dL Normal 65-99 Compreh ensive Internal Medicine Work Phone: Comment on above: PATIENT WAS FASTINGP ERFORMED BY: LUIS DANIEL [facility]inaThree [facility] Bvffef[address] [facility] [id number] Potassium molar conc 4.0 mmol/L Normal 3.5-5.2 Comp rehensive Internal Medicine Work Phone: Comment on above: PATIENT WAS FASTINGP ERFORMED BY: LUIS DANIEL CatalinaUniversity [facility] Michigan Hospital6370 [facility] [id number] Protein mass conc 7.2 g/dL Normal 6.0-8.5 Compreh ensive Internal Medicine Work Phone: Comment on above: PATIENT WAS FASTINGP ERFORMED BY: LUIS DANIEL [facility] Vsdtok2928 [facility] [id number] Sodium molar conc 141 mmol/L Normal 134-144 Compreh ensive Internal Medicine Work Phone: Comment on above: PATIENT WAS FASTINGP ERFORMED BY: LUIS DANIEL [facility] Rpyxqu8688 [facility] [id number] Urea nitrogen mass conc 15 mg/dL Normal 6-24 [facility] Work Phone: Comment on above: PATIENT WAS FASTINGP ERFORMED BY: LUIS DANIEL [facility] Fiikzi3313 [facility] [id number] Urea nitrogen/Creatinine mass ratio 24 mg/mg Abnormal 9-23 [facility] Work Phone: Comment on above: PATIENT WAS FASTINGP ERFORMED BY: [facility]6370 [facility] [id number] RHEUMATOID FACTOR-QUANT ([id number] 52)Ordered By: Rail Walker on 02-28-2015 Rheumatoid factor Qn 5.9 {IU/mL} Normal 0.0-13.9 Com prehensive [facility] Medicine Work Phone: Comment on above: PATIENT WAS FASTINGP ERFORMED BY: [facility]6370 [facility] [id number] Rheumatoid factor Qn 5.9 [IU]/mL Normal 0.0-13.9 [facility] prehensive Internal Medicine; [facility] Work Phone: Comment on above: PATIENT WAS FASTINGP ERFORMED BY: SIVI6370 [facility] [id number] SED RATE ERYTHROCYTE ([id number]) Ordered By: Rail Walker on 02-28-2015 ESR Velocity (Bld) 2 mm/h Normal 0-[address] [facility] Internal Medicine Work Phone: Comment on above: PATIENT WAS FASTINGP ERFORMED BY: [employer] [facility]Get[facility]ards[address] [facility] [id number] TSH ([id number])Ordered By: Systsaul m Field Sales Specialist on 02-28-2015 Thyrotropin Qn 2.350 {uIU/mL} Normal 0.450-4.500 [facility] Internal Medicine Work Phone: Comment on above: PATIENT WAS FASTINGP ERFORMED BY: SIVI[address] [facility]orCritical [facility] [id number] Vital Signs Date Time Vital Sign Value Performing Clinician Facility 10-15-2023 14:41-0400 Body mass index (BMI) [Ratio] 26.5 kg/m2 ROLL LINE OPERATOR-C Peng Guzman Work Phone: [facility] 10-15-2023 14:41-0400 Body temperature 97.9 [degF] ROLL LINE OPERATOR-C Peng Guzman Work Phone: [facility] 10-15-2023 14:41-0400 Body weight 71.32 kg ROLL LINE OPERATOR-C Peng Guzman Work Phone: [facility] 10-15-2023 14:41-0400 Diastolic blood pressure 79 mm[Hg] ROLL LINE OPERATOR-C Peng Guzman Work Phone: [facility] 10-15-2023 14:41-0400 Heart rate 88 /min ROLL LINE OPERATOR-C Peng Guzman Work Phone: [facility] 10-15-2023 14:41-0400 Respiratory rate 16 /min ROLL LINE OPERATOR-C Peng Guzman Work Phone: [facility] 10-15-2023 14:41-0400 SaO2% (BldA) [Mass fraction] 97 % ROLL LINE OPERATOR-C Peng Adrian Work Phone: [facility] 10-15-2023 14:41-0400 Systolic blood pressure 154 mm[Hg] ROLL LINE OPERATOR-C Peng Adrian Work Phone: [facility] 12-28-2022 08:06-0400 Body height 161.29 cm Meghan Slarb SALES SERVICE PROMOTER [facility]; [facility] Work Phone: 12-28-2022 08:06-0400 Body mass index (BMI) [Ratio] 25.85 kg/m2 Meghan Slarb SALES SERVICE PROMOTER [facility]; [facility] Work Phone: 12-28-2022 08:06-0400 Body surface area Derived from formula 1.71 m2 Meghan Slarb SALES SERVICE PROMOTER [facility]; [facility] Work Phone: 12-28-2022 08:06-0400 Body temperature 97.1 [degF] Meghan Slarb SALES SERVICE PROMOTER [facility]; [facility] Work Phone: Comment on above: Method: Temporal 12-28-2022 08:06-0400 Body weight 67.25 kg Meghan Slarb SALES SERVICE PROMOTER [facility]; [facility] Work Phone: 12-28-2022 08:06-0400 Diastolic blood pressure 78 mm[Hg] Meghan Slarb SALES SERVICE PROMOTER [facility]; [facility] Work Phone: Comment on above: Patient Position: Sitting; Cuff Location : Left Arm; Cuff Size: Standard 12-28-2022 08:06-0400 Heart rate 92 /min Meghan Slarb SALES SERVICE PROMOTER [facility]; [facility] Work Phone: Comment on above: Pattern: Regular 12-28-2022 08:06-0400 Respiratory rate 16 /min Meghan Slarb SALES SERVICE PROMOTER [facility]; [facility] Work Phone: Comment on above: Pattern: Unlabored 12-28-2022 08:06-0400 SaO2% (BldA) [Mass fraction] 96 % Meghan Zhen QUIROS [facility]; [facility] Work Phone: Comment on above: Room air 12-28-2022 08:06-0400 Systolic blood pressure 122 mm[Hg] Meghan Fontaine ISHAAN [facility]; [facility] Work Phone: Comment on above: Patient Position: Sitting; Cuff Location : Left Arm; Cuff Size: Standard 10-11-2022 07:10-0400 Body height 161.29 cm Serenity Camargo MA [facility]; [facility] Work Phone: 10-11-2022 07:10-0400 Body mass index (BMI) [Ratio] 26.68 kg/m2 Serenity Camargo MA [facility]; [facility] Work Phone: 10-11-2022 07:10-0400 Body surface area Derived from formula 1.74 m2 Serenity Camargo MA [facility]; [facility] Work Phone: 10-11-2022 07:10-0400 Body temperature 97.8 [degF] Serenity Camargo MA [facility]; [facility] Work Phone: 10-11-2022 07:10-0400 Body weight 69.41 kg Serenity Camargo MA [facility]; [facility] Work Phone: 10-11-2022 07:10-0400 Diastolic blood pressure 72 mm[Hg] Serenity Camargo MA [facility]; [facility] Work Phone: Comment on above: Patient Position: Sitting; Cuff Location : Left Arm; Cuff Size: Standard 10-11-2022 07:10-0400 Heart rate 106 /min Serenity Camargo MA [facility]; [facility] Work Phone: Comment on above: Pattern: Regular 10-11-2022 07:10-0400 Respiratory rate 16 /min Serenity Camargo MA [facility]; [facility] Work Phone: Comment on above: Pattern: Unlabored 10-11-2022 07:10-0400 SaO2% (BldA) [Mass fraction] 96 % Serenity Camargo MA [facility]; [facility] Work Phone: Comment on above: Room air 10-11-2022 07:10-0400 Systolic blood pressure 122 mm[Hg] Serenity Camargo MA [facility]; [facility] Work Phone: Comment on above: Patient Position: Sitting; Cuff Location : Left Arm; Cuff Size: Standard 06-29-2022 10:57-0500 Body height 161.29 cm Kyung Lozano [facility]; [facility] Work Phone: 06-29-2022 10:57-0500 Body mass index (BMI) [Ratio] 26.68 kg/m2 Kyung Guidryuc [facility]; [facility] Work Phone: 06-29-2022 10:57-0500 Body surface area Derived from formula 1.74 m2 Kyung Lozano [facility]; [facility] Work Phone: 06-29-2022 10:57-0500 Body temperature 98.8 [degF] Kyung Guidryuc [facility]; [facility] Work Phone: Comment on above: Method: Thermal Scan 06-29-2022 10:57-0500 Body weight 69.41 kg Kyung Lozano [facility]; [facility] Work Phone: 06-29-2022 10:57-0500 Diastolic blood pressure 68 mm[Hg] Kyung Lozano [facility]; [facility] Work Phone: Comment on above: Patient Position: Sitting; Cuff Location : Left Arm; Cuff Size: Standard 06-29-2022 10:57-0500 Heart rate 98 /min [facility]; [facility] Work Phone: Comment on above: Pattern: Regular 06-29-2022 10:57-0500 Respiratory rate 16 /min Kyung Lozano [facility] Internal Medicine; [facility] Work Phone: Comment on above: Pattern: Unlabored 06-29-2022 10:57-0500 SaO2% (BldA) [Mass fraction] 98 % Kyung Lozano [facility]; [facility] Work Phone: Comment on above: Room air 06-29-2022 10:57-0500 Systolic blood pressure 140 mm[Hg] Kyung Lozano [facility]; [facility] Work Phone: Comment on above: Patient Position: Sitting; Cuff Location : Left Arm; Cuff Size: Standard 11-20-2021 13:17-0400 Body height 161.29 cm Meghan Slarb SALES SERVICE PROMOTER [facility]; [facility] Work Phone: 11-20-2021 13:17-0400 Body mass index (BMI) [Ratio] 26.85 kg/m2 Meghan Slarb SALES SERVICE PROMOTER [facility]; [facility] Work Phone: 11-20-2021 13:17-0400 Body surface area Derived from formula 1.74 m2 Meghan Slarb SALES SERVICE PROMOTER [facility]; [facility] Work Phone: 11-20-2021 13:17-0400 Body temperature 97.1 [degF] Meghan Slarb SALES SERVICE PROMOTER [facility]; [facility] Work Phone: 11-20-2021 13:17-0400 Body weight 69.86 kg Meghan Slarb SALES SERVICE PROMOTER [facility]; [facility] Work Phone: 11-20-2021 13:17-0400 Diastolic blood pressure 82 mm[Hg] Meghan Slarb SALES SERVICE PROMOTER [facility]; [facility] Work Phone: Comment on above: Patient Position: Sitting; Cuff Location : Left Arm; Cuff Size: Standard 11-20-2021 13:17-0400 Heart rate 103 /min Meghan Slarb SALES SERVICE PROMOTER [facility]; [facility] Work Phone: Comment on above: Pattern: Regular 11-20-2021 13:17-0400 Respiratory rate 17 /min Meghan Slarb SALES SERVICE PROMOTER [facility]; [facility] Work Phone: Comment on above: Pattern: Unlabored 11-20-2021 13:17-0400 SaO2% (BldA) [Mass fraction] 98 % Meghan Fontaine LPN [facility]; [facility] Work Phone: Comment on above: Room air 11-20-2021 13:17-0400 Systolic blood pressure 144 mm[Hg] Meghan Fontaine LPN [facility]; [facility] Work Phone: Comment on above: Patient Position: Sitting; Cuff Location : Left Arm; Cuff Size: Standard 10-04-2020 07:58-0500 BMI (Body Mass Index) 25.47 kg/m2 Connie Márquez [facility] Medicine; [facility] Work Phone: 10-04-2020 07:58-0500 BMI (Body Mass Index) 26.85 kg/m2 [facility]; [facility] Work Phone: 10-04-2020 07:58-0500 Body Temperature 97.1 [degF] Jamey Enamorado LPN [facility]; [facility] Work Phone: Comment on above: Method: Infrared 10-04-2020 07:58-0500 Body weight 66.25 kg Connie Billings [facility] Medicine; [facility] Work Phone: 10-04-2020 07:58-0500 Body weight 69.86 kg Jamey Enamorado LPN [facility]; [facility] Work Phone: 10-04-2020 07:58-0500 BP Diastolic 70 mm[Hg] Jamey Enamorado LPN [facility]; [facility] Work Phone: Comment on above: Patient Position: Sitting; Cuff Location : Left Arm; Cuff Size: Standard 10-04-2020 07:58-0500 BP Systolic 116 mm[Hg] Jamey Enamorado LPN [facility]; [facility] Work Phone: Comment on above: Patient Position: Sitting; Cuff Location : Left Arm; Cuff Size: Standard 10-04-2020 07:58-0500 BSA (Body Surface Area) 1.7 m2 Connie Crouch Internal Medicine; [facility] Work Phone: 10-04-2020 07:58-0500 BSA (Body Surface Area) 1.74 m2 Jamey Enamorado LPN [facility]; [facility] Work Phone: 10-04-2020 07:58-0500 Height 161.29 cm Jamey Enamorado LPN [facility]; [facility] Work Phone: 10-04-2020 07:58-0500 Pulse (Heart Rate) 84 /min Jamey Enamorado LPN [facility]; [facility] Work Phone: Comment on above: Pattern: Regular 10-04-2020 07:58-0500 Pulse Oximetry 98 % Connie Billings [facility] Internal Medicine; [facility] Work Phone: Comment on above: Room air 10-04-2020 07:58-0500 Respiratory Rate 16 /min Jamey Enamorado LPN [facility]; [facility] Work Phone: Comment on above: Pattern: Unlabored 10-04-2020 07:58-0500 SaO2% (BldA) [Mass fraction] 98 % Jamey Enamorado LPN [facility]; [facility] Work Phone: Comment on above: Room air 08-16-2020 09:06-0500 BMI (Body Mass Index) 25.47 kg/m2 Jamey hidalgo Internal Medicine; [facility] Work Phone: 08-16-2020 09:06-0500 Body weight 66.25 kg Jamey Enamorado LPN [facility]; [facility] Work Phone: 08-16-2020 09:06-0500 BSA (Body Surface Area) 1.7 m2 Jamey Enamorado LPN [facility]; [facility] Work Phone: 08-16-2020 09:06-0500 Height 161.29 cm Jamey Enamorado LPN [facility]; [facility] Work Phone: 03-23-2020 10:28-0400 BMI (Body Mass Index) 25.47 kg/m2 Jamey Fei [employer] [facility] Work Phone: 03-23-2020 10:28-0400 Body Temperature 97.6 [degF] Jamey Enamorado LPN [facility] Work Phone: Comment on above: Method: Infrared 03-23-2020 10:28-0400 Body weight 66.25 kg Jamey Enamorado LPN [facility] Work Phone: 03-23-2020 10:28-0400 BP Diastolic 82 mm[Hg] Jamey Enamorado LPN [facility] Work Phone: Comment on above: Patient Position: Sitting; Cuff Location : Left Arm; Cuff Size: Standard 03-23-2020 10:28-0400 BP Systolic 158 mm[Hg] Jamey Enamorado LPN [facility] Work Phone: Comment on above: Patient Position: Sitting; Cuff Location : Left Arm; Cuff Size: Standard 03-23-2020 [id number] BSA (Body Surface Area) 1.7 m2 Jamey Enamorado LPN [facility] Work Phone: 03-23-2020 10:28-0400 Height 161.29 cm Jamey Enamorado LPN [facility] Work Phone: 03-23-2020 10:28-0400 Pulse (Heart Rate) 77 /min Jamey Enamorado LPN [facility] Work Phone: Comment on above: Pattern: Regular 03-23-2020 10:28-0400 Pulse Oximetry 96 % Connie Billings [facility] Internal Medicine Work Phone: Comment on above: Room air 03-23-2020 10:28-0400 Respiratory Rate 16 /min Jamey Enamorado LPN [facility] Work Phone: Comment on above: Pattern: Unlabored 03-23-2020 10:28-0400 SaO2% (BldA) [Mass fraction] 96 % Jamey Enamorado LPN [facility]; [facility] Work Phone: Comment on above: Room air 02-09-2020 07:49-0400 BMI (Body Mass Index) 26.33 kg/m2 Connie Billings [facility] Work Phone: 02-09-2020 07:49-0400 BMI (Body Mass Index) 25.47 kg/m2 Jamey Enamorado LPN [facility] Work Phone: 02-09-2020 07:49-0400 Body Temperature 97.1 [degF] Jamey Enamorado LPN [facility] Internal Medicine Work Phone: Comment on above: Method: Thermal Scan 02-09-2020 07:49-0400 Body weight 68.5 kg Connie Billings [facility] Internal Medicine Work Phone: 02-09-2020 07:49-0400 Body weight 66.25 kg Jamey Enamorado LPN [facility] Internal Medicine Work Phone: 02-09-2020 07:49-0400 BP Diastolic 78 mm[Hg] Jamey Enamorado LPN [facility] Internal Medicine Work Phone: Comment on above: Patient Position: Sitting; Cuff Location : Left Arm; Cuff Size: Standard 02-09-2020 07:49-0400 BP Systolic 136 mm[Hg] Jamey Enamorado LPN [facility] Internal Medicine Work Phone: Comment on above: Patient Position: Sitting; Cuff Location : Left Arm; Cuff Size: Standard 02-09-2020 07:49-0400 BSA (Body Surface Area) 1.73 m2 Connie Awa [facility] Internal Medicine Work Phone: 02-09-2020 07:49-0400 BSA (Body Surface Area) 1.7 m2 Jamey Enamorado LPN [facility] Internal Medicine Work Phone: 02-09-2020 07:49-0400 Height 161.29 cm Jamey Enamorado LPN [facility] Internal Medicine Work Phone: 02-09-2020 07:49-0400 Pulse (Heart Rate) 94 /min Jamey Enamorado LPN [facility] Work Phone: Comment on above: Pattern: Regular 02-09-2020 07:49-0400 Pulse Oximetry 98 % Connie Billings [facility] Internal Medicine Work Phone: Comment on above: Room air 02-09-2020 07:49-0400 Respiratory Rate 16 /min Jamey Enamorado LPN [facility] Internal Medicine Work Phone: Comment on above: Pattern: Unlabored 02-09-2020 07:49-0400 SaO2% (BldA) [Mass fraction] 98 % Jamey Enamorado LPN [facility]; [facility] Work Phone: Comment on above: Room air 06-09-2019 08:02-0500 BMI (Body Mass Index) 26.33 kg/m2 Jamey Enamorado LPN [facility] Work Phone: 06-09-2019 08:02-0500 Body Temperature 97.1 [degF] Jamey Enamorado LPN [facility] Internal Medicine Work Phone: Comment on above: Method: Temporal 06-09-2019 08:02-0500 Body weight 68.5 kg Jamey Enamorado LPN [facility] Internal Medicine Work Phone: 06-09-2019 08:02-0500 BP Diastolic 74 mm[Hg] Jamey Enamorado LPN [facility] Internal Medicine Work Phone: Comment on above: Patient Position: Sitting; Cuff Location : Left Arm; Cuff Size: Standard 06-09-2019 08:02-0500 BP Systolic 124 mm[Hg] Jamey Enamorado LPN [facility] Internal Medicine Work Phone: Comment on above: Patient Position: Sitting; Cuff Location : Left Arm; Cuff Size: Standard 06-09-2019 08:02-0500 BSA (Body Surface Area) 1.73 m2 Jamey Enamorado LPN [facility] Internal Medicine Work Phone: 06-09-2019 08:02-0500 Height 161.29 cm Jamey Enamorado LPN [facility] Internal Medicine Work Phone: 06-09-2019 08:02-0500 Pulse (Heart Rate) 79 /min Jamey Enamorado LPN [facility] Work Phone: Comment on above: Pattern: Regular 06-09-2019 08:02-0500 Pulse Oximetry 95 % Connie Pawanbelinda [facility] Internal Medicine Work Phone: Comment on above: Room air 06-09-2019 08:02-0500 Respiratory Rate 16 /min Jamey Enamorado LPN [facility] Internal Medicine Work Phone: Comment on above: Pattern: Unlabored 06-09-2019 08:02-0500 SaO2% (BldA) [Mass fraction] 95 % Jamey Enamorado LPN [facility]; [facility] Work Phone: Comment on above: Room air 01-26-2019 13:49-0400 BMI (Body Mass Index) 26.39 kg/m2 [employer] [facility] Internal Medicine Work Phone: 01-26-2019 13:49-0400 Body weight 68.66 kg [employer] [facility] Internal Medicine Work Phone: 01-26-2019 13:49-0400 BP Diastolic 74 mm[Hg] [employer] [facility] Internal Medicine Work Phone: Comment on above: Patient Position: Sitting; Cuff Location : Left Arm; Cuff Size: Standard 01-26-2019 13:49-0400 BP Systolic 132 mm[Hg] [employer] [facility] Work Phone: Comment on above: Patient Position: Sitting; Cuff Location : Left Arm; Cuff Size: Standard 01-26-2019 13:49-0400 BSA (Body Surface Area) 1.73 m2 [employer] [facility] Work Phone: 01-26-2019 13:49-0400 Height 161.29 cm [employer] [facility] Work Phone: 01-26-2019 13:49-0400 Pulse (Heart Rate) 86 /min [employer] [facility] Work Phone: Comment on above: Pattern: Regular 01-26-2019 13:49-0400 Pulse Oximetry 97 % Connie Pawanbelinda [facility] Work Phone: Comment on above: Room air 01-26-2019 13:49-0400 Respiratory Rate 18 /min [employer] [facility] Work Phone: Comment on above: Pattern: Unlabored 01-26-2019 13:49-0400 SaO2% (BldA) [Mass fraction] 97 % [employer] [facility]; [facility] Work Phone: Comment on above: Room air 10-29-2018 12:56-0400 BMI (Body Mass Index) 26.34 kg/m2 Jamey Enamorado LPN [facility] Work Phone: 10-29-2018 12:56-0400 Body Temperature 97.8 [degF] Jamey Enamorado LPN [facility] Work Phone: Comment on above: Method: Temporal 10-29-2018 12:56-0400 Body weight 68.51 kg Jamey Enamorado LPN [facility] Work Phone: 10-29-2018 12:56-0400 BP Diastolic 78 mm[Hg] Jamey Enamorado LPN [facility] Work Phone: Comment on above: Patient Position: Sitting; Cuff Location : Left Arm; Cuff Size: Standard 10-29-2018 12:56-0400 BP Systolic 126 mm[Hg] Jamey Enamorado LPN [facility] Internal Medicine Work Phone: Comment on above: Patient Position: Sitting; Cuff Location : Left Arm; Cuff Size: Standard 10-29-2018 12:56-0400 BSA (Body Surface Area) 1.73 m2 Jamey Enamorado LPN [facility] Work Phone: 10-29-2018 12:56-0400 Height 161.29 cm Jamey Enamorado LPN [facility] Internal Medicine Work Phone: 10-29-2018 12:56-0400 Pulse (Heart Rate) 89 /min Jamey Enamorado LPN [facility] Work Phone: Comment on above: Pattern: Regular 10-29-2018 12:56-0400 Pulse Oximetry 97 % Connie Peterstiffanie [facility] Internal Medicine Work Phone: Comment on above: Room air 10-29-2018 12:56-0400 Respiratory Rate 16 /min Jamey Enamorado LPN [facility] Internal Medicine Work Phone: Comment on above: Pattern: Unlabored 10-29-2018 12:56-0400 SaO2% (BldA) [Mass fraction] 97 % Jamey Enamorado LPN [facility]; [facility] Work Phone: Comment on above: Room air 10-29-2018 12:56-0400 Weight 68.51 kg Connie Billings [facility] Internal Medicine Work Phone: 10-08-2018 08:45-0400 BMI (Body Mass Index) 27.61 kg/m2 Sabrina Luevano [facility] Internal Medicine Work Phone: 10-08-2018 08:45-0400 Body Temperature 98.2 [degF] Sabrina Luevano [facility] Internal Medicine Work Phone: Comment on above: Method: Temporal 10-08-2018 08:45-0400 Body weight 71.84 kg Sabrina Luevano [facility] Internal Medicine Work Phone: 10-08-2018 08:45-0400 BP Diastolic 88 mm[Hg] Sabrina Luevano [facility] Internal Medicine Work Phone: Comment on above: Patient Position: Sitting; Cuff Location : Left Arm; Cuff Size: Standard 10-08-2018 08:45-0400 BP Systolic 148 mm[Hg] Sabrina Luevano [facility] Internal Medicine Work Phone: Comment on above: Patient Position: Sitting; Cuff Location : Left Arm; Cuff Size: Standard 10-08-2018 08:45-0400 BSA (Body Surface Area) 1.76 m2 Sabrina Luevano [facility] Internal Medicine Work Phone: 10-08-2018 08:45-0400 Height 161.29 cm Sabrina Luevano [facility] Internal Medicine Work Phone: 10-08-2018 08:45-0400 Pulse (Heart Rate) 76 /min Sabrina Luevano [facility] Internal Medicine Work Phone: Comment on above: Pattern: Regular 10-08-2018 08:45-0400 Pulse Oximetry 98 % Connie Billings [facility] Internal Medicine Work Phone: Comment on above: Room air 10-08-2018 08:45-0400 Respiratory Rate 16 /min Sabrina Luevano [facility] Internal Medicine Work Phone: Comment on above: Pattern: Unlabored 10-08-2018 08:45-0400 SaO2% (BldA) [Mass fraction] 98 % Sabrina Luevano [facility] Internal Medicine; [facility] Work Phone: Comment on above: Room air 10-08-2018 08:45-0400 Weight 71.84 kg Connie Billings [facility] Internal Medicine Work Phone: 09-24-2018 08:32-0500 BMI (Body Mass Index) 27.61 kg/m2 Sabrina Luevano [facility] Internal Medicine Work Phone: 09-24-2018 08:32-0500 Body Temperature 98.5 [degF] Sabrina Luevano [facility] Internal Medicine Work Phone: Comment on above: Method: Temporal 09-24-2018 08:32-0500 Body weight 71.84 kg Sabrina Luevano [facility] Internal Medicine Work Phone: 09-24-2018 08:32-0500 BP Diastolic 92 mm[Hg] Sabrina Luevano [facility] Internal Medicine Work Phone: Comment on above: Patient Position: Sitting; Cuff Location : Left Arm; Cuff Size: Standard 09-24-2018 08:32-0500 BP Systolic 146 mm[Hg] Sabrina Luevano [facility] Internal Medicine Work Phone: Comment on above: Patient Position: Sitting; Cuff Location : Left Arm; Cuff Size: Standard 09-24-2018 08:32-0500 BSA (Body Surface Area) 1.76 m2 Sabrina Luevano [facility] Internal Medicine Work Phone: 09-24-2018 08:32-0500 Height 161.29 cm Sabrina Luevano [facility] Internal Medicine Work Phone: 09-24-2018 08:32-0500 Pulse (Heart Rate) 72 /min Sabrina Luevano [facility] Internal Medicine Work Phone: Comment on above: Pattern: Regular 09-24-2018 08:32-0500 Pulse Oximetry 99 % Connie Billings [facility] Internal Medicine Work Phone: Comment on above: Room air 09-24-2018 08:32-0500 Respiratory Rate 16 /min Sabrina Luevano [facility] Internal Medicine Work Phone: Comment on above: Pattern: Unlabored 09-24-2018 08:32-0500 SaO2% (BldA) [Mass fraction] 99 % Sabrina Luevano [facility]; [facility] Work Phone: Comment on above: Room air 09-24-2018 08:32-0500 Weight 71.84 kg Connie Billings [facility] Internal Medicine Work Phone: 07-05-2017 09:01-0500 BMI (Body Mass Index) 24.41 kg/m2 Charmaine Enamorado [facility] Internal Medicine Work Phone: 07-05-2017 09:01-0500 Body weight 63.5 kg Charmaine Enamorado [facility] Internal Medicine Work Phone: 07-05-2017 09:01-0500 BP Diastolic 74 mm[Hg] Charmaine Enamorado [facility] Internal Medicine Work Phone: Comment on above: Patient Position: Sitting; Cuff Location : Left Arm; Cuff Size: Standard 07-05-2017 09:01-0500 BP Systolic 122 mm[Hg] Charmaine Enamorado [facility] Internal Medicine Work Phone: Comment on above: Patient Position: Sitting; Cuff Location : Left Arm; Cuff Size: Standard 07-05-2017 09:01-0500 BSA (Body Surface Area) 1.67 m2 Charmaine Enamorado [facility] Internal Medicine Work Phone: 07-05-2017 09:01-0500 Height 161.29 cm Charmaine Enamorado [facility] Internal Medicine Work Phone: 07-05-2017 09:01-0500 Pulse (Heart Rate) 91 /min Charmaine Enamorado [facility] Internal Medicine Work Phone: Comment on above: Pattern: Regular 07-05-2017 09:01-0500 Pulse Oximetry 95 % Connie Billings [facility] Internal Medicine Work Phone: Comment on above: Room air 07-05-2017 09:01-0500 Respiratory Rate 18 /min Charmaine Enamorado [facility] Internal Medicine Work Phone: Comment on above: Pattern: Unlabored 07-05-2017 09:01-0500 SaO2% (BldA) [Mass fraction] 95 % Charmaine Fei [facility]; [facility] Work Phone: Comment on above: Room air 07-05-2017 09:01-0500 Weight 63.5 kg Connie Billings [facility] Internal Medicine Work Phone: 04-05-2016 09:56-0400 BMI (Body Mass Index) 23.19 kg/m2 Jj Sharma [facility] Internal Medicine Work Phone: 04-05-2016 09:56-0400 Body Temperature 98 [degF] [facility] Internal Medicine Work Phone: 04-05-2016 09:56-0400 Body weight 60.33 kg [facility] Internal Medicine Work Phone: 04-05-2016 09:56-0400 BP Diastolic 78 mm[Hg] [facility] Internal Medicine Work Phone: Comment on above: Patient Position: Sitting; Cuff Location : Left Arm; Cuff Size: Standard 04-05-2016 09:56-0400 BP Systolic 138 mm[Hg] [facility] Internal Medicine Work Phone: Comment on above: Patient Position: Sitting; Cuff Location : Left Arm; Cuff Size: Standard 04-05-2016 09:56-0400 BSA (Body Surface Area) 1.64 m2 [facility] Internal Medicine Work Phone: 04-05-2016 09:56-0400 Height 161.29 cm [facility] Internal Medicine Work Phone: 04-05-2016 09:56-0400 Pulse (Heart Rate) 67 /min [facility] Internal Medicine Work Phone: Comment on above: Pattern: Regular 04-05-2016 09:56-0400 Pulse Oximetry 98 % Connie Billings [facility] Internal Medicine Work Phone: Comment on above: Room air 04-05-2016 09:56-0400 Respiratory Rate 16 /min [facility] Internal Medicine Work Phone: Comment on above: Pattern: Unlabored 04-05-2016 09:56-0400 SaO2% (BldA) [Mass fraction] 98 % [facility]; [facility] Work Phone: Comment on above: Room air 04-05-2016 09:56-0400 Weight 60.33 kg Connie Billings [facility] Work Phone: 05-05-2015 14:29-0400 BMI (Body Mass Index) 23.19 kg/m2 RODRIGO Ivy LPN [facility] Work Phone: 05-05-2015 14:29-0400 Body Temperature 97.2 [degF] RODRIGO Ivy LPN [facility] Work Phone: Comment on above: Method: Temporal 05-05-2015 14:290400 Body weight 60.33 kg RODRIGO Ivy LPN [facility] Work Phone: 05-05-2015 14:29-0400 BP Diastolic 84 mm[Hg] RODRIGO Ivy LPN [facility] Work Phone: Comment on above: Patient Position: Sitting; Cuff Location : Left Arm; Cuff Size: Standard 05-05-2015 14:29-0400 BP Systolic 134 mm[Hg] RODRIGO Ivy LPN [facility] Work Phone: Comment on above: Patient Position: Sitting; Cuff Location : Left Arm; Cuff Size: Standard 05-05-2015 14:29-0400 BSA (Body Surface Area) 1.64 m2 RODRIGO Ivy LPN [facility] Work Phone: 05-05-2015 14:29-0400 Height 161.29 cm RODRIGO Ivy LPN [facility] Work Phone: 05-05-2015 14:29-0400 Pulse (Heart Rate) 94 /min RODRIGO Ivy LPN [facility] Work Phone: Comment on above: Pattern: Regular 05-05-2015 14:29-0400 Pulse Oximetry 98 % Connie Billings [facility] Work Phone: Comment on above: Room air 05-05-2015 14:29-0400 Respiratory Rate 18 /min RODRIGO Ivy LPN [facility] Work Phone: Comment on above: Pattern: Unlabored 05-05-2015 14:29-0400 SaO2% (BldA) [Mass fraction] 98 % RODRIGO Ivy LPN [facility]; [facility] Work Phone: Comment on above: Room air 05-05-2015 14:29-0400 Weight 60.33 kg Connie Billings [facility] Internal Medicine Work Phone: 03-15-2015 08:28-0400 BMI (Body Mass Index) 23.19 kg/m2 Annia Hitchcockhannyjimy Jenn liue Internal Medicine Work Phone: 03-15-2015 08:28-0400 Body Temperature 97.4 [degF] Annia Yanet [facility] Internal Medicine Work Phone: Comment on above: Method: Oral 03-15-2015 08:28-0400 Body weight 60.33 kg Annia Yanet [facility] Internal Medicine Work Phone: 03-15-2015 08:28-0400 BP Diastolic 80 mm[Hg] Annia Yanet [facility] Internal Medicine Work Phone: Comment on above: Patient Position: Sitting; Cuff Location : Left Arm; Cuff Size: Standard 03-15-2015 08:28-0400 BP Systolic 136 mm[Hg] Annia Yanet [facility] Internal Medicine Work Phone: Comment on above: Patient Position: Sitting; Cuff Location : Left Arm; Cuff Size: Standard 03-15-2015 08:28-0400 BSA (Body Surface Area) 1.64 m2 Annia Yanet [facility] Internal Medicine Work Phone: 03-15-2015 08:28-0400 Height 161.29 cm Annia Holt [facility] Internal Medicine Work Phone: 03-15-2015 08:28-0400 Pulse (Heart Rate) 74 /min Annia Yanet [facility] Work Phone: Comment on above: Pattern: Regular 03-15-2015 08:28-0400 Respiratory Rate 16 /min Annia Yanet [facility] Internal Medicine Work Phone: Comment on above: Pattern: Unlabored 03-15-2015 08:28-0400 Weight 60.33 kg Connie Billings [facility] Internal Medicine Work Phone: 02-28-2015 11:56-0400 BMI (Body Mass Index) 23.19 kg/m2 Annia Holt [facility] Work Phone: 02-28-2015 11:56-0400 Body Temperature 97.9 [degF] Annia Holt [facility] Internal Medicine Work Phone: Comment on above: Method: Temporal 02-28-2015 11:56-0400 Body weight 60.33 kg Annia Holt [facility] Internal Medicine Work Phone: 02-28-2015 11:56-0400 BP Diastolic 82 mm[Hg] Annia Holt [facility] Internal Medicine Work Phone: Comment on above: Patient Position: Sitting; Cuff Location : Left Arm; Cuff Size: Standard 02-28-2015 11:56-0400 BP Systolic 124 mm[Hg] Annia Holt [facility] Internal Medicine Work Phone: Comment on above: Patient Position: Sitting; Cuff Location : Left Arm; Cuff Size: Standard 02-28-2015 11:56-0400 BSA (Body Surface Area) 1.64 m2 Annia Holt [facility] Internal Medicine Work Phone: 02-28-2015 11:56-0400 Height 161.29 cm Annia Holt [facility] Internal Medicine Work Phone: 02-28-2015 11:56-0400 Pulse (Heart Rate) 80 /min Annia Holt [facility] Work Phone: Comment on above: Pattern: Regular 02-28-2015 11:56-0400 Respiratory Rate 16 /min Annia Holt [facility] Internal Medicine Work Phone: Comment on above: Pattern: Unlabored 02-28-2015 11:56-0400 Weight 60.33 kg Connie Billings [facility] Internal Medicine Work Phone: 10-19-2013 10:10-0400 Body Temperature 97.3 [degF] Annia Holt [facility] Internal Medicine Work Phone: 10-19-2013 10:10-0400 Body weight 63.05 kg Annia Holt [facility] Internal Medicine Work Phone: 10-19-2013 10:10-0400 BP Diastolic 84 mm[Hg] Annia Holt [facility] Internal Medicine Work Phone: Comment on above: Patient Position: Sitting; Cuff Location : Left Arm; Cuff Size: Standard 10-19-2013 10:10-0400 BP Systolic 122 mm[Hg] Annia Holt [facility] Internal Medicine Work Phone: Comment on above: Patient Position: Sitting; Cuff Location : Left Arm; Cuff Size: Standard 10-19-2013 10:10-0400 Pulse (Heart Rate) 72 /min Annia Holt [facility] Internal Medicine Work Phone: Comment on above: Pattern: Regular 10-19-2013 10:10-0400 Respiratory Rate 16 /min Annia Holt [facility] Internal Medicine Work Phone: Comment on above: Pattern: Unlabored 10-19-2013 10:10-0400 Weight 63.05 kg [facility] Medicine Work Phone: 09-24-2006 08:13-0500 Body Temperature 98.7 [degF] [facility] Internal Medicine Work Phone: Comment on above: Method: Undefined 09-24-2006 08:13-0500 [facility] Work Phone: 09-24-2006 08:13-0500 BP Diastolic 80 mm[Hg] [facility] Medicine Work Phone: Comment on above: Patient Position: Sitting; Cuff Location : Left Arm; Cuff Size: Standard 09-24-2006 08:13-0500 BP Systolic 136 mm[Hg] [facility] Medicine Work Phone: Comment on above: Patient Position: Sitting; Cuff Location : Left Arm; Cuff Size: Standard 09-24-2006 08:13-0500 Head Circumference 0 cm [facility] Work Phone: 09-24-2006 08:13-0500 Head Occipital-frontal circumference 0 cm [facility] Work Phone: [facility]; [facility] Work Phone: 09-24-2006 08:13-0500 Height 0 cm Connie Billings [facility] Work Phone: 09-24-2006 08:13-0500 Pulse (Heart Rate) 68 /min Connie Billings [facility] Work Phone: Comment on above: Pattern: Regular 09-24-2006 08:13-0500 Respiratory Rate 20 /min Connie Billings [facility] Work Phone: Comment on above: Pattern: Undefined 09-24-2006 08:13-0500 Weight 0 kg Connie Billings [facility] Work Phone: Encounters Encounter Date Encounter Type Care Provider Facility Start: 05-18-2025 ambulatory Peng Guzman Facility :[facility] Start: 05-11-2025 ambulatory Peng Guzman Facility :[facility] Start: 06-16-2024 End: 06-16-2024 ambulatory Peng Guzman Facility:[facility] Start: 10-17-2023 End: 10-17-2023 ambulatory ROLL LINE OPERATOR-C Peng Guzman Work Phone: [facility] Work Phone: Start: 10-17-2023 End: 10-17-2023 Patient encounter procedure ROLL LINE OPERATOR-C Peng Guzman Work Phone: [facility] Work Phone: Start: 10-15-2023 End: 10-15-2023 Patient encounter procedure ROLL LINE OPERATOR-C Peng Guzman Work Phone: [facility] Work Phone: Start: 12-28-2022 End: 12-28-2022 Office outpatient visit 25 minutes Peng Guzman DIETETIC ASSISTANT Work Phone: [facility] Start: 12-28-2022 Review Peng Guzman DIETETIC ASSISTANT Work Phone: [facility] Start: 12-25-2022 End: 12-25-2022 Patient encounter procedure Peng Guzman DIETETIC ASSISTANT Work Phone: [facility] Start: 10-11-2022 End: 10-11-2022 Office outpatient visit 10 minutes Peng Guzman CNP Work Phone: [facility] Start: 06-29-2022 ambulatory Peng Guzman CNP Comp [facility] Med Start: 06-29-2022 Review Peng Guzman CNP Work Phone: [facility] Start: 06-29-2022 End: 07-12-2022 Office outpatient visit 15 minutes Peng Guzman CNP Work Phone: [facility] Start: 11-20-2021 End: 11-27-2021 Office outpatient visit 15 minutes Connie Billings Work Phone: [facility] Start: 10-04-2020 End: 10-04-2020 Office outpatient visit 15 minutes Connie Billings [facility] Start: 10-04-2020 Review Connie Awa [facility] Start: 08-23-2020 End: 08-23-2020 Office outpatient visit 10 minutes Connie Billings [facility] Start: 08-19-2020 End: 08-19-2020 Office outpatient visit 10 minutes Connie Billings [facility] Start: 08-18-2020 End: 08-18-2020 Annotation/Addendum Connie Billings [facility] Start: 08-16-2020 End: 08-16-2020 Office outpatient visit 15 minutes Connie Billings [facility] Start: 03-23-2020 End: 03-23-2020 Office outpatient visit 15 minutes Connie Billings [facility] Start: 02-09-2020 End: 02-09-2020 Office outpatient visit 25 minutes Connie Billings [facility] Start: 02-09-2020 Review Connie Billings [facility] Start: 12-02-2019 End: 12-02-2019 Annotation/Addendum Connie Billings [facility] Start: 06-09-2019 Review Connie Billings [facility] Start: 06-09-2019 End: 08-05-2019 Annotation/Addendum Connie Billings [facility] Start: 06-09-2019 Review Connie Billings [facility] Start: 06-09-2019 End: 06-09-2019 Office outpatient visit 25 minutes Connie Crouch [facility] Start: 01-26-2019 End: 01-26-2019 Office outpatient visit 25 minutes Connie Crouch [facility] Start: 11-19-2018 End: 11-19-2018 Annotation/Addendum Connie Petersvirgilbelinda Crouch Appeals Writer al Medicine Start: 10-29-2018 End: 10-29-2018 Office outpatient visit 15 minutes Connie Crouch [facility] Start: 10-08-2018 End: 10-08-2018 Office outpatient visit 25 minutes Connie Billings [facility] Start: 09-24-2018 End: 09-24-2018 Office outpatient visit 25 minutes Connie Crouch Internal Medicine Start: 07-05-2017 End: 07-05-2017 Office outpatient visit 15 minutes Connie Crouch Internal Medicine Start: 04-05-2016 End: 04-05-2016 Office outpatient visit 15 minutes Connie Crouch Internal [facility] Start: 05-05-2015 End: 05-05-2015 Office outpatient visit 40 minutes Connie Crouch Internal Medicine Start: 03-15-2015 End: 03-15-2015 Office outpatient visit 15 minutes Connie Billings [facility] Internal Medicine Start: 02-28-2015 End: 02-28-2015 Office outpatient visit 25 minutes Connie Billings [facility] Medicine Start: 10-19-2013 End: 10-19-2013 Patient encounter procedure Connie Crouch Internal [facility] Start: 09-24-2006 End: 09-24-2006 Patient encounter procedure Connie Awa [facility] Internal Medicine Procedures Date Procedure Procedure Detail Performing Clinician Start: 10-17-2023 MRI of bilateral breasts with contrast ROLL LINE OPERATOR-C Peng Guzman Work Phone: Start: 11-20-2022 End: 11-21-2022 Dexa Bone Density Study Procedure Note: See Note; NOTES: [facility] Imaging Services [address] [place] [address] Dexa Bone Density Study MR#: [id number] Acct: [id number] Name: MANAS LYNN Rep #: [id number] : 1955 F 67 From: Bryant avilez MD PCP: Connie Billings ROLL LINE OPERATOR-C Status: REG CLI Study: Dexa Bone Density Study Date of Exam: 11/20/22 Exam# [id number] Ordering Dr: Peng Guzman STUDY: DUAL ENERGY X-RAY ABSORPTIOMETRY / DXA REASON FOR EXAM: Female, 67 years old. Z780 TECHNIQUE: Bone Mineral Density (BMD) measurements of lumbar spine and bilateral hips were obtained. COMPARISON: Comparison is made with prior study November 15, 2020. FINDINGS: Lumbar Spine (L1-L4): g/cm2 (0.722) / T-score (-3.0) / Z-score (-1.1) Findings are suggestive of osteoporosis with a high fracture risk. Left Femur Total: g/cm2 (0.735) / T-score (-1.7) / Z-score (-0.4) Left Femoral Neck: g/cm2 (0.637) / T-score (-1.9) / Z-score (-0.3) Right Femur Total: g/cm2 (0.717) / T-score (-1.8) / Z-score (-0.5) Right Femoral Neck: g/cm2 (0.635) / T-score (-1.9) / Z-score (-0.3) The T-Scores on the most recent prior examination were: Lumbar Spine (L1-L4): There has been worsening of bone density since the previous examination. Left Femur Total: which represents an improvement of 3.5%. Right Femur Total: which represents a worsening of 3.7%. BD/Dexa Bone Density Study IMPRESSION: The patient is considered osteoporotic as outlined below according to World Vikram Organization (WHO) criteria with a high fracture risk. There has been worsening of bone density since the previous examination. Reference Information: The T-score is the number of standard deviations above or below the standard which is normal for young adults at their peak bone mineral density. The World Health Organization (WHO) interprets the T-scores as follows: Above -1 Normal bone density Between -1 and -2.5 Osteopenia Equal to / or below -2.5 Osteoporosis As a practical clinical guideline, osteopenia may be graded as follows: Mild -1 through -1.5 Moderate -1.6 through -2.0 Severe -2.1 through -2.4 The Z-score is the number of standard deviations above or below age-matched controls. A Z-score of less than -1.5 would be considered abnormal. References: 1. NIH Osteoporosis and Related Bone Diseases www osteo.org 2. International Society for Clinical Densitometry www iscd.org 3. National Osteoporosis Foundation www nof.org Electronically Signed: Bryant Acuña MD at 9:14 EDT Reading Location ID and State: [address] [place] [address] , Service support , CC: CHATA Guzman; CHATA Billings Supervisor Reclamation: Signed Peng Guzman CNP Work Phone: Start: 11-20-2022 End: 11-20-2022 SCRN MAMM (CAD)W/MAMTA BILAT Procedure Note: See Note; NOTES: [facility] Imaging Services [address] [place] [address] SCRN MAMM (CAD)W/MAMTA BILAT MR#: [id number] Acct: [id number] Name: MANAS LYNN Rep #: [id number] : 1955 F 67 From: Bryant avilez MD PCP: CHATA Mar Status: REG CLI Study: SCRN MAMM (CAD)W/MAMTA BILAT Date of Exam: 10/28 12/18 Exam# [id number] Ordering Dr: Peng Guzman MAMMOGRAPHY - BILATERAL SCREENING REASON FOR EXAM: Female, 67 years old. Routine annual screening examination. PERTINENT HISTORY: Non-contributory. Bilateral breast implants. TECHNIQUE: Digital bilateral breast mamta (3D mammographic acquisition) in the CC and MLO projections. 2-D mediolateral oblique (MLO) and craniocaudad (CC) views of both breasts were obtained. CAD: Full Field Digital Mammography with Computer Added Detection was performed. COMPARISON: Comparison is made with prior study November 15, 2020 and October 27, 2018. FINDINGS: Breast Composition: The breasts are heterogeneously dense, which may obscure small masses. There are no dominant masses or suspicious calcifications. Stable appearance of the bilateral breast implants. Stable small benign-appearing bilateral axillary lymph nodes. No other significant abnormalities are identified. There has been no significant change since the prior study. BI/SCRN MAMM (CAD)W/MAMTA BILAT IMPRESSION: Stable bilateral screening mammogram. Yearly follow-up mammogram recommended. (A) ASSESSMENT CATEGORY: BIRADS Category 2: Benign. A letter regarding these results will be sent to the patient by the facility within 30 days. Approximately 10% of breast cancers are not detected by mammography. A normal mammogram should not delay biopsy of a clinically suspicious abnormality. [id number] Electronically Signed: Bryant Acuña MD at 10:32 EDT Reading Location ID and State: [facility] [place] , Service support , CC: CHATA Guzman; CHATA Billings Supervisor Reclamation: Signed Peng Guzman [facility] Work Phone: Start: 11-15-2020 End: 11-15-2020 Dexa Bone Density Study Comments: See Note; NOTES: [facility] Imaging Services [address] [place] [address] Dexa Bone Density Study MR#: [id number] Acct: [id number] Name: MANAS LYNN Rep #: [id number] : 1955 F 65 From: Bryant avilez MD PCP: CHATA Mar Status: REG CLI Study: Dexa Bone Density Study Date of Exam: 11/15/20 Exam# [id number] Ordering Dr: Connie Billings NP STUDY: DUAL ENERGY X-RAY ABSORPTIOMETRY / DXA REASON FOR EXAM: Female, 65 years old. Z780. The patient is postmenopausal. Loss of height. TECHNIQUE: Bone Mineral Density (BMD) measurements of lumbar spine and bilateral hips were obtained. COMPARISON: Comparison is made with prior study dated 10/02/2018. FINDINGS: Lumbar Spine (L1-L4): g/cm2 (0.840) / T-score (-2.8) / Z-score (-1.3) Findings are suggestive of osteoporosis with a high fracture risk. Left Femur Total: g/cm2 (0.770) / T-score (-1.9) / Z-score (-0.7) Left Femoral Neck: g/cm2 (0.761) / T-score (-2.0) / Z-score (-0.6) Right Femur Total: g/cm2 (0.804) / T-score (-1.6) / Z-score (-0.5) Right Femoral Neck: g/cm2 (0.777) / T-score (-1.9) / Z-score (-0.4) The T-Scores on the most recent prior examination were: Lumbar Spine (L1-L4): There has been improvement of bone density since the previous examination. Left Femur Total: which represents a worsening of 0.4%. Right Femur Total: which represents an improvement of 4.3%. BD/Dexa Bone Density Study IMPRESSION: The patient is considered osteoporotic as outlined below according to World Vikram Organization (WHO) criteria with a high fracture risk. There has been improvement of bone density since the previous examination. Reference Information: The T-score is the number of standard deviations above or below the standard which is normal for young adults at their peak bone mineral density. The World Health Organization (WHO) interprets the T-scores as follows: Above -1 Normal bone density Between -1 and -2.5 Osteopenia Equal to / or below -2.5 Osteoporosis As a practical clinical guideline, osteopenia may be graded as follows: Mild -1 through -1.5 Moderate -1.6 through -2.0 Severe -2.1 through -2.4 The Z-score is the number of standard deviations above or below age-matched controls. A Z-score of less than -1.5 would be considered abnormal. References: 1. NIH Osteoporosis and Related Bone Diseases www osteo.org 2. International Society for Clinical Densitometry www iscd.org 3. National Osteoporosis Foundation www nof.org Electronically Signed: Bryant Acuña MD at 14:25 EDT , Service support , CC: CHATA Billings Supervisor Reclamation: Signed Connie Billings [facility] Work Phone: Start: 11-15-2020 End: 11-15-2020 SCRN MAMM (CAD)W/MAMTA BILAT Comments: See Note; NOTES: [facility] Imaging Services [address] [place] [address] SCRN MAMM (CAD)W/MAMTA BILAT MR#: [id number] Acct: [id number] Name: MANAS LYNN Rep #: [id number] : 1955 F 65 From: Bryant avilez MD PCP: CHATA Mar Status: [facility] Study: SCRN MAMM (CAD)W/MAMTA BILAT Date of Exam: 10/28 Exam# [id number] Ordering Dr: Connie Billings NP ROLL LINE OPERATOR-C MAMMOGRAPHY - BILATERAL SCREENING REASON FOR EXAM: Female, 65 years old. Routine annual screening examination. PERTINENT HISTORY: Non-contributory. Bilateral breast implants. TECHNIQUE: Digital bilateral breast mamta (3D mammographic acquisition) in the CC and MLO projections. 2-D mediolateral oblique (MLO) and craniocaudad (CC) views of both breasts were obtained. CAD: Full Field Digital Mammography with Computer Added Detection was performed. COMPARISON: Comparison is made with prior study dated 10/27/2018 and 09/18/2016. FINDINGS: Breast Composition: The breasts are heterogeneously dense, which may obscure small masses. There are no dominant masses or suspicious calcifications. Stable appearance of the bilateral breast implants as well as the benign appearing axillary lymph nodes. No other significant abnormalities are identified. There has been no significant change since the prior study. BI/SCRN MAMM (CAD)W/MAMTA BILAT IMPRESSION: Stable bilateral screening mammogram. Yearly follow-up mammogram recommended. (A) ASSESSMENT CATEGORY: BIRADS Category 2: Benign. A letter regarding these results will be sent to the patient by the facility within 30 days. Approximately 10% of breast cancers are not detected by mammography. A normal mammogram should not delay biopsy of a clinically suspicious abnormality. [id number] Electronically Signed: Bryant Acuña MD at 13:07 EDT , Service support , CC: CHATA Billings Supervisor Reclamation: Signed Connie Billings DIETETIC ASSISTANT Work Phone: Start: 10-27-2018 End: 10-27-2018 SCREENING MAMM (CAD), BILAT Comments: See Note; NOTES: [facility] Imaging Services [address] [place] [address] SCREENING MAMM (CAD), BILAT MR#: [id number] Acct: [id number] Name: MANAS LYNN Rep #: [id number] : 1955 F 63 From: Bryant Acuña MD PCP: Connie Billings NP Status: REG CLI Study: SCREENING MAMM (CAD), BILAT Date of Exam: 10/27/18 Exam# [id number] Ordering Dr: Princess Sorenson MD MAMMOGRAPHY - BILATERAL SCREENING REASON FOR EXAM: Female, 63 years old. Routine annual screening examination. PERTINENT HISTORY: Non-contributory. Bilateral breast implants. TECHNIQUE: Digital bilateral breast mamta (3D mammographic acquisition) in the CC and MLO projections. 2-D mediolateral oblique (MLO) and craniocaudad (CC) views of both breasts were obtained. CAD: Full Field Digital Mammography with Computer Added Detection was performed. COMPARISON: Comparison is made with prior study dated September 18, 2016 and September 04, 2013. FINDINGS: Breast Composition: The breasts are heterogeneously dense, which may obscure small masses. There are no dominant masses or suspicious calcifications. Stable appearance of the bilateral breast implants. Stable appearance of the bilateral axillary lymph nodes. No other significant abnormalities are identified. There has been no significant change since the prior study. BI/SCREENING MAMM (CAD), BILAT IMPRESSION: Stable bilateral screening mammogram. Yearly follow-up mammogram recommended. (A) ASSESSMENT CATEGORY: BIRADS Category 2: Benign. A letter regarding these results will be sent to the patient by the facility within 30 days. Approximately 10% of breast cancers are not detected by mammography. A normal mammogram should not delay biopsy of a clinically suspicious abnormality. [id number] Electronically Signed: Bryant Acuña, at 15:50 EDT , Service support , CC: Connie Billings NP; Princess Sorenson MD Supervisor Reclamation: Signed Connie Billings Start: 10-27-2018 End: 10-27-2018 Emergency Department Summary Comments: See Note; NOTES: [facility] Medical Records Department [address] [place] [address] Emergency Department Summary 10/22/18 2338 MR#: [id number] Acct: [id number] Name: MANAS LYNN Rep #: [id number] : 1955 63 From: Pito Rosenberg DO PCP: Connie Billings NP Status: DEP ER - ER Visit Summary Date of Service: 10/22/18 Chief Complaint: Hypertension History of Present Illness: The patient is a 63 F who tells me that 2 weeks ago after a long hiatus she was seen by primary care. Was noted that her blood pressure was around 146 systolic. She is advised to get a blood pressure cuff and monitor her blood pressures at home return in 1 month. She states that tonight she got a blood pressure cuff and took it is in the 176 range. She took it again and it was a little bit more elevated. She states that all day she has felt "a little bit off balance". She denies any headache or visual symptoms. No arm or leg weakness or paresthesias. No ringing in the ears or heartbeat in the ear. No neck pain or chest pain. Physical Examination: 194/85 heart rate of 87 respirations are 15 pulse ox 97% room air temperature 97 Gen: Well-nourished well-developed Head: Normocephalic atraumatic Eyes: Perrl EOMI ENT: TMs clear no rhinorrhea moist mucous membranes Neck: Supple no lymphadenopathy no JVD nontender CVS: Regular rate rhythm no murmurs normal S1-S2 Respiratory: No distress clear to auscultation bilaterally chest nontender Abdomen: Soft nontender nondistended normal bowel sounds no masses Back: Nontender Extremity: Nontender no edema Skin: Normal color no rash Neuro: alert orientated 3 CN II-XII intact normal strength sensation reflexes gait cerebellar (finger to nose and heel to johns normal) NIH 0 Psych: Normal affect normal mood Test Results: BMP shows a normal creatinine. Troponin is negative. EKG is a normal sinus rhythm. Chest x-ray shows a normal mediastinal silhouette. CBC is normal. Head CT is negative. Emergency Department Course and Treatment: Patient's blood pressure has come down on its own to a systolic of 163. I spoke at length with the patient regarding dietary and lifestyle modifications as well as options of beginning treatment versus continued monitoring and following up with primary care. At this point I am going to write 5 mg amlodipine once a day have her continue to monitor pressures and follow-up in the office. Patient and are comfortable with this plan return if worsening or concerns Impression: 1. Primary hypertension This note was generated with [email or web address] software. It may contain incorrect words, spelling, and punctuation that were not noted in review of the chart prior to signing ED Disposition - Plan for ED Patient: Disposition: Home or Assisted Living Instructions: ED Hypertension New Begin Tx Prescriptions: Amlodipine [Norvasc] 5 mg PO DAILY #30 tab Referrals: Connie Billings, ROLL LINE OPERATOR-C [Primary Care Provider] - Keep Holden appointment What to do if you have Problems For any increased pain, shortness of breath, bleeding, nausea or vomiting, chest pain, or any unexpected problems, contact your Primary Care Provider. Call [facility] ([phone]) or report to the closest Emergency Room. Call 911 if necessary. 10/27/18 0719 <Electronically signed by Pito Rosenberg DO> Date Pito Rosenberg DO Cosigner Signature (If Indicated): Date CC: Connie Billings Start: 10-23-2018 End: 10-23-2018 12 lead ECG Comments: See Note; NOTES: [facility] Cardiovascular Services [address] [place] [address] 12 Lead EKG 10/22/18 2342 MR#: [id number] Acct: [id number] Name: MANAS LYNN Rep #: [id number] : 1955 63 From: Ger Larson MD Attending Dr: Status: DEP ER Ordering Dr: Pito Rosenberg DO Date: 10/22/18 Location: ED Sex: F C Admitted: Test Reason : HYPERTENSION Blood Pressure : / mmHG Vent. Rate : 082 BPM Atrial Rate : 082 BPM P-R Int : 128 ms QRS Dur : 088 ms QT Int : 380 ms P-R-T Axes : 061 026 028 degrees QTc Int : 443 ms Normal sinus rhythm Normal ECG Confirmed by JACI KWONG, GER ([id number]), quality process lead ALBERTO VARNER ([id number]) on 10/23/2018 1:14:39 PM Referred By: Confirmed By:GER LARSON MD 10/23/18 1314 Date Ger Larson MD CC: Connie Billings NP; Pito Rosenberg DO Signed Connie Billings Start: 10-22-2018 End: 10-23-2018 Brain/Head without Contrast Comments: See Note; NOTES: [facility] Imaging Services [address] [place] [address] Brain/Head without Contrast MR#: [id number] Acct: [id number] Name: MANAS LYNN Rep #: [id number] : 1955 F 63 From: Nathen Borden MD PCP: Connie Billings NP Status: REG ER Study: Brain/Head without Contrast Date of Exam: 10/23/18 Exam# [id number] Ordering Dr: Pito Rosenberg DO STUDY: CT BRAIN WITHOUT CONTRAST REASON FOR EXAM: Female, 63 years old. Dizziness RADIATION DOSAGE (If Supplied By Facility): CTDIvol = ( 44.99 ) mGy, DLP = ( 762.36 ) mGycm TECHNIQUE: Transaxial CT imaging of the brain was performed without administration of intravenous contrast material. Individualized dose optimization techniques were used for this CT. COMPARISON: No relevant priors. FINDINGS: Normal soft tissue structures. Normal calvarium. Normal size ventricles and extra-axial spaces for the patient's age. Normal white matter tracts of the cerebral hemispheres. Normal basal ganglia and thalami. Normal brainstem. Normal cerebellum. There is no intracranial hemorrhage. There are no findings of an acute ischemic infarction. Normal visualized paranasal sinuses. CT/Brain/Head without Contrast IMPRESSION: Normal unenhanced CT scan of the brain. Electronically Signed: Nathen Borden, at 0:27 EDT Tel , Service support , CC: Connie Billings NP; Pito Rosenberg DO Supervisor Reclamation: Signed Connie Billings Start: 10-22-2018 End: 10-23-2018 Chest PA and Lateral Comments: See Note; NOTES: [facility] Imaging Services [address] [place] [address] Chest PA and Lateral MR#: [id number] Acct: [id number] Name: MANAS LYNN Rep #: [id number] : 1955 F 63 From: Nathen Borden MD PCP: Connie Billings NP Status: DEP ER Study: Chest PA and Lateral Date of Exam: 10/22/18 Exam# [id number] Ordering Dr: Pito Rosenberg DO STUDY: X-RAY CHEST REASON FOR EXAM: Female, 63 years old. Hypertension TECHNIQUE: Frontal and lateral views of the chest. COMPARISON: None. FINDINGS: There is hyperinflation of the lungs consistent with chronic obstructive lung disease (COPD). There is no demonstrated pleural abnormality. Normal size heart. Normal mediastinum and brandt. Normal visualized pulmonary arteries. Normal visualized aortic arch and descending thoracic aorta. There are diffuse degenerative changes of the visualized thoracic spine. Normal visualized ribs, clavicles, and shoulders. There is no demonstrated abnormality of the visualized soft tissue structures of the upper abdomen. RAD/Chest PA and Lateral IMPRESSION: No acute cardiopulmonary disease identified. Findings suggest possible COPD. Electronically Signed: Nathen Saldanaford, at 1:00 EDT Tel , Service support , CC: Connie Billings NP; Pito Rosenberg DO Supervisor Reclamation: Signed Connie Billings Start: 10-02-2018 End: 10-03-2018 Dexa Bone Density Study Comments: See Note; NOTES: [facility] Imaging Services [address] [place] [id number] Dexa Bone Density Study MR#: [id number] Acct: [id number] Name: MANAS LYNN Rep #: [id number] : 1955 F 63 From: Bryant Acuña MD PCP: Connie Billings NP Status: REG CLI Study: Dexa Bone Density Study Date of Exam: 10/02/18 Exam# [id number] Ordering Dr: Connie Billings NP-Zain STUDY: DUAL ENERGY X-RAY ABSORPTIOMETRY / DXA REASON FOR EXAM: Female, 63 years old. The patient is postmenopausal. Loss of height. TECHNIQUE: Bone Mineral Density (BMD) measurements of lumbar spine and bilateral hips were obtained. COMPARISON: None. FINDINGS: Lumbar Spine (L1-L4): g/cm2 (0.837) / T-score (-2.9) / Z-score (-1.5) Findings are suggestive of osteoporosis with a high fracture risk. Left Femur Total: g/cm2 (0.773) / T-score (-1.9) / Z-score (-0.8) Left Femoral Neck: g/cm2 (0.776) / T-score (-1.9) / Z-score (-0.5) Right Femur Total: g/cm2 (0.771) / T-score (-1.9) / Z-score (-0.8) Right Femoral Neck: g/cm2 (0.768) / T-score (-1.9) / Z-score (-0.6) BD/Dexa Bone Density Study IMPRESSION: The patient is considered osteoporotic as outlined below according to World Vikram Organization (WHO) criteria with a high fracture risk. Reference Information: The T-score is the number of standard deviations above or below the standard which is normal for young adults at their peak bone mineral density. The World Health Organization (WHO) interprets the T-scores as follows: Above -1 Normal bone density Between -1 and -2.5 Osteopenia Equal to / or below -2.5 Osteoporosis As a practical clinical guideline, osteopenia may be graded as follows: Mild -1 through -1.5 Moderate -1.6 through -2.0 Severe -2.1 through -2.4 The Z-score is the number of standard deviations above or below age-matched controls. A Z-score of less than -1.5 would be considered abnormal. References: 1. NIH Osteoporosis and Related Bone Diseases http://www.osteo.org 2. International Society for Clinical Densitometry http://www.iscd.org 3. National Osteoporosis Foundation http://www.nof.org Electronically Signed: Bryant Acuña, at 11:46 EST , Service support , CC: Connie Billings NP Supervisor Reclamation: Signed Connie Billings Work Phone: Start: 09-29-2018 End: 10-01-2018 Hand Min 3 Views Comments: See Note; NOTES: [facility] Imaging Services [address] [place] [address] Hand Min 3 Views MR#: [id number] Acct: [id number] Name: MANAS LYNN Rep #: [id number] : 1955 F 63 From: Eloy Buckner MD PCP: Connie Billings NP Status: REG CLI Study: Hand Min 3 Views Date of Exam: 09/29/18 Exam# [id number] Ordering Dr: Connie Billings NP-C STUDY: X-RAY - RIGHT HAND REASON FOR EXAM: Female, 63 years old. Right hand pain TECHNIQUE: 3 view(s) of the hand. COMPARISON: None. FINDINGS: Degenerative change of the radiocarpal joint. Normal distal radioulnar joint. Normal visualized carpal bones. Normal carpal articulations Moderate degenerative change of the first carpometacarpal and triscaphe the joints. Normal second through fifth carpometacarpal joints. Normal metacarpi. Mild degenerative change of the first metacarpophalangeal joint and interphalangeal joint of the thumb. Normal proximal and distal phalanges of the thumb. Normal metacarpophalangeal joints of the second through fifth fingers. Normal proximal and distal interphalangeal joints of the second through fifth fingers. Normal phalanges of the second through fifth fingers. The soft tissue structures are unremarkable. RAD/Hand Min 3 Views IMPRESSION: Multifocal osteoarthritic change Electronically Signed: Eloy Buckner MD at 0:15 EST Tel , Service support , CC: Connie Billings NP Supervisor Reclamation: Signed Connie Billings Work Phone: Start: 09-18-2016 End: 09-18-2016 SCREENING MAMM (CAD), BILAT Comments: See Note; NOTES: [facility] Imaging Services [address] [place] [address] [place] 4d SCREENING MAMM (CAD), BILAT MR#: [id number] Acct: [id number] Name: MANAS LYNN Rep #: [id number] : 1955 F 61 From: Bryant Acuña MD PCP: Michelle Pang DO Status: REG CLI Study: SCREENING MAMM (CAD), BILAT Date of Exam: 09/18/16 Exam# [id number] Ordering Dr: Princess Sorenson MD MAMMOGRAPHY - BILATERAL SCREENING REASON FOR EXAM: Female, 61 years old. Routine annual screening examination. PERTINENT HISTORY: Prior bilateral breast implants. TECHNIQUE: Digital bilateral breast mamta (3D mammographic acquisition) in the CC and MLO projections. 2-D mediolateral oblique (MLO) and craniocaudad (CC) views of both breasts were obtained. CAD: Full Field Digital Mammography with Computer Added Detection was performed. COMPARISON: Comparison is made with prior study dated September 04, 2013 and August 16, 2010. FINDINGS: Breast Composition: The breasts are heterogeneously dense, which may obscure small masses. There are no dominant masses or suspicious calcifications. Stable appearance of the bilateral breast implants. No other significant abnormalities are identified. There has been no significant change since the prior study. HPBI/SCREENING MAMM (CAD), BILAT IMPRESSION: Stable bilateral screening mammogram. Yearly follow-up mammogram recommended. (A) ASSESSMENT CATEGORY: BIRADS Category 2: Benign. A letter regarding these results will be sent to the patient by the facility within 30 days. Approximately 10% of breast cancers are not detected by mammography. A normal mammogram should not delay biopsy of a clinically suspicious abnormality. [id number] Electronically Signed: Bryant Acuña MD at 9:04 EST Tel [phone], Service support [phone], CC: Princess Sorenson MD; Michelle Pang DO Supervisor Reclamation: Signed Connie Billings Start: 10-19-2013 End: 10-19-2013 No Known Past Surgical History Charmaine Enamorado Screening for osteoporosis Screening for osteoporosis Connie Billings Screening for osteoporosis Screening for osteoporosis Connie Billings DIETETIC ASSISTANT Work Phone: Plan of Treatment Date Care Activity Detail Author Start: 12-28-2022 Assay of ferritin FERRITIN (10844) [facility]; [facility] Work Phone: Start: 12-28-2022 Blood count complete auto&auto difrntl wbc CBC, PLATELETS & AUT DIFF (21924) : please do peripheral smear, thrombocytosis [facility]; [facility] Work Phone: Start: 12-28-2022 Blood smear peripheral interp phys w/writ report BLOOD SMEAR INTERPRETATION (46170) [facility]; [facility] Work Phone: Comment on above: hx melanomathrombocytosis Start: 12-28-2022 Procedure Education Eprescribed prescriptions (G8553) [facility]; [facility] Work Phone: Start: 12-28-2022 Provider Instructions for Treatment Follow up in 1 year [facility]; [facility] Work Phone: Start: 12-28-2022 Urnls dip stick/tablet reagent auto microscopy Urinalysis, Complete W/ Microscopic Examination with reflex to urine culture, routine (21703) [facility]; [facility] Work Phone: Start: 12-28-2022 Urnls dip stick/tablet rgnt non-auto w/o micrscp Urinalysis, Office (63314) [facility]; [facility] Work Phone: Start: 12-25-2022 Assay of thyroid stimulating hormone tsh TSH (THYROID STIMULATING HORMONE) (46354) [facility]; [facility] Work Phone: Start: 12-25-2022 Blood count complete auto&auto difrntl wbc CBC, PLATELETS & AUT DIFF (98877) [facility]; [facility] Work Phone: Start: 12-25-2022 Comprehensive metabolic panel METABOLIC PANEL, COMPREHENSIVE (50099) [facility]; [facility] Work Phone: Start: 12-25-2022 Cyanocobalamin vitamin b-12 VITAMIN B12 AND FOLATES (25570) [facility]; [facility] Work Phone: Start: 12-25-2022 Lipid panel LIPID PANEL (95225) [facility]; [facility] Work Phone: Start: 12-25-2022 Urinalysis qual/semiquant except immunoassays URINALYSIS (68728) [facility]; [facility] Work Phone: Start: 10-11-2022 Procedure Education Eprescribed prescriptions (G8553) [facility]; [facility] Work Phone: Start: 10-11-2022 Provider Instructions for Treatment [facility]; [facility] Work Phone: Start: 06-29-2022 Procedure Education Eprescribed prescriptions (G8553) [facility]; [facility] Work Phone: Start: 06-29-2022 Provider Instructions for Treatment Follow up in 6 months [facility]; [facility] Work Phone: Start: 11-20-2021 Procedure Education Eprescribed prescriptions (G8553) [facility]; [facility] Work Phone: Start: 10-04-2020 Procedure Education Eprescribed prescriptions (G8553) [facility]; [facility] Work Phone: Start: 10-04-2020 Provider Instructions for Treatment [facility]; [facility] Work Phone: Start: 10-04-2020 25 hydroxy includes fractions if performed CALCIFEDIOL (19900) [facility]; [facility] Work Phone: Comment on above: Mar 2021 Start: 10-04-2020 Cobalamin (Vitamin B12) [Mass/Vol] VITAMIN B12 AND FOLATES (05301) [facility]; [facility] Work Phone: Comment on above: Mar 2021 Start: 10-04-2020 Cyanocobalamin vitamin b-12 VITAMIN B12 AND FOLATES (22109) [facility]; [facility] Work Phone: Comment on above: Mar 2021 Start: 10-04-2020 Assay of thyroid stimulating hormone tsh TSH (THYROID STIMULATING HORMONE) (70798) [facility]; [facility] Work Phone: Comment on above: Mar 2021 Start: 10-04-2020 TSH Qn TSH (THYROID STIMULATING HORMONE) (56642) [facility]; [facility] Work Phone: Comment on above: Mar 2021 Start: 10-04-2020 Comprehensive metabolic panel Metabolic Panel, Comprehensive (61859) [facility]; [facility] Work Phone: Comment on above: Mar 2021 Start: 10-04-2020 Lipid panel Lipid Panel (98380) [facility]; [facility] Work Phone: Comment on above: Mar 2021 Start: 08-16-2020 Procedure Education Eprescribed prescriptions (G8553) [facility]; [facility] Work Phone: Start: 08-16-2020 Provider Instructions for Treatment [facility]; [facility] Work Phone: Start: 03-23-2020 Procedure Education Eprescribed prescriptions (G8553) [facility] Work Phone: Start: 03-23-2020 Provider Instructions for Treatment Follow up as needed [facility] Work Phone: Start: 02-09-2020 Procedure Education Eprescribed prescriptions (G8553) [facility] Work Phone: Start: 02-09-2020 Provider Instructions for Treatment Follow up in 6 months [facility] Work Phone: Start: 02-09-2020 25 hydroxy includes fractions if performed CALCIFEDIOL (07422) [facility] Work Phone: Comment on above: 07-17 Start: 02-09-2020 TSH Qn TSH (26445) [facility] Work Phone: Comment on above: Start: 02-09-2020 Comprehensive metabolic panel Metabolic Panel, Comprehensive (34791) [facility] Work Phone: Comment on above: Start: 12-02-2019 25 hydroxy includes fractions if performed CALCIFEDIOL (54748) [facility] Work Phone: Start: 12-02-2019 Comprehensive metabolic panel METABOLIC PANEL, COMPREHENSIVE (66521) [facility] Work Phone: Start: 12-02-2019 Urinalysis qual/semiquant except immunoassays URINALYSIS (53237) [facility] Work Phone: Start: 12-02-2019 Blood count complete automated CBC & PLATELETS (AUTO) (29800) [facility] Work Phone: Start: 12-02-2019 Assay of thyroid stimulating hormone tsh TSH (THYROID STIMULATING HORMONE) (85082) [facility]; [facility] Work Phone: Start: 12-02-2019 TSH Qn TSH (THYROID STIMULATING HORMONE) (80372) [facility] Work Phone: Start: 06-09-2019 Procedure Education Eprescribed prescriptions (G8553) [facility] Work Phone: Start: 06-09-2019 Provider Instructions for Treatment [facility] Work Phone: Start: 04-28-2019 Blood count complete auto&auto difrntl wbc CBC, Platelets & Auto Diff (24818) [facility] Work Phone: Start: 04-28-2019 Comprehensive metabolic panel Metabolic Panel, Comprehensive (23524) [facility] Work Phone: Start: 04-28-2019 TSH Qn TSH (14646) [facility] Work Phone: Start: 01-26-2019 Comprehensive metabolic panel Metabolic Panel, Comprehensive (36661) [facility] Work Phone: Start: 01-26-2019 Protein electrophoretic fractj&quantj serum [facility] Work Phone: Start: 01-26-2019 Calcium urine quantitative timed specimen URINE CALCIUM HIPOLITO TIMED 24 Hour (26636) [facility] Work Phone: Start: 01-26-2019 Phosphate [Mass/Vol] PHOSPHORUS (87354) [facility] Work Phone: Start: 01-26-2019 Sedimentation rate rbc non-automated SED RATE ERYTHROCYTE (74295) [facility] Work Phone: Start: 01-26-2019 ALP [Catalytic activity/Vol] ALKALINE PHOSPHATASE (83989) [facility] Work Phone: Start: 01-26-2019 Assay of phosphatase alkaline ALKALINE PHOSPHATASE (08957) [facility]; [facility] Work Phone: Start: 01-26-2019 25 hydroxy includes fractions if performed CALCIFEDIOL (35296) [facility] Work Phone: Start: 01-26-2019 Procedure Education Eprescribed prescriptions (G8553) [facility] Work Phone: Start: 01-26-2019 Provider Instructions for Treatment [facility] Work Phone: Start: 10-29-2018 Assay of parathormone PARATHORMONE (08834) [facility] Work Phone: Start: 10-29-2018 Procedure Education Eprescribed prescriptions (G8553) [facility] Work Phone: Start: 10-29-2018 Provider Instructions for Treatment [facility] Work Phone: Start: 10-08-2018 Procedure Education Eprescribed prescriptions (G8553) [facility] Work Phone: Start: 10-08-2018 Provider Instructions for Treatment Follow up in 3 months [facility] Work Phone: Start: 09-24-2018 Procedure Education Eprescribed prescriptions (G8553) [facility] Work Phone: Start: 09-24-2018 Provider Instructions for Treatment Follow up in 2 weeks [facility] Work Phone: Start: 09-24-2018 Blood count complete auto&auto difrntl wbc CBC, Platelets & Auto Diff (47913) [facility] Work Phone: Start: 09-24-2018 Comprehensive metabolic panel Metabolic Panel, Comprehensive (66700) [facility] Work Phone: Start: 09-24-2018 Lipid panel LIPID PANEL (96867) [facility] Work Phone: Start: 09-24-2018 Assay of thyroid stimulating hormone tsh TSH (THYROID STIMULATING HORMONE) (93408) [facility]; [facility] Work Phone: Start: 09-24-2018 Thyrotropin Qn TSH (THYROID STIMULATING HORMONE) (92974) [facility] Work Phone: Start: 09-24-2018 25 hydroxy includes fractions if performed CALCIFEDIOL (93645) [facility] Work Phone: Start: 09-24-2018 C-reactive protein C-Reactive Protein (19743) [facility]; [facility] Work Phone: Start: 09-24-2018 CRP mass conc C-Reactive Protein (75404) [facility] Work Phone: Start: 09-24-2018 Sedimentation rate rbc non-automated SED RATE ERYTHROCYTE (93103) [facility] Work Phone: Start: 09-24-2018 Rheumatoid factor qualitative RHEUMATOID FACTOR-QUAL (19970) [facility] Work Phone: Start: 09-24-2018 Cyclic citrullinated peptide antibody CCP ANTIBODY (02294) [facility] Work Phone: Start: 07-05-2017 Procedure Education Eprescribed prescriptions (G8553) [facility] Work Phone: Start: 04-05-2016 Procedure Education Eprescribed prescriptions (G8553) [facility] Work Phone: Start: 04-05-2016 Provider Instructions for Treatment [facility] Work Phone: Start: 04-05-2016 Blood occult fecal hgb deter ia qual feces 1-3 FECAL OCCULT- Tubes sent home (72147) [facility] Work Phone: Start: 03-15-2015 Procedure Education Eprescribed prescriptions (G8553) [facility] Work Phone: Start: 02-28-2015 Procedure Education Eprescribed prescriptions (G8553) [facility] Work Phone: Start: 02-28-2015 Assay of thyroid stimulating hormone tsh TSH (81837) [facility]; [facility] Work Phone: Start: 02-28-2015 Thyrotropin Qn TSH (67004) [facility] Work Phone: Start: 10-19-2013 Provider Instructions for Treatment *Antibiotic Usage Education - Female [facility] Work Phone: Start: 09-24-2006 Provider Instructions for Treatment [facility] Work Phone: [facility] Work Phone: [facility] Work Phone: [facility] Work Phone: [facility] Work Phone: [facility] Work Phone: [facility] Work Phone: [facility] Work Phone[facility] Work Phone: [facility]; [facility] Work Phone: [facility]; [facility] Work Phone: [facility]; [facility] Work Phone: [facility]; [facility] Work Phone: Payers Date Payer Category Payer Medicare [id number] 2024 Self-pay [id number] 2021 Unknown [id number] 2020 Unknown [id number] 2019 Unknown [id number] 2016 Unknown [id number] 2014 Unknown [id number] 1955 Unknown [id number] [id number] [id number] Unknown Unknown [id number] Unknown [facility] [id number] Unknown [id number] 2.16.8 [id number] Unknown [id number] 2.16.8 [id number] Unknown [id number] 2.16.8 [id number] Unknown [id number] 2.16.8 [id number] Social History Date Type Detail Facility Caffeine Use Never smoker [facility] Work Phone: Comment on above: 1-2 cups/day Tobacco use: Never smoker. [facility] Work Phone: Tobacco use: Tobacco use: [facility]; [facility] Work Phone: Start: 10-15-2023 Tobacco smoking status ORIS Unknown if ever smoked [facility] Start: 1955 Sex Assigned At Female [facility] Clinical Notes Note Date & Type Note Facility Evaluation note Diagnosis Onset Date Breast asymmetry acute Breast implant capsular contracture acute Presence of silicone breast implant acute [facility] Work Phone: Instructions* Name Dates Details Patient Instructions Indication:Nonsmoker Start:04-Oct-2020 Instruction Type:Provider Instructions for Treatment How to Access Health Informa tion Online using Patient Portal and 3rd [employer] Apps Indication:Nonsmoker Start:04-Oct-2020 Instruction Type:Patient Education Patient Instructions Indication:Post-menopausal Start:16-Aug-2020 Instruction Type:Provider Instructions for Treatment How to Access Health Informa tion Online using Patient Portal and [employer] Apps Indication:Nonsmoker Start:16-Aug-2020 Instruction Type:Patient Education How to access health informa tion online Indication:BMI 25.0-25.9,adult Start:23-Mar-2020 Instruction Type:Patient Education How to access health informa tion online - Detail Indication:BMI 25.0-25.9,adult Start:23-Mar-2020 Instruction Type:Patient Education Patient Instructions Indication:BMI 25.0-25.9,adult Start:23-Mar-2020 Instruction Type:Provider Instructions for Treatment How to access health informa tion online Indication:Nonsmoker Start:09-Feb-2020 Instruction Type:Patient Education How to access health informa tion online - Detail Indication:Nonsmoker Start:09-Feb-2020 Instruction Type:Patient Education Patient Instructions Indication:Vitamin D deficiency Start:09-Feb-2020 Instruction Type:Provider Instructions for Treatment How to access health informa tion online Indication:Nonsmoker Start:09-Jun-2019 Instruction Type:Patient Education How to access health informa tion online - Detail Indication:Nonsmoker Start:09-Jun-2019 Instruction Type:Patient Education Patient Instructions Indication:Nonsmoker Start:09-Jun-2019 Instruction Type:Provider Instructions for Treatment How to access health informa tion online Indication:BMI 26.0-26.9,adult Start:26-Jan-2019 Instruction Type:Patient Education How to access health informa tion online - Detail Indication:BMI 26.0-26.9,adult Start:26-Jan-2019 Instruction Type:Patient Education Patient Instructions Indication:Nonsmoker Start:26-Jan-2019 Instruction Type:Provider Instructions for Treatment How to access health informa tion online Indication:Nonsmoker Start:29-Oct-2018 Instruction Type:Patient Education How to access health informa tion online - Detail Indication:Nonsmoker Start:29-Oct-2018 Instruction Type:Patient Education Patient Instructions Indication:Nonsmoker Start:29-Oct-2018 Instruction Type:Provider Instructions for Treatment How to access health informa tion online Indication:Nonsmoker Start:08-Oct-2018 Instruction Type:Patient Education How to access health informa tion online - Detail Indication:Nonsmoker Start:08-Oct-2018 Instruction Type:Patient Education Patient Instructions Indication:BMI 27.0-27.9,adult Start:08-Oct-2018 Instruction Type:Provider Instructions for Treatment How to access health informa tion online Indication:Nonsmoker Start:24-Sep-2018 Instruction Type:Patient Education How to access health informa tion online - Detail Indication:Nonsmoker Start:24-Sep-2018 Instruction Type:Patient Education Patient Instructions Indication:Nonsmoker Start:24-Sep-2018 Instruction Type:Provider Instructions for Treatment How to access health informa tion online Indication:Hypothyroidism Start:05-Jul-2017 Instruction Type:Patient Education How to access health informa tion online - Detail Indication:Hypothyroidism Start:05-Jul-2017 Instruction Type:Patient Education Patient Instructions Indication:Nonsmoker Start:05-Jul-2017 Instruction Type:Provider Instructions for Treatment How to access health informa tion online Indication:Post-menopausal Start:05-Apr-2016 Instruction Type:Patient Education How to access health informa tion online - Detail Indication:Post-menopausal Start:05-Apr-2016 Instruction Type:Patient Education Patient Instructions Indication:Post-menopausal Start:05-Apr-2016 Instruction Type:Provider Instructions for Treatment How to access health informa tion online Indication:Cough Start:05-May-2015 Instruction Type:Patient Education How to access health informa tion online - Detail Indication:Cough Start:05-May-2015 Instruction Type:Patient Education Patient Instructions Indication:Cough Start:05-May-2015 Instruction Type:Provider Instructions for Treatment Patient Instructions Indication:Cough Start:05-May-2015 Instruction Type:Provider Instructions for Treatment How to access health informa tion online Indication:Pain in unspecified joint Start:15-Mar-2015 Instruction Type:Patient Education How to access health informa tion online - Detail Indication:Pain in unspecified joint Start:15-Mar-2015 Instruction Type:Patient Education Patient Instructions Indication:Pain in unspecified joint Start:15-Mar-2015 Instruction Type:Provider Instructions for Treatment Patient Instructions Indication:Hypothyroidism Start:28-Feb-2015 Instruction Type:Provider Instructions for Treatment Patient Instructions Indication:Acute sinusitis, unspecified Start:19-Oct-2013 Instruction Type:Provider Instructions for Treatment [facility]; [facility] Work Phone: Instructions* Name Dates Details Patient Instructions Indication:Nonsmoker Start:04-Oct-2020 Instruction Type:Provider Instructions for Treatment How to Access Health Informa tion Online using Patient Portal and [employer]rd [employer] Apps Indication:Nonsmoker Start:04-Oct-2020 Instruction Type:Patient Education Patient Instructions Indication:Post-menopausal Start:16-Aug-2020 Instruction Type:Provider Instructions for Treatment How to Access Health Informa tion Online using Patient Portal and [employer]rd [employer] Apps Indication:Nonsmoker Start:16-Aug-2020 Instruction Type:Patient Education How to access health informa tion online Indication:BMI 25.0-25.9,adult Start:23-Mar-2020 Instruction Type:Patient Education How to access health informa tion online - Detail Indication:BMI 25.0-25.9,adult Start:23-Mar-2020 Instruction Type:Patient Education Patient Instructions Indication:BMI 25.0-25.9,adult Start:23-Mar-2020 Instruction Type:Provider Instructions for Treatment How to access health informa tion online Indication:Nonsmoker Start:09-Feb-2020 Instruction Type:Patient Education How to access health informa tion online - Detail Indication:Nonsmoker Start:09-Feb-2020 Instruction Type:Patient Education Patient Instructions Indication:Vitamin D deficiency Start:09-Feb-2020 Instruction Type:Provider Instructions for Treatment How to access health informa tion online Indication:Nonsmoker Start:09-Jun-2019 Instruction Type:Patient Education How to access health informa tion online - Detail Indication:Nonsmoker Start:09-Jun-2019 Instruction Type:Patient Education Patient Instructions Indication:Nonsmoker Start:09-Jun-2019 Instruction Type:Provider Instructions for Treatment How to access health informa tion online Indication:BMI 26.0-26.9,adult Start:26-Jan-2019 Instruction Type:Patient Education How to access health informa tion online - Detail Indication:BMI 26.0-26.9,adult Start:26-Jan-2019 Instruction Type:Patient Education Patient Instructions Indication:Nonsmoker Start:26-Jan-2019 Instruction Type:Provider Instructions for Treatment How to access health informa tion online Indication:Nonsmoker Start:29-Oct-2018 Instruction Type:Patient Education How to access health informa tion online - Detail Indication:Nonsmoker Start:29-Oct-2018 Instruction Type:Patient Education Patient Instructions Indication:Nonsmoker Start:29-Oct-2018 Instruction Type:Provider Instructions for Treatment How to access health informa tion online Indication:Nonsmoker Start:08-Oct-2018 Instruction Type:Patient Education How to access health informa tion online - Detail Indication:Nonsmoker Start:08-Oct-2018 Instruction Type:Patient Education Patient Instructions Indication:BMI 27.0-27.9,adult Start:08-Oct-2018 Instruction Type:Provider Instructions for Treatment How to access health informa tion online Indication:Nonsmoker Start:24-Sep-2018 Instruction Type:Patient Education How to access health informa tion online - Detail Indication:Nonsmoker Start:24-Sep-2018 Instruction Type:Patient Education Patient Instructions Indication:Nonsmoker Start:24-Sep-2018 Instruction Type:Provider Instructions for Treatment How to access health informa tion online Indication:Hypothyroidism Start:05-Jul-2017 Instruction Type:Patient Education How to access health informa tion online - Detail Indication:Hypothyroidism Start:05-Jul-2017 Instruction Type:Patient Education Patient Instructions Indication:Nonsmoker Start:05-Jul-2017 Instruction Type:Provider Instructions for Treatment How to access health informa tion online Indication:Post-menopausal Start:05-Apr-2016 Instruction Type:Patient Education How to access health informa tion online - Detail Indication:Post-menopausal Start:05-Apr-2016 Instruction Type:Patient Education Patient Instructions Indication:Post-menopausal Start:05-Apr-2016 Instruction Type:Provider Instructions for Treatment How to access health informa tion online Indication:Cough Start:05-May-2015 Instruction Type:Patient Education How to access health informa tion online - Detail Indication:Cough Start:05-May-2015 Instruction Type:Patient Education Patient Instructions Indication:Cough Start:05-May-2015 Instruction Type:Provider Instructions for Treatment Patient Instructions Indication:Cough Start:05-May-2015 Instruction Type:Provider Instructions for Treatment How to access health informa tion online Indication:Pain in unspecified joint Start:15-Mar-2015 Instruction Type:Patient Education How to access health informa tion online - Detail Indication:Pain in unspecified joint Start:15-Mar-2015 Instruction Type:Patient Education Patient Instructions Indication:Pain in unspecified joint Start:15-Mar-2015 Instruction Type:Provider Instructions for Treatment Patient Instructions Indication:Hypothyroidism Start:28-Feb-2015 Instruction Type:Provider Instructions for Treatment Patient Instructions Indication:Acute sinusitis, unspecified Start:19-Oct-2013 Instruction Type:Provider Instructions for Treatment [facility]; [facility] Work Phone: Instructions* Name Dates Details Patient Instructions Indication:Nonsmoker Start:20-Nov-2021 Instruction Type:Provider Instructions for Treatment How to Access Health Informa tion Online using Patient Portal and [employer]rd [employer] Apps Indication:Nonsmoker Start:20-Nov-2021 Instruction Type:Patient Education Patient Instructions Indication:Nonsmoker Start:04-Oct-2020 Instruction Type:Provider Instructions for Treatment How to Access Health Informa tion Online using Patient Portal and [employer]rd [employer] Apps Indication:Nonsmoker Start:04-Oct-2020 Instruction Type:Patient Education Patient Instructions Indication:Post-menopausal Start:16-Aug-2020 Instruction Type:Provider Instructions for Treatment How to Access Health Informa tion Online using Patient Portal and [employer]rd [employer] Apps Indication:Nonsmoker Start:16-Aug-2020 Instruction Type:Patient Education How to access health informa tion online Indication:BMI 25.0-25.9,adult Start:23-Mar-2020 Instruction Type:Patient Education How to access health informa tion online - Detail Indication:BMI 25.0-25.9,adult Start:23-Mar-2020 Instruction Type:Patient Education Patient Instructions Indication:BMI 25.0-25.9,adult Start:23-Mar-2020 Instruction Type:Provider Instructions for Treatment How to access health informa tion online Indication:Nonsmoker Start:09-Feb-2020 Instruction Type:Patient Education How to access health informa tion online - Detail Indication:Nonsmoker Start:09-Feb-2020 Instruction Type:Patient Education Patient Instructions Indication:Vitamin D deficiency Start:09-Feb-2020 Instruction Type:Provider Instructions for Treatment How to access health informa tion online Indication:Nonsmoker Start:09-Jun-2019 Instruction Type:Patient Education How to access health informa tion online - Detail Indication:Nonsmoker Start:09-Jun-2019 Instruction Type:Patient Education Patient Instructions Indication:Nonsmoker Start:09-Jun-2019 Instruction Type:Provider Instructions for Treatment How to access health informa tion online Indication:BMI 26.0-26.9,adult Start:26-Jan-2019 Instruction Type:Patient Education How to access health informa tion online - Detail Indication:BMI 26.0-26.9,adult Start:26-Jan-2019 Instruction Type:Patient Education Patient Instructions Indication:Nonsmoker Start:26-Jan-2019 Instruction Type:Provider Instructions for Treatment How to access health informa tion online Indication:Nonsmoker Start:29-Oct-2018 Instruction Type:Patient Education How to access health informa tion online - Detail Indication:Nonsmoker Start:29-Oct-2018 Instruction Type:Patient Education Patient Instructions Indication:Nonsmoker Start:29-Oct-2018 Instruction Type:Provider Instructions for Treatment How to access health informa tion online Indication:Nonsmoker Start:08-Oct-2018 Instruction Type:Patient Education How to access health informa tion online - Detail Indication:Nonsmoker Start:08-Oct-2018 Instruction Type:Patient Education Patient Instructions Indication:BMI 27.0-27.9,adult Start:08-Oct-2018 Instruction Type:Provider Instructions for Treatment How to access health informa tion online Indication:Nonsmoker Start:24-Sep-2018 Instruction Type:Patient Education How to access health informa tion online - Detail Indication:Nonsmoker Start:24-Sep-2018 Instruction Type:Patient Education Patient Instructions Indication:Nonsmoker Start:24-Sep-2018 Instruction Type:Provider Instructions for Treatment How to access health informa tion online Indication:Hypothyroidism Start:05-Jul-2017 Instruction Type:Patient Education How to access health informa tion online - Detail Indication:Hypothyroidism Start:05-Jul-2017 Instruction Type:Patient Education Patient Instructions Indication:Nonsmoker Start:05-Jul-2017 Instruction Type:Provider Instructions for Treatment How to access health informa tion online Indication:Post-menopausal Start:05-Apr-2016 Instruction Type:Patient Education How to access health informa tion online - Detail Indication:Post-menopausal Start:05-Apr-2016 Instruction Type:Patient Education Patient Instructions Indication:Post-menopausal Start:05-Apr-2016 Instruction Type:Provider Instructions for Treatment How to access health informa tion online Indication:Cough Start:05-May-2015 Instruction Type:Patient Education How to access health informa tion online - Detail Indication:Cough Start:05-May-2015 Instruction Type:Patient Education Patient Instructions Indication:Cough Start:05-May-2015 Instruction Type:Provider Instructions for Treatment Patient Instructions Indication:Cough Start:05-May-2015 Instruction Type:Provider Instructions for Treatment How to access health informa tion online Indication:Pain in unspecified joint Start:15-Mar-2015 Instruction Type:Patient Education How to access health informa tion online - Detail Indication:Pain in unspecified joint Start:15-Mar-2015 Instruction Type:Patient Education Patient Instructions Indication:Pain in unspecified joint Start:15-Mar-2015 Instruction Type:Provider Instructions for Treatment Patient Instructions Indication:Hypothyroidism Start:28-Feb-2015 Instruction Type:Provider Instructions for Treatment Patient Instructions Indication:Acute sinusitis, unspecified Start:19-Oct-2013 Instruction Type:Provider Instructions for Treatment [facility]; [facility] Work Phone: Instructions* Name Dates Details How to Access Health Informa tion Online using Patient Portal and [employer]rd [employer] Apps Indication:BMI 26.0-26.9,adult Start:29-Jun-2022 Instruction Type:Patient Education Patient Instructions Indication:BMI 26.0-26.9,adult Start:29-Jun-2022 Instruction Type:Provider Instructions for Treatment Patient Instructions Indication:Nonsmoker Start:20-Nov-2021 Instruction Type:Provider Instructions for Treatment How to Access Health Informa tion Online using Patient Portal and [employer]rd [employer] Apps Indication:Nonsmoker Start:20-Nov-2021 Instruction Type:Patient Education Patient Instructions Indication:Nonsmoker Start:04-Oct-2020 Instruction Type:Provider Instructions for Treatment How to Access Health Informa tion Online using Patient Portal and [employer]rd [employer] Apps Indication:Nonsmoker Start:04-Oct-2020 Instruction Type:Patient Education Patient Instructions Indication:Post-menopausal Start:16-Aug-2020 Instruction Type:Provider Instructions for Treatment How to Access Health Informa tion Online using Patient Portal and [employer]rd [employer] Apps Indication:Nonsmoker Start:16-Aug-2020 Instruction Type:Patient Education How to access health informa tion online Indication:BMI 25.0-25.9,adult Start:23-Mar-2020 Instruction Type:Patient Education How to access health informa tion online - Detail Indication:BMI 25.0-25.9,adult Start:23-Mar-2020 Instruction Type:Patient Education Patient Instructions Indication:BMI 25.0-25.9,adult Start:23-Mar-2020 Instruction Type:Provider Instructions for Treatment How to access health informa tion online Indication:Nonsmoker Start:09-Feb-2020 Instruction Type:Patient Education How to access health informa tion online - Detail Indication:Nonsmoker Start:09-Feb-2020 Instruction Type:Patient Education Patient Instructions Indication:Vitamin D deficiency Start:09-Feb-2020 Instruction Type:Provider Instructions for Treatment How to access health informa tion online Indication:Nonsmoker Start:09-Jun-2019 Instruction Type:Patient Education How to access health informa tion online - Detail Indication:Nonsmoker Start:09-Jun-2019 Instruction Type:Patient Education Patient Instructions Indication:Nonsmoker Start:09-Jun-2019 Instruction Type:Provider Instructions for Treatment How to access health informa tion online Indication:BMI 26.0-26.9,adult Start:26-Jan-2019 Instruction Type:Patient Education How to access health informa tion online - Detail Indication:BMI 26.0-26.9,adult Start:26-Jan-2019 Instruction Type:Patient Education Patient Instructions Indication:Nonsmoker Start:26-Jan-2019 Instruction Type:Provider Instructions for Treatment How to access health informa tion online Indication:Nonsmoker Start:29-Oct-2018 Instruction Type:Patient Education How to access health informa tion online - Detail Indication:Nonsmoker Start:29-Oct-2018 Instruction Type:Patient Education Patient Instructions Indication:Nonsmoker Start:29-Oct-2018 Instruction Type:Provider Instructions for Treatment How to access health informa tion online Indication:Nonsmoker Start:08-Oct-2018 Instruction Type:Patient Education How to access health informa tion online - Detail Indication:Nonsmoker Start:08-Oct-2018 Instruction Type:Patient Education Patient Instructions Indication:BMI 27.0-27.9,adult Start:08-Oct-2018 Instruction Type:Provider Instructions for Treatment How to access health informa tion online Indication:Nonsmoker Start:24-Sep-2018 Instruction Type:Patient Education How to access health informa tion online - Detail Indication:Nonsmoker Start:24-Sep-2018 Instruction Type:Patient Education Patient Instructions Indication:Nonsmoker Start:24-Sep-2018 Instruction Type:Provider Instructions for Treatment How to access health informa tion online Indication:Hypothyroidism Start:05-Jul-2017 Instruction Type:Patient Education How to access health informa tion online - Detail Indication:Hypothyroidism Start:05-Jul-2017 Instruction Type:Patient Education Patient Instructions Indication:Nonsmoker Start:05-Jul-2017 Instruction Type:Provider Instructions for Treatment How to access health informa tion online Indication:Post-menopausal Start:05-Apr-2016 Instruction Type:Patient Education How to access health informa tion online - Detail Indication:Post-menopausal Start:05-Apr-2016 Instruction Type:Patient Education Patient Instructions Indication:Post-menopausal Start:05-Apr-2016 Instruction Type:Provider Instructions for Treatment How to access health informa tion online Indication:Cough Start:05-May-2015 Instruction Type:Patient Education How to access health informa tion online - Detail Indication:Cough Start:05-May-2015 Instruction Type:Patient Education Patient Instructions Indication:Cough Start:05-May-2015 Instruction Type:Provider Instructions for Treatment Patient Instructions Indication:Cough Start:05-May-2015 Instruction Type:Provider Instructions for Treatment How to access health informa tion online Indication:Pain in unspecified joint Start:15-Mar-2015 Instruction Type:Patient Education How to access health informa tion online - Detail Indication:Pain in unspecified joint Start:15-Mar-2015 Instruction Type:Patient Education Patient Instructions Indication:Pain in unspecified joint Start:15-Mar-2015 Instruction Type:Provider Instructions for Treatment Patient Instructions Indication:Hypothyroidism Start:28-Feb-2015 Instruction Type:Provider Instructions for Treatment Patient Instructions Indication:Acute sinusitis, unspecified Start:19-Oct-2013 Instruction Type:Provider Instructions for Treatment [facility]; [facility] Work Phone: Instructions* Name Dates Details How to Access Health Informa tion Online using Patient Portal and [employer]rd [employer] Apps Indication:BMI 26.0-26.9,adult Start:29-Jun-2022 Instruction Type:Patient Education Patient Instructions Indication:BMI 26.0-26.9,adult Start:29-Jun-2022 Instruction Type:Provider Instructions for Treatment Patient Instructions Indication:Nonsmoker Start:20-Nov-2021 Instruction Type:Provider Instructions for Treatment How to Access Health Informa tion Online using Patient Portal and [employer]rd [employer] Apps Indication:Nonsmoker Start:20-Nov-2021 Instruction Type:Patient Education Patient Instructions Indication:Nonsmoker Start:04-Oct-2020 Instruction Type:Provider Instructions for Treatment How to Access Health Informa tion Online using Patient Portal and [employer]rd [employer] Apps Indication:Nonsmoker Start:04-Oct-2020 Instruction Type:Patient Education Patient Instructions Indication:Post-menopausal Start:16-Aug-2020 Instruction Type:Provider Instructions for Treatment How to Access Health Informa tion Online using Patient Portal and [employer]rd [employer] Apps Indication:Nonsmoker Start:16-Aug-2020 Instruction Type:Patient Education How to access health informa tion online Indication:BMI 25.0-25.9,adult Start:23-Mar-2020 Instruction Type:Patient Education How to access health informa tion online - Detail Indication:BMI 25.0-25.9,adult Start:23-Mar-2020 Instruction Type:Patient Education Patient Instructions Indication:BMI 25.0-25.9,adult Start:23-Mar-2020 Instruction Type:Provider Instructions for Treatment How to access health informa tion online Indication:Nonsmoker Start:09-Feb-2020 Instruction Type:Patient Education How to access health informa tion online - Detail Indication:Nonsmoker Start:09-Feb-2020 Instruction Type:Patient Education Patient Instructions Indication:Vitamin D deficiency Start:09-Feb-2020 Instruction Type:Provider Instructions for Treatment How to access health informa tion online Indication:Nonsmoker Start:09-Jun-2019 Instruction Type:Patient Education How to access health informa tion online - Detail Indication:Nonsmoker Start:09-Jun-2019 Instruction Type:Patient Education Patient Instructions Indication:Nonsmoker Start:09-Jun-2019 Instruction Type:Provider Instructions for Treatment How to access health informa tion online Indication:BMI 26.0-26.9,adult Start:26-Jan-2019 Instruction Type:Patient Education How to access health informa tion online - Detail Indication:BMI 26.0-26.9,adult Start:26-Jan-2019 Instruction Type:Patient Education Patient Instructions Indication:Nonsmoker Start:26-Jan-2019 Instruction Type:Provider Instructions for Treatment How to access health informa tion online Indication:Nonsmoker Start:29-Oct-2018 Instruction Type:Patient Education How to access health informa tion online - Detail Indication:Nonsmoker Start:29-Oct-2018 Instruction Type:Patient Education Patient Instructions Indication:Nonsmoker Start:29-Oct-2018 Instruction Type:Provider Instructions for Treatment How to access health informa tion online Indication:Nonsmoker Start:08-Oct-2018 Instruction Type:Patient Education How to access health informa tion online - Detail Indication:Nonsmoker Start:08-Oct-2018 Instruction Type:Patient Education Patient Instructions Indication:BMI 27.0-27.9,adult Start:08-Oct-2018 Instruction Type:Provider Instructions for Treatment How to access health informa tion online Indication:Nonsmoker Start:24-Sep-2018 Instruction Type:Patient Education How to access health informa tion online - Detail Indication:Nonsmoker Start:24-Sep-2018 Instruction Type:Patient Education Patient Instructions Indication:Nonsmoker Start:24-Sep-2018 Instruction Type:Provider Instructions for Treatment How to access health informa tion online Indication:Hypothyroidism Start:05-Jul-2017 Instruction Type:Patient Education How to access health informa tion online - Detail Indication:Hypothyroidism Start:05-Jul-2017 Instruction Type:Patient Education Patient Instructions Indication:Nonsmoker Start:05-Jul-2017 Instruction Type:Provider Instructions for Treatment How to access health informa tion online Indication:Post-menopausal Start:05-Apr-2016 Instruction Type:Patient Education How to access health informa tion online - Detail Indication:Post-menopausal Start:05-Apr-2016 Instruction Type:Patient Education Patient Instructions Indication:Post-menopausal Start:05-Apr-2016 Instruction Type:Provider Instructions for Treatment How to access health informa tion online Indication:Cough Start:05-May-2015 Instruction Type:Patient Education How to access health informa tion online - Detail Indication:Cough Start:05-May-2015 Instruction Type:Patient Education Patient Instructions Indication:Cough Start:05-May-2015 Instruction Type:Provider Instructions for Treatment Patient Instructions Indication:Cough Start:05-May-2015 Instruction Type:Provider Instructions for Treatment How to access health informa tion online Indication:Pain in unspecified joint Start:15-Mar-2015 Instruction Type:Patient Education How to access health informa tion online - Detail Indication:Pain in unspecified joint Start:15-Mar-2015 Instruction Type:Patient Education Patient Instructions Indication:Pain in unspecified joint Start:15-Mar-2015 Instruction Type:Provider Instructions for Treatment Patient Instructions Indication:Hypothyroidism Start:28-Feb-2015 Instruction Type:Provider Instructions for Treatment Patient Instructions Indication:Acute sinusitis, unspecified Start:19-Oct-2013 Instruction Type:Provider Instructions for Treatment [facility]; [facility] Work Phone: Instructions* Name Dates Details How to Access Health Informa tion Online using Patient Portal and [employer] Apps Indication:BMI 26.0-26.9,adult Start:29-Jun-2022 Instruction Type:Patient Education Patient Instructions Indication:BMI 26.0-26.9,adult Start:29-Jun-2022 Instruction Type:Provider Instructions for Treatment Patient Instructions Indication:Nonsmoker Start:20-Nov-2021 Instruction Type:Provider Instructions for Treatment How to Access Health Informa tion Online using Patient Portal and [employer]rd [employer] Apps Indication:Nonsmoker Start:20-Nov-2021 Instruction Type:Patient Education Patient Instructions Indication:Nonsmoker Start:04-Oct-2020 Instruction Type:Provider Instructions for Treatment How to Access Health Informa tion Online using Patient Portal and [employer]rd [employer] Apps Indication:Nonsmoker Start:04-Oct-2020 Instruction Type:Patient Education Patient Instructions Indication:Post-menopausal Start:16-Aug-2020 Instruction Type:Provider Instructions for Treatment How to Access Health Informa tion Online using Patient Portal and [employer]rd [employer] Apps Indication:Nonsmoker Start:16-Aug-2020 Instruction Type:Patient Education How to access health informa tion online Indication:BMI 25.0-25.9,adult Start:23-Mar-2020 Instruction Type:Patient Education How to access health informa tion online - Detail Indication:BMI 25.0-25.9,adult Start:23-Mar-2020 Instruction Type:Patient Education Patient Instructions Indication:BMI 25.0-25.9,adult Start:23-Mar-2020 Instruction Type:Provider Instructions for Treatment How to access health informa tion online Indication:Nonsmoker Start:09-Feb-2020 Instruction Type:Patient Education How to access health informa tion online - Detail Indication:Nonsmoker Start:09-Feb-2020 Instruction Type:Patient Education Patient Instructions Indication:Vitamin D deficiency Start:09-Feb-2020 Instruction Type:Provider Instructions for Treatment How to access health informa tion online Indication:Nonsmoker Start:09-Jun-2019 Instruction Type:Patient Education How to access health informa tion online - Detail Indication:Nonsmoker Start:09-Jun-2019 Instruction Type:Patient Education Patient Instructions Indication:Nonsmoker Start:09-Jun-2019 Instruction Type:Provider Instructions for Treatment How to access health informa tion online Indication:BMI 26.0-26.9,adult Start:26-Jan-2019 Instruction Type:Patient Education How to access health informa tion online - Detail Indication:BMI 26.0-26.9,adult Start:26-Jan-2019 Instruction Type:Patient Education Patient Instructions Indication:Nonsmoker Start:26-Jan-2019 Instruction Type:Provider Instructions for Treatment How to access health informa tion online Indication:Nonsmoker Start:29-Oct-2018 Instruction Type:Patient Education How to access health informa tion online - Detail Indication:Nonsmoker Start:29-Oct-2018 Instruction Type:Patient Education Patient Instructions Indication:Nonsmoker Start:29-Oct-2018 Instruction Type:Provider Instructions for Treatment How to access health informa tion online Indication:Nonsmoker Start:08-Oct-2018 Instruction Type:Patient Education How to access health informa tion online - Detail Indication:Nonsmoker Start:08-Oct-2018 Instruction Type:Patient Education Patient Instructions Indication:BMI 27.0-27.9,adult Start:08-Oct-2018 Instruction Type:Provider Instructions for Treatment How to access health informa tion online Indication:Nonsmoker Start:24-Sep-2018 Instruction Type:Patient Education How to access health informa tion online - Detail Indication:Nonsmoker Start:24-Sep-2018 Instruction Type:Patient Education Patient Instructions Indication:Nonsmoker Start:24-Sep-2018 Instruction Type:Provider Instructions for Treatment How to access health informa tion online Indication:Hypothyroidism Start:05-Jul-2017 Instruction Type:Patient Education How to access health informa tion online - Detail Indication:Hypothyroidism Start:05-Jul-2017 Instruction Type:Patient Education Patient Instructions Indication:Nonsmoker Start:05-Jul-2017 Instruction Type:Provider Instructions for Treatment How to access health informa tion online Indication:Post-menopausal Start:05-Apr-2016 Instruction Type:Patient Education How to access health informa tion online - Detail Indication:Post-menopausal Start:05-Apr-2016 Instruction Type:Patient Education Patient Instructions Indication:Post-menopausal Start:05-Apr-2016 Instruction Type:Provider Instructions for Treatment How to access health informa tion online Indication:Cough Start:05-May-2015 Instruction Type:Patient Education How to access health informa tion online - Detail Indication:Cough Start:05-May-2015 Instruction Type:Patient Education Patient Instructions Indication:Cough Start:05-May-2015 Instruction Type:Provider Instructions for Treatment Patient Instructions Indication:Cough Start:05-May-2015 Instruction Type:Provider Instructions for Treatment How to access health informa tion online Indication:Pain in unspecified joint Start:15-Mar-2015 Instruction Type:Patient Education How to access health informa tion online - Detail Indication:Pain in unspecified joint Start:15-Mar-2015 Instruction Type:Patient Education Patient Instructions Indication:Pain in unspecified joint Start:15-Mar-2015 Instruction Type:Provider Instructions for Treatment Patient Instructions Indication:Hypothyroidism Start:28-Feb-2015 Instruction Type:Provider Instructions for Treatment Patient Instructions Indication:Acute sinusitis, unspecified Start:19-Oct-2013 Instruction Type:Provider Instructions for Treatment [facility]; [facility] Work Phone: Instructions* Name Dates Details Patient Instructions Indication:Nonsmoker Start:11-Oct-2022 Instruction Type:Provider Instructions for Treatment How to Access Health Informa tion Online using Patient Portal and [employer]rd [employer] Apps Indication:Nonsmoker Start:11-Oct-2022 Instruction Type:Patient Education How to Access Health Informa tion Online using Patient Portal and [employer]rd [employer] Apps Indication:BMI 26.0-26.9,adult Start:29-Jun-2022 Instruction Type:Patient Education Patient Instructions Indication:BMI 26.0-26.9,adult Start:29-Jun-2022 Instruction Type:Provider Instructions for Treatment Patient Instructions Indication:Nonsmoker Start:20-Nov-2021 Instruction Type:Provider Instructions for Treatment How to Access Health Informa tion Online using Patient Portal and [employer]rd [employer] Apps Indication:Nonsmoker Start:20-Nov-2021 Instruction Type:Patient Education Patient Instructions Indication:Nonsmoker Start:04-Oct-2020 Instruction Type:Provider Instructions for Treatment How to Access Health Informa tion Online using Patient Portal and [employer]rd [employer] Apps Indication:Nonsmoker Start:04-Oct-2020 Instruction Type:Patient Education Patient Instructions Indication:Post-menopausal Start:16-Aug-2020 Instruction Type:Provider Instructions for Treatment How to Access Health Informa tion Online using Patient Portal and [employer]rd [employer] Apps Indication:Nonsmoker Start:16-Aug-2020 Instruction Type:Patient Education How to access health informa tion online Indication:BMI 25.0-25.9,adult Start:23-Mar-2020 Instruction Type:Patient Education How to access health informa tion online - Detail Indication:BMI 25.0-25.9,adult Start:23-Mar-2020 Instruction Type:Patient Education Patient Instructions Indication:BMI 25.0-25.9,adult Start:23-Mar-2020 Instruction Type:Provider Instructions for Treatment How to access health informa tion online Indication:Nonsmoker Start:09-Feb-2020 Instruction Type:Patient Education How to access health informa tion online - Detail Indication:Nonsmoker Start:09-Feb-2020 Instruction Type:Patient Education Patient Instructions Indication:Vitamin D deficiency Start:09-Feb-2020 Instruction Type:Provider Instructions for Treatment How to access health informa tion online Indication:Nonsmoker Start:09-Jun-2019 Instruction Type:Patient Education How to access health informa tion online - Detail Indication:Nonsmoker Start:09-Jun-2019 Instruction Type:Patient Education Patient Instructions Indication:Nonsmoker Start:09-Jun-2019 Instruction Type:Provider Instructions for Treatment How to access health informa tion online Indication:BMI 26.0-26.9,adult Start:26-Jan-2019 Instruction Type:Patient Education How to access health informa tion online - Detail Indication:BMI 26.0-26.9,adult Start:26-Jan-2019 Instruction Type:Patient Education Patient Instructions Indication:Nonsmoker Start:26-Jan-2019 Instruction Type:Provider Instructions for Treatment How to access health informa tion online Indication:Nonsmoker Start:29-Oct-2018 Instruction Type:Patient Education How to access health informa tion online - Detail Indication:Nonsmoker Start:29-Oct-2018 Instruction Type:Patient Education Patient Instructions Indication:Nonsmoker Start:29-Oct-2018 Instruction Type:Provider Instructions for Treatment How to access health informa tion online Indication:Nonsmoker Start:08-Oct-2018 Instruction Type:Patient Education How to access health informa tion online - Detail Indication:Nonsmoker Start:08-Oct-2018 Instruction Type:Patient Education Patient Instructions Indication:BMI 27.0-27.9,adult Start:08-Oct-2018 Instruction Type:Provider Instructions for Treatment How to access health informa tion online Indication:Nonsmoker Start:24-Sep-2018 Instruction Type:Patient Education How to access health informa tion online - Detail Indication:Nonsmoker Start:24-Sep-2018 Instruction Type:Patient Education Patient Instructions Indication:Nonsmoker Start:24-Sep-2018 Instruction Type:Provider Instructions for Treatment How to access health informa tion online Indication:Hypothyroidism Start:05-Jul-2017 Instruction Type:Patient Education How to access health informa tion online - Detail Indication:Hypothyroidism Start:05-Jul-2017 Instruction Type:Patient Education Patient Instructions Indication:Nonsmoker Start:05-Jul-2017 Instruction Type:Provider Instructions for Treatment How to access health informa tion online Indication:Post-menopausal Start:05-Apr-2016 Instruction Type:Patient Education How to access health informa tion online - Detail Indication:Post-menopausal Start:05-Apr-2016 Instruction Type:Patient Education Patient Instructions Indication:Post-menopausal Start:05-Apr-2016 Instruction Type:Provider Instructions for Treatment How to access health informa tion online Indication:Cough Start:05-May-2015 Instruction Type:Patient Education How to access health informa tion online - Detail Indication:Cough Start:05-May-2015 Instruction Type:Patient Education Patient Instructions Indication:Cough Start:05-May-2015 Instruction Type:Provider Instructions for Treatment Patient Instructions Indication:Cough Start:05-May-2015 Instruction Type:Provider Instructions for Treatment How to access health informa tion online Indication:Pain in unspecified joint Start:15-Mar-2015 Instruction Type:Patient Education How to access health informa tion online - Detail Indication:Pain in unspecified joint Start:15-Mar-2015 Instruction Type:Patient Education Patient Instructions Indication:Pain in unspecified joint Start:15-Mar-2015 Instruction Type:Provider Instructions for Treatment Patient Instructions Indication:Hypothyroidism Start:28-Feb-2015 Instruction Type:Provider Instructions for Treatment Patient Instructions Indication:Acute sinusitis, unspecified Start:19-Oct-2013 Instruction Type:Provider Instructions for Treatment [facility]; [facility] Work Phone: Instructions* Name Dates Details Patient Instructions Indication:Nonsmoker Start:11-Oct-2022 Instruction Type:Provider Instructions for Treatment How to Access Health Informa tion Online using Patient Portal and [employer]rd [employer] Apps Indication:Nonsmoker Start:11-Oct-2022 Instruction Type:Patient Education How to Access Health Informa tion Online using Patient Portal and [employer]rd [employer] Apps Indication:BMI 26.0-26.9,adult Start:29-Jun-2022 Instruction Type:Patient Education Patient Instructions Indication:BMI 26.0-26.9,adult Start:29-Jun-2022 Instruction Type:Provider Instructions for Treatment Patient Instructions Indication:Nonsmoker Start:20-Nov-2021 Instruction Type:Provider Instructions for Treatment How to Access Health Informa tion Online using Patient Portal and [employer]rd [employer] Apps Indication:Nonsmoker Start:20-Nov-2021 Instruction Type:Patient Education Patient Instructions Indication:Nonsmoker Start:04-Oct-2020 Instruction Type:Provider Instructions for Treatment How to Access Health Informa tion Online using Patient Portal and [employer]rd [employer] Apps Indication:Nonsmoker Start:04-Oct-2020 Instruction Type:Patient Education Patient Instructions Indication:Post-menopausal Start:16-Aug-2020 Instruction Type:Provider Instructions for Treatment How to Access Health Informa tion Online using Patient Portal and [employer]rd [employer] Apps Indication:Nonsmoker Start:16-Aug-2020 Instruction Type:Patient Education How to access health informa tion online Indication:BMI 25.0-25.9,adult Start:23-Mar-2020 Instruction Type:Patient Education How to access health informa tion online - Detail Indication:BMI 25.0-25.9,adult Start:23-Mar-2020 Instruction Type:Patient Education Patient Instructions Indication:BMI 25.0-25.9,adult Start:23-Mar-2020 Instruction Type:Provider Instructions for Treatment How to access health informa tion online Indication:Nonsmoker Start:09-Feb-2020 Instruction Type:Patient Education How to access health informa tion online - Detail Indication:Nonsmoker Start:09-Feb-2020 Instruction Type:Patient Education Patient Instructions Indication:Vitamin D deficiency Start:09-Feb-2020 Instruction Type:Provider Instructions for Treatment How to access health informa tion online Indication:Nonsmoker Start:09-Jun-2019 Instruction Type:Patient Education How to access health informa tion online - Detail Indication:Nonsmoker Start:09-Jun-2019 Instruction Type:Patient Education Patient Instructions Indication:Nonsmoker Start:09-Jun-2019 Instruction Type:Provider Instructions for Treatment How to access health informa tion online Indication:BMI 26.0-26.9,adult Start:26-Jan-2019 Instruction Type:Patient Education How to access health informa tion online - Detail Indication:BMI 26.0-26.9,adult Start:26-Jan-2019 Instruction Type:Patient Education Patient Instructions Indication:Nonsmoker Start:26-Jan-2019 Instruction Type:Provider Instructions for Treatment How to access health informa tion online Indication:Nonsmoker Start:29-Oct-2018 Instruction Type:Patient Education How to access health informa tion online - Detail Indication:Nonsmoker Start:29-Oct-2018 Instruction Type:Patient Education Patient Instructions Indication:Nonsmoker Start:29-Oct-2018 Instruction Type:Provider Instructions for Treatment How to access health informa tion online Indication:Nonsmoker Start:08-Oct-2018 Instruction Type:Patient Education How to access health informa tion online - Detail Indication:Nonsmoker Start:08-Oct-2018 Instruction Type:Patient Education Patient Instructions Indication:BMI 27.0-27.9,adult Start:08-Oct-2018 Instruction Type:Provider Instructions for Treatment How to access health informa tion online Indication:Nonsmoker Start:24-Sep-2018 Instruction Type:Patient Education How to access health informa tion online - Detail Indication:Nonsmoker Start:24-Sep-2018 Instruction Type:Patient Education Patient Instructions Indication:Nonsmoker Start:24-Sep-2018 Instruction Type:Provider Instructions for Treatment How to access health informa tion online Indication:Hypothyroidism Start:05-Jul-2017 Instruction Type:Patient Education How to access health informa tion online - Detail Indication:Hypothyroidism Start:05-Jul-2017 Instruction Type:Patient Education Patient Instructions Indication:Nonsmoker Start:05-Jul-2017 Instruction Type:Provider Instructions for Treatment How to access health informa tion online Indication:Post-menopausal Start:05-Apr-2016 Instruction Type:Patient Education How to access health informa tion online - Detail Indication:Post-menopausal Start:05-Apr-2016 Instruction Type:Patient Education Patient Instructions Indication:Post-menopausal Start:05-Apr-2016 Instruction Type:Provider Instructions for Treatment How to access health informa tion online Indication:Cough Start:05-May-2015 Instruction Type:Patient Education How to access health informa tion online - Detail Indication:Cough Start:05-May-2015 Instruction Type:Patient Education Patient Instructions Indication:Cough Start:05-May-2015 Instruction Type:Provider Instructions for Treatment Patient Instructions Indication:Cough Start:05-May-2015 Instruction Type:Provider Instructions for Treatment How to access health informa tion online Indication:Pain in unspecified joint Start:15-Mar-2015 Instruction Type:Patient Education How to access health informa tion online - Detail Indication:Pain in unspecified joint Start:15-Mar-2015 Instruction Type:Patient Education Patient Instructions Indication:Pain in unspecified joint Start:15-Mar-2015 Instruction Type:Provider Instructions for Treatment Patient Instructions Indication:Hypothyroidism Start:28-Feb-2015 Instruction Type:Provider Instructions for Treatment Patient Instructions Indication:Acute sinusitis, unspecified Start:19-Oct-2013 Instruction Type:Provider Instructions for Treatment [facility]; [facility] Work Phone: Instructions* Name Dates Details Patient Instructions Indication:BMI 26.0-26.9,adult Start:28-Dec-2022 Instruction Type:Provider Instructions for Treatment How to Access Health Informa tion Online using Patient Portal and [employer]rd [employer] Apps Indication:BMI 26.0-26.9,adult Start:28-Dec-2022 Instruction Type:Patient Education Patient Instructions Indication:Nonsmoker Start:11-Oct-2022 Instruction Type:Provider Instructions for Treatment How to Access Health Informa tion Online using Patient Portal and [employer]rd [employer] Apps Indication:Nonsmoker Start:11-Oct-2022 Instruction Type:Patient Education How to Access Health Informa tion Online using Patient Portal and [employer]rd [employer] Apps Indication:BMI 26.0-26.9,adult Start:29-Jun-2022 Instruction Type:Patient Education Patient Instructions Indication:BMI 26.0-26.9,adult Start:29-Jun-2022 Instruction Type:Provider Instructions for Treatment Patient Instructions Indication:Nonsmoker Start:20-Nov-2021 Instruction Type:Provider Instructions for Treatment How to Access Health Informa tion Online using Patient Portal and [employer]rd [employer] Apps Indication:Nonsmoker Start:20-Nov-2021 Instruction Type:Patient Education Patient Instructions Indication:Nonsmoker Start:04-Oct-2020 Instruction Type:Provider Instructions for Treatment How to Access Health Informa tion Online using Patient Portal and [employer]rd [employer] Apps Indication:Nonsmoker Start:04-Oct-2020 Instruction Type:Patient Education Patient Instructions Indication:Post-menopausal Start:16-Aug-2020 Instruction Type:Provider Instructions for Treatment How to Access Health Informa tion Online using Patient Portal and [employer]rd [employer] Apps Indication:Nonsmoker Start:16-Aug-2020 Instruction Type:Patient Education How to access health informa tion online Indication:BMI 25.0-25.9,adult Start:23-Mar-2020 Instruction Type:Patient Education How to access health informa tion online - Detail Indication:BMI 25.0-25.9,adult Start:23-Mar-2020 Instruction Type:Patient Education Patient Instructions Indication:BMI 25.0-25.9,adult Start:23-Mar-2020 Instruction Type:Provider Instructions for Treatment How to access health informa tion online Indication:Nonsmoker Start:09-Feb-2020 Instruction Type:Patient Education How to access health informa tion online - Detail Indication:Nonsmoker Start:09-Feb-2020 Instruction Type:Patient Education Patient Instructions Indication:Vitamin D deficiency Start:09-Feb-2020 Instruction Type:Provider Instructions for Treatment How to access health informa tion online Indication:Nonsmoker Start:09-Jun-2019 Instruction Type:Patient Education How to access health informa tion online - Detail Indication:Nonsmoker Start:09-Jun-2019 Instruction Type:Patient Education Patient Instructions Indication:Nonsmoker Start:09-Jun-2019 Instruction Type:Provider Instructions for Treatment How to access health informa tion online Indication:BMI 26.0-26.9,adult Start:26-Jan-2019 Instruction Type:Patient Education How to access health informa tion online - Detail Indication:BMI 26.0-26.9,adult Start:26-Jan-2019 Instruction Type:Patient Education Patient Instructions Indication:Nonsmoker Start:26-Jan-2019 Instruction Type:Provider Instructions for Treatment How to access health informa tion online Indication:Nonsmoker Start:29-Oct-2018 Instruction Type:Patient Education How to access health informa tion online - Detail Indication:Nonsmoker Start:29-Oct-2018 Instruction Type:Patient Education Patient Instructions Indication:Nonsmoker Start:29-Oct-2018 Instruction Type:Provider Instructions for Treatment How to access health informa tion online Indication:Nonsmoker Start:08-Oct-2018 Instruction Type:Patient Education How to access health informa tion online - Detail Indication:Nonsmoker Start:08-Oct-2018 Instruction Type:Patient Education Patient Instructions Indication:BMI 27.0-27.9,adult Start:08-Oct-2018 Instruction Type:Provider Instructions for Treatment How to access health informa tion online Indication:Nonsmoker Start:24-Sep-2018 Instruction Type:Patient Education How to access health informa tion online - Detail Indication:Nonsmoker Start:24-Sep-2018 Instruction Type:Patient Education Patient Instructions Indication:Nonsmoker Start:24-Sep-2018 Instruction Type:Provider Instructions for Treatment How to access health informa tion online Indication:Hypothyroidism Start:05-Jul-2017 Instruction Type:Patient Education How to access health informa tion online - Detail Indication:Hypothyroidism Start:05-Jul-2017 Instruction Type:Patient Education Patient Instructions Indication:Nonsmoker Start:05-Jul-2017 Instruction Type:Provider Instructions for Treatment How to access health informa tion online Indication:Post-menopausal Start:05-Apr-2016 Instruction Type:Patient Education How to access health informa tion online - Detail Indication:Post-menopausal Start:05-Apr-2016 Instruction Type:Patient Education Patient Instructions Indication:Post-menopausal Start:05-Apr-2016 Instruction Type:Provider Instructions for Treatment How to access health informa tion online Indication:Cough Start:05-May-2015 Instruction Type:Patient Education How to access health informa tion online - Detail Indication:Cough Start:05-May-2015 Instruction Type:Patient Education Patient Instructions Indication:Cough Start:05-May-2015 Instruction Type:Provider Instructions for Treatment Patient Instructions Indication:Cough Start:05-May-2015 Instruction Type:Provider Instructions for Treatment How to access health informa tion online Indication:Pain in unspecified joint Start:15-Mar-2015 Instruction Type:Patient Education How to access health informa tion online - Detail Indication:Pain in unspecified joint Start:15-Mar-2015 Instruction Type:Patient Education Patient Instructions Indication:Pain in unspecified joint Start:15-Mar-2015 Instruction Type:Provider Instructions for Treatment Patient Instructions Indication:Hypothyroidism Start:28-Feb-2015 Instruction Type:Provider Instructions for Treatment Patient Instructions Indication:Acute sinusitis, unspecified Start:19-Oct-2013 Instruction Type:Provider Instructions for Treatment [facility]; [facility] Work Phone: Instructions* Name Dates Details Patient Instructions Indication:BMI 26.0-26.9,adult Start:28-Dec-2022 Instruction Type:Provider Instructions for Treatment How to Access Health Informa tion Online using Patient Portal and [employer]rd [employer] Apps Indication:BMI 26.0-26.9,adult Start:28-Dec-2022 Instruction Type:Patient Education Patient Instructions Indication:Nonsmoker Start:11-Oct-2022 Instruction Type:Provider Instructions for Treatment How to Access Health Informa tion Online using Patient Portal and [employer]rd [employer] Apps Indication:Nonsmoker Start:11-Oct-2022 Instruction Type:Patient Education How to Access Health Informa tion Online using Patient Portal and [employer]rd [employer] Apps Indication:BMI 26.0-26.9,adult Start:29-Jun-2022 Instruction Type:Patient Education Patient Instructions Indication:BMI 26.0-26.9,adult Start:29-Jun-2022 Instruction Type:Provider Instructions for Treatment Patient Instructions Indication:Nonsmoker Start:20-Nov-2021 Instruction Type:Provider Instructions for Treatment How to Access Health Informa tion Online using Patient Portal and [employer]rd [employer] Apps Indication:Nonsmoker Start:20-Nov-2021 Instruction Type:Patient Education Patient Instructions Indication:Nonsmoker Start:04-Oct-2020 Instruction Type:Provider Instructions for Treatment How to Access Health Informa tion Online using Patient Portal and [employer]rd [employer] Apps Indication:Nonsmoker Start:04-Oct-2020 Instruction Type:Patient Education Patient Instructions Indication:Post-menopausal Start:16-Aug-2020 Instruction Type:Provider Instructions for Treatment How to Access Health Informa tion Online using Patient Portal and 3rd [employer] Apps Indication:Nonsmoker Start:16-Aug-2020 Instruction Type:Patient Education How to access health informa tion online Indication:BMI 25.0-25.9,adult Start:23-Mar-2020 Instruction Type:Patient Education How to access health informa tion online - Detail Indication:BMI 25.0-25.9,adult Start:23-Mar-2020 Instruction Type:Patient Education Patient Instructions Indication:BMI 25.0-25.9,adult Start:23-Mar-2020 Instruction Type:Provider Instructions for Treatment How to access health informa tion online Indication:Nonsmoker Start:09-Feb-2020 Instruction Type:Patient Education How to access health informa tion online - Detail Indication:Nonsmoker Start:09-Feb-2020 Instruction Type:Patient Education Patient Instructions Indication:Vitamin D deficiency Start:09-Feb-2020 Instruction Type:Provider Instructions for Treatment How to access health informa tion online Indication:Nonsmoker Start:09-Jun-2019 Instruction Type:Patient Education How to access health informa tion online - Detail Indication:Nonsmoker Start:09-Jun-2019 Instruction Type:Patient Education Patient Instructions Indication:Nonsmoker Start:09-Jun-2019 Instruction Type:Provider Instructions for Treatment How to access health informa tion online Indication:BMI 26.0-26.9,adult Start:26-Jan-2019 Instruction Type:Patient Education How to access health informa tion online - Detail Indication:BMI 26.0-26.9,adult Start:26-Jan-2019 Instruction Type:Patient Education Patient Instructions Indication:Nonsmoker Start:26-Jan-2019 Instruction Type:Provider Instructions for Treatment How to access health informa tion online Indication:Nonsmoker Start:29-Oct-2018 Instruction Type:Patient Education How to access health informa tion online - Detail Indication:Nonsmoker Start:29-Oct-2018 Instruction Type:Patient Education Patient Instructions Indication:Nonsmoker Start:29-Oct-2018 Instruction Type:Provider Instructions for Treatment How to access health informa tion online Indication:Nonsmoker Start:08-Oct-2018 Instruction Type:Patient Education How to access health informa tion online - Detail Indication:Nonsmoker Start:08-Oct-2018 Instruction Type:Patient Education Patient Instructions Indication:BMI 27.0-27.9,adult Start:08-Oct-2018 Instruction Type:Provider Instructions for Treatment How to access health informa tion online Indication:Nonsmoker Start:24-Sep-2018 Instruction Type:Patient Education How to access health informa tion online - Detail Indication:Nonsmoker Start:24-Sep-2018 Instruction Type:Patient Education Patient Instructions Indication:Nonsmoker Start:24-Sep-2018 Instruction Type:Provider Instructions for Treatment How to access health informa tion online Indication:Hypothyroidism Start:05-Jul-2017 Instruction Type:Patient Education How to access health informa tion online - Detail Indication:Hypothyroidism Start:05-Jul-2017 Instruction Type:Patient Education Patient Instructions Indication:Nonsmoker Start:05-Jul-2017 Instruction Type:Provider Instructions for Treatment How to access health informa tion online Indication:Post-menopausal Start:05-Apr-2016 Instruction Type:Patient Education How to access health informa tion online - Detail Indication:Post-menopausal Start:05-Apr-2016 Instruction Type:Patient Education Patient Instructions Indication:Post-menopausal Start:05-Apr-2016 Instruction Type:Provider Instructions for Treatment How to access health informa tion online Indication:Cough Start:05-May-2015 Instruction Type:Patient Education How to access health informa tion online - Detail Indication:Cough Start:05-May-2015 Instruction Type:Patient Education Patient Instructions Indication:Cough Start:05-May-2015 Instruction Type:Provider Instructions for Treatment Patient Instructions Indication:Cough Start:05-May-2015 Instruction Type:Provider Instructions for Treatment How to access health informa tion online Indication:Pain in unspecified joint Start:15-Mar-2015 Instruction Type:Patient Education How to access health informa tion online - Detail Indication:Pain in unspecified joint Start:15-Mar-2015 Instruction Type:Patient Education Patient Instructions Indication:Pain in unspecified joint Start:15-Mar-2015 Instruction Type:Provider Instructions for Treatment Patient Instructions Indication:Hypothyroidism Start:28-Feb-2015 Instruction Type:Provider Instructions for Treatment Patient Instructions Indication:Acute sinusitis, unspecified Start:19-Oct-2013 Instruction Type:Provider Instructions for Treatment [facility]; [facility] Work Phone: Instructions Name Dates Details Hypothyroidism : How to acce ss health information online Indication:Hypothyroidism Hypothyroidism : How to acce ss health information online - Detail Indication:Hypothyroidism Nonsmoker : Patient Instruct ions Indication:Nonsmoker Post-menopausal : How to acc ess health information online Indication:Post-menopausal Post-menopausal : How to acc ess health information online - Detail Indication:Post-menopausal Post-menopausal : Patient In structions Indication:Post-menopausal Cough : How to access health information online Indication:Cough Cough : How to access health information online - Detail Indication:Cough Cough : Patient Instructions Indication:Cough Pain in unspecified joint : How to access health information online Indication:Pain in unspecified joint Pain in unspecified joint : How to access health information online - Detail Indication:Pain in unspecified joint Pain in unspecified joint : Patient Instructions Indication:Pain in unspecified joint Hypothyroidism : Patient Ins tructions Indication:Hypothyroidism Acute sinusitis, unspecified : Patient Instructions Indication:Acute sinusitis, unspecified Name Dates Details Nonsmoker : How to access he alth information online Indication:Nonsmoker Nonsmoker : How to access he alth information online - Detail Indication:Nonsmoker Nonsmoker : Patient Instruct ions Indication:Nonsmoker Hypothyroidism : How to acce ss health information online Indication:Hypothyroidism Hypothyroidism : How to acce ss health information online - Detail Indication:Hypothyroidism Post-menopausal : How to acc ess health information online Indication:Post-menopausal Post-menopausal : How to acc ess health information online - Detail Indication:Post-menopausal Post-menopausal : Patient In structions Indication:Post-menopausal Cough : How to access health information online Indication:Cough Cough : How to access health information online - Detail Indication:Cough Cough : Patient Instructions Indication:Cough Pain in unspecified joint : How to access health information online Indication:Pain in unspecified joint Pain in unspecified joint : How to access health information online - Detail Indication:Pain in unspecified joint Pain in unspecified joint : Patient Instructions Indication:Pain in unspecified joint Hypothyroidism : Patient Ins tructions Indication:Hypothyroidism Acute sinusitis, unspecified : Patient Instructions Indication:Acute sinusitis, unspecified Name Dates Details Nonsmoker : How to access he alth information online Indication:Nonsmoker Nonsmoker : How to access he alth information online - Detail Indication:Nonsmoker BMI 27.0-27.9,adult : Patien t Instructions Indication:BMI 27.0-27.9,adult Nonsmoker : Patient Instruct ions Indication:Nonsmoker Hypothyroidism : How to acce ss health information online Indication:Hypothyroidism Hypothyroidism : How to acce ss health information online - Detail Indication:Hypothyroidism Post-menopausal : How to acc ess health information online Indication:Post-menopausal Post-menopausal : How to acc ess health information online - Detail Indication:Post-menopausal Post-menopausal : Patient In structions Indication:Post-menopausal Cough : How to access health information online Indication:Cough Cough : How to access health information online - Detail Indication:Cough Cough : Patient Instructions Indication:Cough Pain in unspecified joint : How to access health information online Indication:Pain in unspecified joint Pain in unspecified joint : How to access health information online - Detail Indication:Pain in unspecified joint Pain in unspecified joint : Patient Instructions Indication:Pain in unspecified joint Hypothyroidism : Patient Ins tructions Indication:Hypothyroidism Acute sinusitis, unspecified : Patient Instructions Indication:Acute sinusitis, unspecified Name Dates Details Nonsmoker : How to access he alth information online Indication:Nonsmoker Nonsmoker : How to access he alth information online - Detail Indication:Nonsmoker Nonsmoker : Patient Instruct ions Indication:Nonsmoker BMI 27.0-27.9,adult : Patien t Instructions Indication:BMI 27.0-27.9,adult Hypothyroidism : How to acce ss health information online Indication:Hypothyroidism Hypothyroidism : How to acce ss health information online - Detail Indication:Hypothyroidism Post-menopausal : How to acc ess health information online Indication:Post-menopausal Post-menopausal : How to acc ess health information online - Detail Indication:Post-menopausal Post-menopausal : Patient In structions Indication:Post-menopausal Cough : How to access health information online Indication:Cough Cough : How to access health information online - Detail Indication:Cough Cough : Patient Instructions Indication:Cough Pain in unspecified joint : How to access health information online Indication:Pain in unspecified joint Pain in unspecified joint : How to access health information online - Detail Indication:Pain in unspecified joint Pain in unspecified joint : Patient Instructions Indication:Pain in unspecified joint Hypothyroidism : Patient Ins tructions Indication:Hypothyroidism Acute sinusitis, unspecified : Patient Instructions Indication:Acute sinusitis, unspecified Name Dates Details How to access health informa tion online Indication:Nonsmoker Start:29-Oct-2018 Instruction Type:Patient Education How to access health informa tion online - Detail Indication:Nonsmoker Start:29-Oct-2018 Instruction Type:Patient Education Patient Instructions Indication:Nonsmoker Start:29-Oct-2018 Instruction Type:Provider Instructions for Treatment How to access health informa tion online Indication:Nonsmoker Start:08-Oct-2018 Instruction Type:Patient Education How to access health informa tion online - Detail Indication:Nonsmoker Start:08-Oct-2018 Instruction Type:Patient Education Patient Instructions Indication:BMI 27.0-27.9,adult Start:08-Oct-2018 Instruction Type:Provider Instructions for Treatment How to access health informa tion online Indication:Nonsmoker Start:24-Sep-2018 Instruction Type:Patient Education How to access health informa tion online - Detail Indication:Nonsmoker Start:24-Sep-2018 Instruction Type:Patient Education Patient Instructions Indication:Nonsmoker Start:24-Sep-2018 Instruction Type:Provider Instructions for Treatment How to access health informa tion online Indication:Hypothyroidism Start:05-Jul-2017 Instruction Type:Patient Education How to access health informa tion online - Detail Indication:Hypothyroidism Start:05-Jul-2017 Instruction Type:Patient Education Patient Instructions Indication:Nonsmoker Start:05-Jul-2017 Instruction Type:Provider Instructions for Treatment How to access health informa tion online Indication:Post-menopausal Start:05-Apr-2016 Instruction Type:Patient Education How to access health informa tion online - Detail Indication:Post-menopausal Start:05-Apr-2016 Instruction Type:Patient Education Patient Instructions Indication:Post-menopausal Start:05-Apr-2016 Instruction Type:Provider Instructions for Treatment How to access health informa tion online Indication:Cough Start:05-May-2015 Instruction Type:Patient Education How to access health informa tion online - Detail Indication:Cough Start:05-May-2015 Instruction Type:Patient Education Patient Instructions Indication:Cough Start:05-May-2015 Instruction Type:Provider Instructions for Treatment How to access health informa tion online Indication:Pain in unspecified joint Start:15-Mar-2015 Instruction Type:Patient Education How to access health informa tion online - Detail Indication:Pain in unspecified joint Start:15-Mar-2015 Instruction Type:Patient Education Patient Instructions Indication:Pain in unspecified joint Start:15-Mar-2015 Instruction Type:Provider Instructions for Treatment Patient Instructions Indication:Hypothyroidism Start:28-Feb-2015 Instruction Type:Provider Instructions for Treatment Patient Instructions Indication:Acute sinusitis, unspecified Start:19-Oct-2013 Instruction Type:Provider Instructions for Treatment Name Dates Details How to access health informa tion online Indication:BMI 26.0-26.9,adult Start:26-Jan-2019 Instruction Type:Patient Education How to access health informa tion online - Detail Indication:BMI 26.0-26.9,adult Start:26-Jan-2019 Instruction Type:Patient Education Patient Instructions Indication:Nonsmoker Start:26-Jan-2019 Instruction Type:Provider Instructions for Treatment How to access health informa tion online Indication:Nonsmoker Start:29-Oct-2018 Instruction Type:Patient Education How to access health informa tion online - Detail Indication:Nonsmoker Start:29-Oct-2018 Instruction Type:Patient Education Patient Instructions Indication:Nonsmoker Start:29-Oct-2018 Instruction Type:Provider Instructions for Treatment How to access health informa tion online Indication:Nonsmoker Start:08-Oct-2018 Instruction Type:Patient Education How to access health informa tion online - Detail Indication:Nonsmoker Start:08-Oct-2018 Instruction Type:Patient Education Patient Instructions Indication:BMI 27.0-27.9,adult Start:08-Oct-2018 Instruction Type:Provider Instructions for Treatment How to access health informa tion online Indication:Nonsmoker Start:24-Sep-2018 Instruction Type:Patient Education How to access health informa tion online - Detail Indication:Nonsmoker Start:24-Sep-2018 Instruction Type:Patient Education Patient Instructions Indication:Nonsmoker Start:24-Sep-2018 Instruction Type:Provider Instructions for Treatment How to access health informa tion online Indication:Hypothyroidism Start:05-Jul-2017 Instruction Type:Patient Education How to access health informa tion online - Detail Indication:Hypothyroidism Start:05-Jul-2017 Instruction Type:Patient Education Patient Instructions Indication:Nonsmoker Start:05-Jul-2017 Instruction Type:Provider Instructions for Treatment How to access health informa tion online Indication:Post-menopausal Start:05-Apr-2016 Instruction Type:Patient Education How to access health informa tion online - Detail Indication:Post-menopausal Start:05-Apr-2016 Instruction Type:Patient Education Patient Instructions Indication:Post-menopausal Start:05-Apr-2016 Instruction Type:Provider Instructions for Treatment How to access health informa tion online Indication:Cough Start:05-May-2015 Instruction Type:Patient Education How to access health informa tion online - Detail Indication:Cough Start:05-May-2015 Instruction Type:Patient Education Patient Instructions Indication:Cough Start:05-May-2015 Instruction Type:Provider Instructions for Treatment How to access health informa tion online Indication:Pain in unspecified joint Start:15-Mar-2015 Instruction Type:Patient Education How to access health informa tion online - Detail Indication:Pain in unspecified joint Start:15-Mar-2015 Instruction Type:Patient Education Patient Instructions Indication:Pain in unspecified joint Start:15-Mar-2015 Instruction Type:Provider Instructions for Treatment Patient Instructions Indication:Hypothyroidism Start:28-Feb-2015 Instruction Type:Provider Instructions for Treatment Patient Instructions Indication:Acute sinusitis, unspecified Start:19-Oct-2013 Instruction Type:Provider Instructions for Treatment Name Dates Details How to access health informa tion online Indication:BMI 26.0-26.9,adult Start:26-Jan-2019 Instruction Type:Patient Education How to access health informa tion online - Detail Indication:BMI 26.0-26.9,adult Start:26-Jan-2019 Instruction Type:Patient Education Patient Instructions Indication:Nonsmoker Start:26-Jan-2019 Instruction Type:Provider Instructions for Treatment How to access health informa tion online Indication:Nonsmoker Start:29-Oct-2018 Instruction Type:Patient Education How to access health informa tion online - Detail Indication:Nonsmoker Start:29-Oct-2018 Instruction Type:Patient Education Patient Instructions Indication:Nonsmoker Start:29-Oct-2018 Instruction Type:Provider Instructions for Treatment How to access health informa tion online Indication:Nonsmoker Start:08-Oct-2018 Instruction Type:Patient Education How to access health informa tion online - Detail Indication:Nonsmoker Start:08-Oct-2018 Instruction Type:Patient Education Patient Instructions Indication:BMI 27.0-27.9,adult Start:08-Oct-2018 Instruction Type:Provider Instructions for Treatment How to access health informa tion online Indication:Nonsmoker Start:24-Sep-2018 Instruction Type:Patient Education How to access health informa tion online - Detail Indication:Nonsmoker Start:24-Sep-2018 Instruction Type:Patient Education Patient Instructions Indication:Nonsmoker Start:24-Sep-2018 Instruction Type:Provider Instructions for Treatment How to access health informa tion online Indication:Hypothyroidism Start:05-Jul-2017 Instruction Type:Patient Education How to access health informa tion online - Detail Indication:Hypothyroidism Start:05-Jul-2017 Instruction Type:Patient Education Patient Instructions Indication:Nonsmoker Start:05-Jul-2017 Instruction Type:Provider Instructions for Treatment How to access health informa tion online Indication:Post-menopausal Start:05-Apr-2016 Instruction Type:Patient Education How to access health informa tion online - Detail Indication:Post-menopausal Start:05-Apr-2016 Instruction Type:Patient Education Patient Instructions Indication:Post-menopausal Start:05-Apr-2016 Instruction Type:Provider Instructions for Treatment How to access health informa tion online Indication:Cough Start:05-May-2015 Instruction Type:Patient Education How to access health informa tion online - Detail Indication:Cough Start:05-May-2015 Instruction Type:Patient Education Patient Instructions Indication:Cough Start:05-May-2015 Instruction Type:Provider Instructions for Treatment How to access health informa tion online Indication:Pain in unspecified joint Start:15-Mar-2015 Instruction Type:Patient Education How to access health informa tion online - Detail Indication:Pain in unspecified joint Start:15-Mar-2015 Instruction Type:Patient Education Patient Instructions Indication:Pain in unspecified joint Start:15-Mar-2015 Instruction Type:Provider Instructions for Treatment Patient Instructions Indication:Hypothyroidism Start:28-Feb-2015 Instruction Type:Provider Instructions for Treatment Patient Instructions Indication:Acute sinusitis, unspecified Start:19-Oct-2013 Instruction Type:Provider Instructions for Treatment Name Dates Details How to access health informa tion online Indication:Nonsmoker Start:09-Jun-2019 Instruction Type:Patient Education How to access health informa tion online - Detail Indication:Nonsmoker Start:09-Jun-2019 Instruction Type:Patient Education Patient Instructions Indication:Nonsmoker Start:09-Jun-2019 Instruction Type:Provider Instructions for Treatment How to access health informa tion online Indication:BMI 26.0-26.9,adult Start:26-Jan-2019 Instruction Type:Patient Education How to access health informa tion online - Detail Indication:BMI 26.0-26.9,adult Start:26-Jan-2019 Instruction Type:Patient Education Patient Instructions Indication:Nonsmoker Start:26-Jan-2019 Instruction Type:Provider Instructions for Treatment How to access health informa tion online Indication:Nonsmoker Start:29-Oct-2018 Instruction Type:Patient Education How to access health informa tion online - Detail Indication:Nonsmoker Start:29-Oct-2018 Instruction Type:Patient Education Patient Instructions Indication:Nonsmoker Start:29-Oct-2018 Instruction Type:Provider Instructions for Treatment How to access health informa tion online Indication:Nonsmoker Start:08-Oct-2018 Instruction Type:Patient Education How to access health informa tion online - Detail Indication:Nonsmoker Start:08-Oct-2018 Instruction Type:Patient Education Patient Instructions Indication:BMI 27.0-27.9,adult Start:08-Oct-2018 Instruction Type:Provider Instructions for Treatment How to access health informa tion online Indication:Nonsmoker Start:24-Sep-2018 Instruction Type:Patient Education How to access health informa tion online - Detail Indication:Nonsmoker Start:24-Sep-2018 Instruction Type:Patient Education Patient Instructions Indication:Nonsmoker Start:24-Sep-2018 Instruction Type:Provider Instructions for Treatment How to access health informa tion online Indication:Hypothyroidism Start:05-Jul-2017 Instruction Type:Patient Education How to access health informa tion online - Detail Indication:Hypothyroidism Start:05-Jul-2017 Instruction Type:Patient Education Patient Instructions Indication:Nonsmoker Start:05-Jul-2017 Instruction Type:Provider Instructions for Treatment How to access health informa tion online Indication:Post-menopausal Start:05-Apr-2016 Instruction Type:Patient Education How to access health informa tion online - Detail Indication:Post-menopausal Start:05-Apr-2016 Instruction Type:Patient Education Patient Instructions Indication:Post-menopausal Start:05-Apr-2016 Instruction Type:Provider Instructions for Treatment How to access health informa tion online Indication:Cough Start:05-May-2015 Instruction Type:Patient Education How to access health informa tion online - Detail Indication:Cough Start:05-May-2015 Instruction Type:Patient Education Patient Instructions Indication:Cough Start:05-May-2015 Instruction Type:Provider Instructions for Treatment How to access health informa tion online Indication:Pain in unspecified joint Start:15-Mar-2015 Instruction Type:Patient Education How to access health informa tion online - Detail Indication:Pain in unspecified joint Start:15-Mar-2015 Instruction Type:Patient Education Patient Instructions Indication:Pain in unspecified joint Start:15-Mar-2015 Instruction Type:Provider Instructions for Treatment Patient Instructions Indication:Hypothyroidism Start:28-Feb-2015 Instruction Type:Provider Instructions for Treatment Patient Instructions Indication:Acute sinusitis, unspecified Start:19-Oct-2013 Instruction Type:Provider Instructions for Treatment Name Dates Details How to access health informa tion online Indication:Nonsmoker Start:09-Feb-2020 Instruction Type:Patient Education How to access health informa tion online - Detail Indication:Nonsmoker Start:09-Feb-2020 Instruction Type:Patient Education Patient Instructions Indication:Nonsmoker Start:09-Feb-2020 Instruction Type:Provider Instructions for Treatment How to access health informa tion online Indication:Nonsmoker Start:09-Jun-2019 Instruction Type:Patient Education How to access health informa tion online - Detail Indication:Nonsmoker Start:09-Jun-2019 Instruction Type:Patient Education Patient Instructions Indication:Nonsmoker Start:09-Jun-2019 Instruction Type:Provider Instructions for Treatment How to access health informa tion online Indication:BMI 26.0-26.9,adult Start:26-Jan-2019 Instruction Type:Patient Education How to access health informa tion online - Detail Indication:BMI 26.0-26.9,adult Start:26-Jan-2019 Instruction Type:Patient Education Patient Instructions Indication:Nonsmoker Start:26-Jan-2019 Instruction Type:Provider Instructions for Treatment How to access health informa tion online Indication:Nonsmoker Start:29-Oct-2018 Instruction Type:Patient Education How to access health informa tion online - Detail Indication:Nonsmoker Start:29-Oct-2018 Instruction Type:Patient Education Patient Instructions Indication:Nonsmoker Start:29-Oct-2018 Instruction Type:Provider Instructions for Treatment How to access health informa tion online Indication:Nonsmoker Start:08-Oct-2018 Instruction Type:Patient Education How to access health informa tion online - Detail Indication:Nonsmoker Start:08-Oct-2018 Instruction Type:Patient Education Patient Instructions Indication:BMI 27.0-27.9,adult Start:08-Oct-2018 Instruction Type:Provider Instructions for Treatment How to access health informa tion online Indication:Nonsmoker Start:24-Sep-2018 Instruction Type:Patient Education How to access health informa tion online - Detail Indication:Nonsmoker Start:24-Sep-2018 Instruction Type:Patient Education Patient Instructions Indication:Nonsmoker Start:24-Sep-2018 Instruction Type:Provider Instructions for Treatment How to access health informa tion online Indication:Hypothyroidism Start:05-Jul-2017 Instruction Type:Patient Education How to access health informa tion online - Detail Indication:Hypothyroidism Start:05-Jul-2017 Instruction Type:Patient Education Patient Instructions Indication:Nonsmoker Start:05-Jul-2017 Instruction Type:Provider Instructions for Treatment How to access health informa tion online Indication:Post-menopausal Start:05-Apr-2016 Instruction Type:Patient Education How to access health informa tion online - Detail Indication:Post-menopausal Start:05-Apr-2016 Instruction Type:Patient Education Patient Instructions Indication:Post-menopausal Start:05-Apr-2016 Instruction Type:Provider Instructions for Treatment How to access health informa tion online Indication:Cough Start:05-May-2015 Instruction Type:Patient Education How to access health informa tion online - Detail Indication:Cough Start:05-May-2015 Instruction Type:Patient Education Patient Instructions Indication:Cough Start:05-May-2015 Instruction Type:Provider Instructions for Treatment How to access health informa tion online Indication:Pain in unspecified joint Start:15-Mar-2015 Instruction Type:Patient Education How to access health informa tion online - Detail Indication:Pain in unspecified joint Start:15-Mar-2015 Instruction Type:Patient Education Patient Instructions Indication:Pain in unspecified joint Start:15-Mar-2015 Instruction Type:Provider Instructions for Treatment Patient Instructions Indication:Hypothyroidism Start:28-Feb-2015 Instruction Type:Provider Instructions for Treatment Patient Instructions Indication:Acute sinusitis, unspecified Start:19-Oct-2013 Instruction Type:Provider Instructions for Treatment Name Dates Details How to access health informa tion online Indication:Nonsmoker Start:09-Feb-2020 Instruction Type:Patient Education How to access health informa tion online - Detail Indication:Nonsmoker Start:09-Feb-2020 Instruction Type:Patient Education Patient Instructions Indication:Nonsmoker Start:09-Feb-2020 Instruction Type:Provider Instructions for Treatment How to access health informa tion online Indication:Nonsmoker Start:09-Jun-2019 Instruction Type:Patient Education How to access health informa tion online - Detail Indication:Nonsmoker Start:09-Jun-2019 Instruction Type:Patient Education Patient Instructions Indication:Nonsmoker Start:09-Jun-2019 Instruction Type:Provider Instructions for Treatment How to access health informa tion online Indication:BMI 26.0-26.9,adult Start:26-Jan-2019 Instruction Type:Patient Education How to access health informa tion online - Detail Indication:BMI 26.0-26.9,adult Start:26-Jan-2019 Instruction Type:Patient Education Patient Instructions Indication:Nonsmoker Start:26-Jan-2019 Instruction Type:Provider Instructions for Treatment How to access health informa tion online Indication:Nonsmoker Start:29-Oct-2018 Instruction Type:Patient Education How to access health informa tion online - Detail Indication:Nonsmoker Start:29-Oct-2018 Instruction Type:Patient Education Patient Instructions Indication:Nonsmoker Start:29-Oct-2018 Instruction Type:Provider Instructions for Treatment How to access health informa tion online Indication:Nonsmoker Start:08-Oct-2018 Instruction Type:Patient Education How to access health informa tion online - Detail Indication:Nonsmoker Start:08-Oct-2018 Instruction Type:Patient Education Patient Instructions Indication:BMI 27.0-27.9,adult Start:08-Oct-2018 Instruction Type:Provider Instructions for Treatment How to access health informa tion online Indication:Nonsmoker Start:24-Sep-2018 Instruction Type:Patient Education How to access health informa tion online - Detail Indication:Nonsmoker Start:24-Sep-2018 Instruction Type:Patient Education Patient Instructions Indication:Nonsmoker Start:24-Sep-2018 Instruction Type:Provider Instructions for Treatment How to access health informa tion online Indication:Hypothyroidism Start:05-Jul-2017 Instruction Type:Patient Education How to access health informa tion online - Detail Indication:Hypothyroidism Start:05-Jul-2017 Instruction Type:Patient Education Patient Instructions Indication:Nonsmoker Start:05-Jul-2017 Instruction Type:Provider Instructions for Treatment How to access health informa tion online Indication:Post-menopausal Start:05-Apr-2016 Instruction Type:Patient Education How to access health informa tion online - Detail Indication:Post-menopausal Start:05-Apr-2016 Instruction Type:Patient Education Patient Instructions Indication:Post-menopausal Start:05-Apr-2016 Instruction Type:Provider Instructions for Treatment How to access health informa tion online Indication:Cough Start:05-May-2015 Instruction Type:Patient Education How to access health informa tion online - Detail Indication:Cough Start:05-May-2015 Instruction Type:Patient Education Patient Instructions Indication:Cough Start:05-May-2015 Instruction Type:Provider Instructions for Treatment How to access health informa tion online Indication:Pain in unspecified joint Start:15-Mar-2015 Instruction Type:Patient Education How to access health informa tion online - Detail Indication:Pain in unspecified joint Start:15-Mar-2015 Instruction Type:Patient Education Patient Instructions Indication:Pain in unspecified joint Start:15-Mar-2015 Instruction Type:Provider Instructions for Treatment Patient Instructions Indication:Hypothyroidism Start:28-Feb-2015 Instruction Type:Provider Instructions for Treatment Patient Instructions Indication:Acute sinusitis, unspecified Start:19-Oct-2013 Instruction Type:Provider Instructions for Treatment Name Dates Details How to access health informa tion online Indication:Nonsmoker Start:09-Feb-2020 Instruction Type:Patient Education How to access health informa tion online - Detail Indication:Nonsmoker Start:09-Feb-2020 Instruction Type:Patient Education Patient Instructions Indication:Vitamin D deficiency Start:09-Feb-2020 Instruction Type:Provider Instructions for Treatment How to access health informa tion online Indication:Nonsmoker Start:09-Jun-2019 Instruction Type:Patient Education How to access health informa tion online - Detail Indication:Nonsmoker Start:09-Jun-2019 Instruction Type:Patient Education Patient Instructions Indication:Nonsmoker Start:09-Jun-2019 Instruction Type:Provider Instructions for Treatment How to access health informa tion online Indication:BMI 26.0-26.9,adult Start:26-Jan-2019 Instruction Type:Patient Education How to access health informa tion online - Detail Indication:BMI 26.0-26.9,adult Start:26-Jan-2019 Instruction Type:Patient Education Patient Instructions Indication:Nonsmoker Start:26-Jan-2019 Instruction Type:Provider Instructions for Treatment How to access health informa tion online Indication:Nonsmoker Start:29-Oct-2018 Instruction Type:Patient Education How to access health informa tion online - Detail Indication:Nonsmoker Start:29-Oct-2018 Instruction Type:Patient Education Patient Instructions Indication:Nonsmoker Start:29-Oct-2018 Instruction Type:Provider Instructions for Treatment How to access health informa tion online Indication:Nonsmoker Start:08-Oct-2018 Instruction Type:Patient Education How to access health informa tion online - Detail Indication:Nonsmoker Start:08-Oct-2018 Instruction Type:Patient Education Patient Instructions Indication:BMI 27.0-27.9,adult Start:08-Oct-2018 Instruction Type:Provider Instructions for Treatment How to access health informa tion online Indication:Nonsmoker Start:24-Sep-2018 Instruction Type:Patient Education How to access health informa tion online - Detail Indication:Nonsmoker Start:24-Sep-2018 Instruction Type:Patient Education Patient Instructions Indication:Nonsmoker Start:24-Sep-2018 Instruction Type:Provider Instructions for Treatment How to access health informa tion online Indication:Hypothyroidism Start:05-Jul-2017 Instruction Type:Patient Education How to access health informa tion online - Detail Indication:Hypothyroidism Start:05-Jul-2017 Instruction Type:Patient Education Patient Instructions Indication:Nonsmoker Start:05-Jul-2017 Instruction Type:Provider Instructions for Treatment How to access health informa tion online Indication:Post-menopausal Start:05-Apr-2016 Instruction Type:Patient Education How to access health informa tion online - Detail Indication:Post-menopausal Start:05-Apr-2016 Instruction Type:Patient Education Patient Instructions Indication:Post-menopausal Start:05-Apr-2016 Instruction Type:Provider Instructions for Treatment How to access health informa tion online Indication:Cough Start:05-May-2015 Instruction Type:Patient Education How to access health informa tion online - Detail Indication:Cough Start:05-May-2015 Instruction Type:Patient Education Patient Instructions Indication:Cough Start:05-May-2015 Instruction Type:Provider Instructions for Treatment How to access health informa tion online Indication:Pain in unspecified joint Start:15-Mar-2015 Instruction Type:Patient Education How to access health informa tion online - Detail Indication:Pain in unspecified joint Start:15-Mar-2015 Instruction Type:Patient Education Patient Instructions Indication:Pain in unspecified joint Start:15-Mar-2015 Instruction Type:Provider Instructions for Treatment Patient Instructions Indication:Hypothyroidism Start:28-Feb-2015 Instruction Type:Provider Instructions for Treatment Patient Instructions Indication:Acute sinusitis, unspecified Start:19-Oct-2013 Instruction Type:Provider Instructions for Treatment Name Dates Details How to access health informa tion online Indication:Nonsmoker Start:09-Feb-2020 Instruction Type:Patient Education How to access health informa tion online - Detail Indication:Nonsmoker Start:09-Feb-2020 Instruction Type:Patient Education Patient Instructions Indication:Vitamin D deficiency Start:09-Feb-2020 Instruction Type:Provider Instructions for Treatment How to access health informa tion online Indication:Nonsmoker Start:09-Jun-2019 Instruction Type:Patient Education How to access health informa tion online - Detail Indication:Nonsmoker Start:09-Jun-2019 Instruction Type:Patient Education Patient Instructions Indication:Nonsmoker Start:09-Jun-2019 Instruction Type:Provider Instructions for Treatment How to access health informa tion online Indication:BMI 26.0-26.9,adult Start:26-Jan-2019 Instruction Type:Patient Education How to access health informa tion online - Detail Indication:BMI 26.0-26.9,adult Start:26-Jan-2019 Instruction Type:Patient Education Patient Instructions Indication:Nonsmoker Start:26-Jan-2019 Instruction Type:Provider Instructions for Treatment How to access health informa tion online Indication:Nonsmoker Start:29-Oct-2018 Instruction Type:Patient Education How to access health informa tion online - Detail Indication:Nonsmoker Start:29-Oct-2018 Instruction Type:Patient Education Patient Instructions Indication:Nonsmoker Start:29-Oct-2018 Instruction Type:Provider Instructions for Treatment How to access health informa tion online Indication:Nonsmoker Start:08-Oct-2018 Instruction Type:Patient Education How to access health informa tion online - Detail Indication:Nonsmoker Start:08-Oct-2018 Instruction Type:Patient Education Patient Instructions Indication:BMI 27.0-27.9,adult Start:08-Oct-2018 Instruction Type:Provider Instructions for Treatment How to access health informa tion online Indication:Nonsmoker Start:24-Sep-2018 Instruction Type:Patient Education How to access health informa tion online - Detail Indication:Nonsmoker Start:24-Sep-2018 Instruction Type:Patient Education Patient Instructions Indication:Nonsmoker Start:24-Sep-2018 Instruction Type:Provider Instructions for Treatment How to access health informa tion online Indication:Hypothyroidism Start:05-Jul-2017 Instruction Type:Patient Education How to access health informa tion online - Detail Indication:Hypothyroidism Start:05-Jul-2017 Instruction Type:Patient Education Patient Instructions Indication:Nonsmoker Start:05-Jul-2017 Instruction Type:Provider Instructions for Treatment How to access health informa tion online Indication:Post-menopausal Start:05-Apr-2016 Instruction Type:Patient Education How to access health informa tion online - Detail Indication:Post-menopausal Start:05-Apr-2016 Instruction Type:Patient Education Patient Instructions Indication:Post-menopausal Start:05-Apr-2016 Instruction Type:Provider Instructions for Treatment How to access health informa tion online Indication:Cough Start:05-May-2015 Instruction Type:Patient Education How to access health informa tion online - Detail Indication:Cough Start:05-May-2015 Instruction Type:Patient Education Patient Instructions Indication:Cough Start:05-May-2015 Instruction Type:Provider Instructions for Treatment How to access health informa tion online Indication:Pain in unspecified joint Start:15-Mar-2015 Instruction Type:Patient Education How to access health informa tion online - Detail Indication:Pain in unspecified joint Start:15-Mar-2015 Instruction Type:Patient Education Patient Instructions Indication:Pain in unspecified joint Start:15-Mar-2015 Instruction Type:Provider Instructions for Treatment Patient Instructions Indication:Hypothyroidism Start:28-Feb-2015 Instruction Type:Provider Instructions for Treatment Patient Instructions Indication:Acute sinusitis, unspecified Start:19-Oct-2013 Instruction Type:Provider Instructions for Treatment Name Dates Details How to access health informa tion online Indication:BMI 25.0-25.9,adult Start:23-Mar-2020 Instruction Type:Patient Education How to access health informa tion online - Detail Indication:BMI 25.0-25.9,adult Start:23-Mar-2020 Instruction Type:Patient Education Patient Instructions Indication:BMI 25.0-25.9,adult Start:23-Mar-2020 Instruction Type:Provider Instructions for Treatment How to access health informa tion online Indication:Nonsmoker Start:09-Feb-2020 Instruction Type:Patient Education How to access health informa tion online - Detail Indication:Nonsmoker Start:09-Feb-2020 Instruction Type:Patient Education Patient Instructions Indication:Vitamin D deficiency Start:09-Feb-2020 Instruction Type:Provider Instructions for Treatment How to access health informa tion online Indication:Nonsmoker Start:09-Jun-2019 Instruction Type:Patient Education How to access health informa tion online - Detail Indication:Nonsmoker Start:09-Jun-2019 Instruction Type:Patient Education Patient Instructions Indication:Nonsmoker Start:09-Jun-2019 Instruction Type:Provider Instructions for Treatment How to access health informa tion online Indication:BMI 26.0-26.9,adult Start:26-Jan-2019 Instruction Type:Patient Education How to access health informa tion online - Detail Indication:BMI 26.0-26.9,adult Start:26-Jan-2019 Instruction Type:Patient Education Patient Instructions Indication:Nonsmoker Start:26-Jan-2019 Instruction Type:Provider Instructions for Treatment How to access health informa tion online Indication:Nonsmoker Start:29-Oct-2018 Instruction Type:Patient Education How to access health informa tion online - Detail Indication:Nonsmoker Start:29-Oct-2018 Instruction Type:Patient Education Patient Instructions Indication:Nonsmoker Start:29-Oct-2018 Instruction Type:Provider Instructions for Treatment How to access health informa tion online Indication:Nonsmoker Start:08-Oct-2018 Instruction Type:Patient Education How to access health informa tion online - Detail Indication:Nonsmoker Start:08-Oct-2018 Instruction Type:Patient Education Patient Instructions Indication:BMI 27.0-27.9,adult Start:08-Oct-2018 Instruction Type:Provider Instructions for Treatment How to access health informa tion online Indication:Nonsmoker Start:24-Sep-2018 Instruction Type:Patient Education How to access health informa tion online - Detail Indication:Nonsmoker Start:24-Sep-2018 Instruction Type:Patient Education Patient Instructions Indication:Nonsmoker Start:24-Sep-2018 Instruction Type:Provider Instructions for Treatment How to access health informa tion online Indication:Hypothyroidism Start:05-Jul-2017 Instruction Type:Patient Education How to access health informa tion online - Detail Indication:Hypothyroidism Start:05-Jul-2017 Instruction Type:Patient Education Patient Instructions Indication:Nonsmoker Start:05-Jul-2017 Instruction Type:Provider Instructions for Treatment How to access health informa tion online Indication:Post-menopausal Start:05-Apr-2016 Instruction Type:Patient Education How to access health informa tion online - Detail Indication:Post-menopausal Start:05-Apr-2016 Instruction Type:Patient Education Patient Instructions Indication:Post-menopausal Start:05-Apr-2016 Instruction Type:Provider Instructions for Treatment How to access health informa tion online Indication:Cough Start:05-May-2015 Instruction Type:Patient Education How to access health informa tion online - Detail Indication:Cough Start:05-May-2015 Instruction Type:Patient Education Patient Instructions Indication:Cough Start:05-May-2015 Instruction Type:Provider Instructions for Treatment How to access health informa tion online Indication:Pain in unspecified joint Start:15-Mar-2015 Instruction Type:Patient Education How to access health informa tion online - Detail Indication:Pain in unspecified joint Start:15-Mar-2015 Instruction Type:Patient Education Patient Instructions Indication:Pain in unspecified joint Start:15-Mar-2015 Instruction Type:Provider Instructions for Treatment Patient Instructions Indication:Hypothyroidism Start:28-Feb-2015 Instruction Type:Provider Instructions for Treatment Patient Instructions Indication:Acute sinusitis, unspecified Start:19-Oct-2013 Instruction Type:Provider Instructions for Treatment Name Dates Details How to access health informa tion online Indication:BMI 25.0-25.9,adult Start:23-Mar-2020 Instruction Type:Patient Education How to access health informa tion online - Detail Indication:BMI 25.0-25.9,adult Start:23-Mar-2020 Instruction Type:Patient Education Patient Instructions Indication:BMI 25.0-25.9,adult Start:23-Mar-2020 Instruction Type:Provider Instructions for Treatment How to access health informa tion online Indication:Nonsmoker Start:09-Feb-2020 Instruction Type:Patient Education How to access health informa tion online - Detail Indication:Nonsmoker Start:09-Feb-2020 Instruction Type:Patient Education Patient Instructions Indication:Vitamin D deficiency Start:09-Feb-2020 Instruction Type:Provider Instructions for Treatment How to access health informa tion online Indication:Nonsmoker Start:09-Jun-2019 Instruction Type:Patient Education How to access health informa tion online - Detail Indication:Nonsmoker Start:09-Jun-2019 Instruction Type:Patient Education Patient Instructions Indication:Nonsmoker Start:09-Jun-2019 Instruction Type:Provider Instructions for Treatment How to access health informa tion online Indication:BMI 26.0-26.9,adult Start:26-Jan-2019 Instruction Type:Patient Education How to access health informa tion online - Detail Indication:BMI 26.0-26.9,adult Start:26-Jan-2019 Instruction Type:Patient Education Patient Instructions Indication:Nonsmoker Start:26-Jan-2019 Instruction Type:Provider Instructions for Treatment How to access health informa tion online Indication:Nonsmoker Start:29-Oct-2018 Instruction Type:Patient Education How to access health informa tion online - Detail Indication:Nonsmoker Start:29-Oct-2018 Instruction Type:Patient Education Patient Instructions Indication:Nonsmoker Start:29-Oct-2018 Instruction Type:Provider Instructions for Treatment How to access health informa tion online Indication:Nonsmoker Start:08-Oct-2018 Instruction Type:Patient Education How to access health informa tion online - Detail Indication:Nonsmoker Start:08-Oct-2018 Instruction Type:Patient Education Patient Instructions Indication:BMI 27.0-27.9,adult Start:08-Oct-2018 Instruction Type:Provider Instructions for Treatment How to access health informa tion online Indication:Nonsmoker Start:24-Sep-2018 Instruction Type:Patient Education How to access health informa tion online - Detail Indication:Nonsmoker Start:24-Sep-2018 Instruction Type:Patient Education Patient Instructions Indication:Nonsmoker Start:24-Sep-2018 Instruction Type:Provider Instructions for Treatment How to access health informa tion online Indication:Hypothyroidism Start:05-Jul-2017 Instruction Type:Patient Education How to access health informa tion online - Detail Indication:Hypothyroidism Start:05-Jul-2017 Instruction Type:Patient Education Patient Instructions Indication:Nonsmoker Start:05-Jul-2017 Instruction Type:Provider Instructions for Treatment How to access health informa tion online Indication:Post-menopausal Start:05-Apr-2016 Instruction Type:Patient Education How to access health informa tion online - Detail Indication:Post-menopausal Start:05-Apr-2016 Instruction Type:Patient Education Patient Instructions Indication:Post-menopausal Start:05-Apr-2016 Instruction Type:Provider Instructions for Treatment How to access health informa tion online Indication:Cough Start:05-May-2015 Instruction Type:Patient Education How to access health informa tion online - Detail Indication:Cough Start:05-May-2015 Instruction Type:Patient Education Patient Instructions Indication:Cough Start:05-May-2015 Instruction Type:Provider Instructions for Treatment How to access health informa tion online Indication:Pain in unspecified joint Start:15-Mar-2015 Instruction Type:Patient Education How to access health informa tion online - Detail Indication:Pain in unspecified joint Start:15-Mar-2015 Instruction Type:Patient Education Patient Instructions Indication:Pain in unspecified joint Start:15-Mar-2015 Instruction Type:Provider Instructions for Treatment Patient Instructions Indication:Hypothyroidism Start:28-Feb-2015 Instruction Type:Provider Instructions for Treatment Patient Instructions Indication:Acute sinusitis, unspecified Start:19-Oct-2013 Instruction Type:Provider Instructions for Treatment Name Dates Details Patient Instructions Indication:Post-menopausal Start:16-Aug-2020 Instruction Type:Provider Instructions for Treatment How to Access Health Informa tion Online using Patient Portal and [employer]rd [employer] Apps Indication:Nonsmoker Start:16-Aug-2020 Instruction Type:Patient Education How to access health informa tion online Indication:BMI 25.0-25.9,adult Start:23-Mar-2020 Instruction Type:Patient Education How to access health informa tion online - Detail Indication:BMI 25.0-25.9,adult Start:23-Mar-2020 Instruction Type:Patient Education Patient Instructions Indication:BMI 25.0-25.9,adult Start:23-Mar-2020 Instruction Type:Provider Instructions for Treatment How to access health informa tion online Indication:Nonsmoker Start:09-Feb-2020 Instruction Type:Patient Education How to access health informa tion online - Detail Indication:Nonsmoker Start:09-Feb-2020 Instruction Type:Patient Education Patient Instructions Indication:Vitamin D deficiency Start:09-Feb-2020 Instruction Type:Provider Instructions for Treatment How to access health informa tion online Indication:Nonsmoker Start:09-Jun-2019 Instruction Type:Patient Education How to access health informa tion online - Detail Indication:Nonsmoker Start:09-Jun-2019 Instruction Type:Patient Education Patient Instructions Indication:Nonsmoker Start:09-Jun-2019 Instruction Type:Provider Instructions for Treatment How to access health informa tion online Indication:BMI 26.0-26.9,adult Start:26-Jan-2019 Instruction Type:Patient Education How to access health informa tion online - Detail Indication:BMI 26.0-26.9,adult Start:26-Jan-2019 Instruction Type:Patient Education Patient Instructions Indication:Nonsmoker Start:26-Jan-2019 Instruction Type:Provider Instructions for Treatment How to access health informa tion online Indication:Nonsmoker Start:29-Oct-2018 Instruction Type:Patient Education How to access health informa tion online - Detail Indication:Nonsmoker Start:29-Oct-2018 Instruction Type:Patient Education Patient Instructions Indication:Nonsmoker Start:29-Oct-2018 Instruction Type:Provider Instructions for Treatment How to access health informa tion online Indication:Nonsmoker Start:08-Oct-2018 Instruction Type:Patient Education How to access health informa tion online - Detail Indication:Nonsmoker Start:08-Oct-2018 Instruction Type:Patient Education Patient Instructions Indication:BMI 27.0-27.9,adult Start:08-Oct-2018 Instruction Type:Provider Instructions for Treatment How to access health informa tion online Indication:Nonsmoker Start:24-Sep-2018 Instruction Type:Patient Education How to access health informa tion online - Detail Indication:Nonsmoker Start:24-Sep-2018 Instruction Type:Patient Education Patient Instructions Indication:Nonsmoker Start:24-Sep-2018 Instruction Type:Provider Instructions for Treatment How to access health informa tion online Indication:Hypothyroidism Start:05-Jul-2017 Instruction Type:Patient Education How to access health informa tion online - Detail Indication:Hypothyroidism Start:05-Jul-2017 Instruction Type:Patient Education Patient Instructions Indication:Nonsmoker Start:05-Jul-2017 Instruction Type:Provider Instructions for Treatment How to access health informa tion online Indication:Post-menopausal Start:05-Apr-2016 Instruction Type:Patient Education How to access health informa tion online - Detail Indication:Post-menopausal Start:05-Apr-2016 Instruction Type:Patient Education Patient Instructions Indication:Post-menopausal Start:05-Apr-2016 Instruction Type:Provider Instructions for Treatment How to access health informa tion online Indication:Cough Start:05-May-2015 Instruction Type:Patient Education How to access health informa tion online - Detail Indication:Cough Start:05-May-2015 Instruction Type:Patient Education Patient Instructions Indication:Cough Start:05-May-2015 Instruction Type:Provider Instructions for Treatment How to access health informa tion online Indication:Pain in unspecified joint Start:15-Mar-2015 Instruction Type:Patient Education How to access health informa tion online - Detail Indication:Pain in unspecified joint Start:15-Mar-2015 Instruction Type:Patient Education Patient Instructions Indication:Pain in unspecified joint Start:15-Mar-2015 Instruction Type:Provider Instructions for Treatment Patient Instructions Indication:Hypothyroidism Start:28-Feb-2015 Instruction Type:Provider Instructions for Treatment Patient Instructions Indication:Acute sinusitis, unspecified Start:19-Oct-2013 Instruction Type:Provider Instructions for Treatment Name Dates Details Patient Instructions Indication:Nonsmoker Start:04-Oct-2020 Instruction Type:Provider Instructions for Treatment How to Access Health Informa tion Online using Patient Portal and [employer]rd [employer] Apps Indication:Nonsmoker Start:04-Oct-2020 Instruction Type:Patient Education Patient Instructions Indication:Post-menopausal Start:16-Aug-2020 Instruction Type:Provider Instructions for Treatment How to Access Health Informa tion Online using Patient Portal and [employer]rd [employer] Apps Indication:Nonsmoker Start:16-Aug-2020 Instruction Type:Patient Education How to access health informa tion online Indication:BMI 25.0-25.9,adult Start:23-Mar-2020 Instruction Type:Patient Education How to access health informa tion online - Detail Indication:BMI 25.0-25.9,adult Start:23-Mar-2020 Instruction Type:Patient Education Patient Instructions Indication:BMI 25.0-25.9,adult Start:23-Mar-2020 Instruction Type:Provider Instructions for Treatment How to access health informa tion online Indication:Nonsmoker Start:09-Feb-2020 Instruction Type:Patient Education How to access health informa tion online - Detail Indication:Nonsmoker Start:09-Feb-2020 Instruction Type:Patient Education Patient Instructions Indication:Vitamin D deficiency Start:09-Feb-2020 Instruction Type:Provider Instructions for Treatment How to access health informa tion online Indication:Nonsmoker Start:09-Jun-2019 Instruction Type:Patient Education How to access health informa tion online - Detail Indication:Nonsmoker Start:09-Jun-2019 Instruction Type:Patient Education Patient Instructions Indication:Nonsmoker Start:09-Jun-2019 Instruction Type:Provider Instructions for Treatment How to access health informa tion online Indication:BMI 26.0-26.9,adult Start:26-Jan-2019 Instruction Type:Patient Education How to access health informa tion online - Detail Indication:BMI 26.0-26.9,adult Start:26-Jan-2019 Instruction Type:Patient Education Patient Instructions Indication:Nonsmoker Start:26-Jan-2019 Instruction Type:Provider Instructions for Treatment How to access health informa tion online Indication:Nonsmoker Start:29-Oct-2018 Instruction Type:Patient Education How to access health informa tion online - Detail Indication:Nonsmoker Start:29-Oct-2018 Instruction Type:Patient Education Patient Instructions Indication:Nonsmoker Start:29-Oct-2018 Instruction Type:Provider Instructions for Treatment How to access health informa tion online Indication:Nonsmoker Start:08-Oct-2018 Instruction Type:Patient Education How to access health informa tion online - Detail Indication:Nonsmoker Start:08-Oct-2018 Instruction Type:Patient Education Patient Instructions Indication:BMI 27.0-27.9,adult Start:08-Oct-2018 Instruction Type:Provider Instructions for Treatment How to access health informa tion online Indication:Nonsmoker Start:24-Sep-2018 Instruction Type:Patient Education How to access health informa tion online - Detail Indication:Nonsmoker Start:24-Sep-2018 Instruction Type:Patient Education Patient Instructions Indication:Nonsmoker Start:24-Sep-2018 Instruction Type:Provider Instructions for Treatment How to access health informa tion online Indication:Hypothyroidism Start:05-Jul-2017 Instruction Type:Patient Education How to access health informa tion online - Detail Indication:Hypothyroidism Start:05-Jul-2017 Instruction Type:Patient Education Patient Instructions Indication:Nonsmoker Start:05-Jul-2017 Instruction Type:Provider Instructions for Treatment How to access health informa tion online Indication:Post-menopausal Start:05-Apr-2016 Instruction Type:Patient Education How to access health informa tion online - Detail Indication:Post-menopausal Start:05-Apr-2016 Instruction Type:Patient Education Patient Instructions Indication:Post-menopausal Start:05-Apr-2016 Instruction Type:Provider Instructions for Treatment How to access health informa tion online Indication:Cough Start:05-May-2015 Instruction Type:Patient Education How to access health informa tion online - Detail Indication:Cough Start:05-May-2015 Instruction Type:Patient Education Patient Instructions Indication:Cough Start:05-May-2015 Instruction Type:Provider Instructions for Treatment How to access health informa tion online Indication:Pain in unspecified joint Start:15-Mar-2015 Instruction Type:Patient Education How to access health informa tion online - Detail Indication:Pain in unspecified joint Start:15-Mar-2015 Instruction Type:Patient Education Patient Instructions Indication:Pain in unspecified joint Start:15-Mar-2015 Instruction Type:Provider Instructions for Treatment Patient Instructions Indication:Hypothyroidism Start:28-Feb-2015 Instruction Type:Provider Instructions for Treatment Patient Instructions Indication:Acute sinusitis, unspecified Start:19-Oct-2013 Instruction Type:Provider Instructions for Treatment Name Dates Details Patient Instructions Indication:Nonsmoker Start:04-Oct-2020 Instruction Type:Provider Instructions for Treatment How to Access Health Informa tion Online using Patient Portal and [employer]rd [employer] Apps Indication:Nonsmoker Start:04-Oct-2020 Instruction Type:Patient Education Patient Instructions Indication:Post-menopausal Start:16-Aug-2020 Instruction Type:Provider Instructions for Treatment How to Access Health Informa tion Online using Patient Portal and [employer] Apps Indication:Nonsmoker Start:16-Aug-2020 Instruction Type:Patient Education How to access health informa tion online Indication:BMI 25.0-25.9,adult Start:23-Mar-2020 Instruction Type:Patient Education How to access health informa tion online - Detail Indication:BMI 25.0-25.9,adult Start:23-Mar-2020 Instruction Type:Patient Education Patient Instructions Indication:BMI 25.0-25.9,adult Start:23-Mar-2020 Instruction Type:Provider Instructions for Treatment How to access health informa tion online Indication:Nonsmoker Start:09-Feb-2020 Instruction Type:Patient Education How to access health informa tion online - Detail Indication:Nonsmoker Start:09-Feb-2020 Instruction Type:Patient Education Patient Instructions Indication:Vitamin D deficiency Start:09-Feb-2020 Instruction Type:Provider Instructions for Treatment How to access health informa tion online Indication:Nonsmoker Start:09-Jun-2019 Instruction Type:Patient Education How to access health informa tion online - Detail Indication:Nonsmoker Start:09-Jun-2019 Instruction Type:Patient Education Patient Instructions Indication:Nonsmoker Start:09-Jun-2019 Instruction Type:Provider Instructions for Treatment How to access health informa tion online Indication:BMI 26.0-26.9,adult Start:26-Jan-2019 Instruction Type:Patient Education How to access health informa tion online - Detail Indication:BMI 26.0-26.9,adult Start:26-Jan-2019 Instruction Type:Patient Education Patient Instructions Indication:Nonsmoker Start:26-Jan-2019 Instruction Type:Provider Instructions for Treatment How to access health informa tion online Indication:Nonsmoker Start:29-Oct-2018 Instruction Type:Patient Education How to access health informa tion online - Detail Indication:Nonsmoker Start:29-Oct-2018 Instruction Type:Patient Education Patient Instructions Indication:Nonsmoker Start:29-Oct-2018 Instruction Type:Provider Instructions for Treatment How to access health informa tion online Indication:Nonsmoker Start:08-Oct-2018 Instruction Type:Patient Education How to access health informa tion online - Detail Indication:Nonsmoker Start:08-Oct-2018 Instruction Type:Patient Education Patient Instructions Indication:BMI 27.0-27.9,adult Start:08-Oct-2018 Instruction Type:Provider Instructions for Treatment How to access health informa tion online Indication:Nonsmoker Start:24-Sep-2018 Instruction Type:Patient Education How to access health informa tion online - Detail Indication:Nonsmoker Start:24-Sep-2018 Instruction Type:Patient Education Patient Instructions Indication:Nonsmoker Start:24-Sep-2018 Instruction Type:Provider Instructions for Treatment How to access health informa tion online Indication:Hypothyroidism Start:05-Jul-2017 Instruction Type:Patient Education How to access health informa tion online - Detail Indication:Hypothyroidism Start:05-Jul-2017 Instruction Type:Patient Education Patient Instructions Indication:Nonsmoker Start:05-Jul-2017 Instruction Type:Provider Instructions for Treatment How to access health informa tion online Indication:Post-menopausal Start:05-Apr-2016 Instruction Type:Patient Education How to access health informa tion online - Detail Indication:Post-menopausal Start:05-Apr-2016 Instruction Type:Patient Education Patient Instructions Indication:Post-menopausal Start:05-Apr-2016 Instruction Type:Provider Instructions for Treatment How to access health informa tion online Indication:Cough Start:05-May-2015 Instruction Type:Patient Education How to access health informa tion online - Detail Indication:Cough Start:05-May-2015 Instruction Type:Patient Education Patient Instructions Indication:Cough Start:05-May-2015 Instruction Type:Provider Instructions for Treatment How to access health informa tion online Indication:Pain in unspecified joint Start:15-Mar-2015 Instruction Type:Patient Education How to access health informa tion online - Detail Indication:Pain in unspecified joint Start:15-Mar-2015 Instruction Type:Patient Education Patient Instructions Indication:Pain in unspecified joint Start:15-Mar-2015 Instruction Type:Provider Instructions for Treatment Patient Instructions Indication:Hypothyroidism Start:28-Feb-2015 Instruction Type:Provider Instructions for Treatment Patient Instructions Indication:Acute sinusitis, unspecified Start:19-Oct-2013 Instruction Type:Provider Instructions for Treatment Name Dates Details How to access health informa tion online Indication:Nonsmoker Start:09-Jun-2019 Instruction Type:Patient Education How to access health informa tion online - Detail Indication:Nonsmoker Start:09-Jun-2019 Instruction Type:Patient Education Patient Instructions Indication:Nonsmoker Start:09-Jun-2019 Instruction Type:Provider Instructions for Treatment How to access health informa tion online Indication:BMI 26.0-26.9,adult Start:26-Jan-2019 Instruction Type:Patient Education How to access health informa tion online - Detail Indication:BMI 26.0-26.9,adult Start:26-Jan-2019 Instruction Type:Patient Education Patient Instructions Indication:Nonsmoker Start:26-Jan-2019 Instruction Type:Provider Instructions for Treatment How to access health informa tion online Indication:Nonsmoker Start:29-Oct-2018 Instruction Type:Patient Education How to access health informa tion online - Detail Indication:Nonsmoker Start:29-Oct-2018 Instruction Type:Patient Education Patient Instructions Indication:Nonsmoker Start:29-Oct-2018 Instruction Type:Provider Instructions for Treatment How to access health informa tion online Indication:Nonsmoker Start:08-Oct-2018 Instruction Type:Patient Education How to access health informa tion online - Detail Indication:Nonsmoker Start:08-Oct-2018 Instruction Type:Patient Education Patient Instructions Indication:BMI 27.0-27.9,adult Start:08-Oct-2018 Instruction Type:Provider Instructions for Treatment How to access health informa tion online Indication:Nonsmoker Start:24-Sep-2018 Instruction Type:Patient Education How to access health informa tion online - Detail Indication:Nonsmoker Start:24-Sep-2018 Instruction Type:Patient Education Patient Instructions Indication:Nonsmoker Start:24-Sep-2018 Instruction Type:Provider Instructions for Treatment How to access health informa tion online Indication:Hypothyroidism Start:05-Jul-2017 Instruction Type:Patient Education How to access health informa tion online - Detail Indication:Hypothyroidism Start:05-Jul-2017 Instruction Type:Patient Education Patient Instructions Indication:Nonsmoker Start:05-Jul-2017 Instruction Type:Provider Instructions for Treatment How to access health informa tion online Indication:Post-menopausal Start:05-Apr-2016 Instruction Type:Patient Education How to access health informa tion online - Detail Indication:Post-menopausal Start:05-Apr-2016 Instruction Type:Patient Education Patient Instructions Indication:Post-menopausal Start:05-Apr-2016 Instruction Type:Provider Instructions for Treatment How to access health informa tion online Indication:Cough Start:05-May-2015 Instruction Type:Patient Education How to access health informa tion online - Detail Indication:Cough Start:05-May-2015 Instruction Type:Patient Education Patient Instructions Indication:Cough Start:05-May-2015 Instruction Type:Provider Instructions for Treatment How to access health informa tion online Indication:Pain in unspecified joint Start:15-Mar-2015 Instruction Type:Patient Education How to access health informa tion online - Detail Indication:Pain in unspecified joint Start:15-Mar-2015 Instruction Type:Patient Education Patient Instructions Indication:Pain in unspecified joint Start:15-Mar-2015 Instruction Type:Provider Instructions for Treatment Patient Instructions Indication:Hypothyroidism Start:28-Feb-2015 Instruction Type:Provider Instructions for Treatment Patient Instructions Indication:Acute sinusitis, unspecified Start:19-Oct-2013 Instruction Type:Provider Instructions for Treatment Summary Purpose Family History No Family History Records FoundNo Family History Records Found Advance Directives No Advanced Directives Records Found Advance Directive Response Recorded Date/ Time Living Will Yes October 15, 2023 3:57pm Power of Automotive Quality Manager Yes October 14 3:57pm Chief Complaint and Reason for Visit Chief Complaint Right breast implant leaking/moving RIGHT BREAST PAIN Reason for Visit Breast asymmetry Breast implant capsular contracture Presence of silicone breast implant Additional Source Comments INFORMATION SOURCE (unrecogn ized section and content) DATE CREATED AUTHOR 06/30/2022 [facility] DATE CREATED AUTHOR AUTHOR'S ORGANIZ ATION 05/13/2025 [facility] Care Teams (unrecognized sec tion and content) Team Status: Active Member Role Status Dates Connie Billings NP, ROLL LINE OPERATOR-C Family Provider Active Peng Guzman NP-[facility] Primary Care Provider Active Team Status: Inactive Member Role Status Dates Peng Guzman NP-[facility] Primary Care Provider, Referring Provider Active Dr. Emilia Concepcion MD Attending Provider Active Team Status: Inactive Member Role Status Dates Peng Guzman NP-[facility] Primary Care Provi priya, Attending Provider, Referring Provider Active Goals (unrecognized section and content) Goals may be documented in a n alternate section FOR RECORDS PERTAINING TO PATIENTS WHO ARE OR HAVE BEEN ENROLLED IN A CHEMICAL DEPENDENCY/SUBSTANCEABUSE PROGRAM, SOME INFORMATION MAY BE OMITTED. This clinical summary was aggregated from multiple sources. Caution should be exercised in using it in the provision of clinical care. This summary normalizes information from multiple sources, and as a consequence, information in this document may materially change the coding, format and clinical context of patient data. In addition, data may be omitted in some cases. CLINICAL DECISIONS SHOULD BE BASED ON THE PRIMARY CLINICAL RECORDS. [facility] [email or web address] provides no warranty or guarantee of the accuracy or completeness of information in this document.
== END | disposition home or self-care (01) ==
LOC: OPBD 06:59
PROVIDERS: PCP Nurse Practitioner Family; Referring Provider Nurse Practitioner Family; Visit Provider Nurse Practitioner Family
DX: Z12.31 Encounter for screening mammogram for malignant neoplasm of breast (principal); Z98.82 Breast implant status; Z78.0 Asymptomatic menopausal state; M81.0 Age-related osteoporosis without current pathological fracture
CPT/HCPCS: 77063; 77067; 77080